=== PATIENT | male | born 1945 | race Two or more races ===

== ENCOUNTER → 2024-12-28 | Outpatient (CLI) | payer OTHER, MEDICAID, SELFPAY ==
[2024-12-28 09:00] LABS: Basophils % (Auto) 1 % (0-2.5); Eosinophils # (Auto) 0.2 Thou/mm3 (0.0-0.5); Eosinophils % (Auto) 3 % (0-10); Hematocrit 41.3 % (41.0-53.0); Hemoglobin 14.1 g/dL (13.5-16.0); Immature Granulocytes % (Auto) 0 % (0-0); Immature Granulocytes Auto 0.02 Thou/mm3 (0.00-0.00); Lymphocytes # (Auto) 1.7 Thou/mm3 (1.0-4.8); Lymphocytes % (Auto) 28 % (10-50); Mean Corpuscular HGB Conc 34.1 g/dl (31.0-37.0); Mean Corpuscular Hemoglobin 30.3 pg (25.0-35.0); Mean Corpuscular Volume 89 fL (80-100); Monocytes # (Auto) 0.7 Thou/mm3 (0.0-0.8); Monocytes % (Auto) 11 % (0-12); Neutrophils # (Auto) 3.4 Thou/mm3 (1.8-7.7); Neutrophils % (Auto) 57 % (37-80); Nucleated Red Blood Cell % 0 /100 WBC (0); Platelet Count 169 Thou/mm3 (140-440); RDW Standard Deviation 43.1 fL (35.1-43.9); Red Blood Count 4.65 Miln/mm3 (4.50-5.90); White Blood Count 6.1 Thou/mm3 (3.8-10.6)
[2024-12-28 09:06] LABS: Glucose Estimated Average 148 mg/dL (80-131); Hemoglobin A1C 6.8 % Hgb (4.8-6.0)
[2024-12-28 09:23] LABS: Vitamin D 25 Hydroxy Total 38.1 ng/mL (7.3-40.2)
[2024-12-28 09:40] LABS: Alanine Aminotransferase < 7 U/L (10-49); Albumin/Globulin Ratio 1.7 (1.2-2.2); Alkaline Phosphatase 152 U/L (46-116); Anion Gap 10 (7-16); Aspartate Amino Transferase 14 U/L (0-34); BUN/Creatinine Ratio 18 Ratio (12-20); Bilirubin,Total 0.6 mg/dL (0.3-1.2); Blood Urea Nitrogen 25 mg/dL (9-23); Calcium 8.9 mg/dL (8.3-10.6); Calcium (Corrected) 8.9 mg/dL (8.5-10.1); Carbon Dioxide 25.2 mMol/L (20.0-31.0); Cardiac Risk Estimate 4.7 RATIO (4.0-6.7); Chloride 107 mMol/L (98-107); Cholesterol 198 mg/dL (132-200); Creatinine (Component) 1.4 mg/dL (0.6-1.3); Free T4 (Free Thyroxine) 1.27 ng/dL (0.89-1.76); Globulin 2.3 gm/dL (2.3-3.5); Glucose 113 mg/dL (74-106); HDL Cholesterol 42 mg/dL (40-60); LDL Cholesterol,Calculated 104 mg/dL (0-130); Osmolality,Calculated 288 (275-295); Sodium 142 mMol/L (136-145); Thyroid Stimulating Hormone 1.66 uIU/mL (0.55-4.78); Total Protein 6.3 gm/dL (5.7-8.2); Triglycerides 258 mg/dL (30-150); eGFR 51 See Note
== END | disposition home or self-care (01) ==
LOC: COPL 07:49
PROVIDERS: PCP Internal Medicine; Referring Provider Internal Medicine; Visit Provider Internal Medicine
DX: Z00.00 Encounter for general adult medical examination without abnormal findings (principal); E55.9 Vitamin D deficiency, unspecified
CPT/HCPCS: 36415; 80053; 80061; 82306; 83036; 84439; 84443; 85025

== ENCOUNTER → 2025-02-11 | Outpatient (CLI) | payer OTHER, MEDICAID, SELFPAY ==
--- NOTE | 2025-02-11 14:42 | XR_ITS ---
Examination: Bilateral hips, AP pelvis, 5 views Technique: AP, lateral views both hips, AP pelvis, 5 views Exam date and time: February 11, 2025 1513 hours INDICATIONS: Bilateral hip pain beginning 3 weeks ago. FINDINGS: Moderate osteopenia. Moderate narrowing right and left hip joints No hip or pelvic fracture IMPRESSION: Bilateral moderate narrowing hip joints
--- NOTE | 2025-02-11 14:42 | XR_ITS ---
Examination: Lumbar spine, 5 views Technique: Lumbar spine AP, lateral, coned lateral lower lumbar spine, bilateral obliques 5 views Exam date and time: February 21, 2025 1513 hours INDICATIONS: Back pain beginning 3 weeks ago. FINDINGS: Prominent lumbar spondylosis Mild to moderate diffuse lumbar degenerative disc disease No lumbar fracture No spondylolisthesis IMPRESSION: Mild to moderate diffuse lumbar degenerative disc disease with significant spinal stenosis
== END | disposition home or self-care (01) ==
LOC: CDIM 14:22
PROVIDERS: PCP Internal Medicine; Referring Provider Internal Medicine; Visit Provider Internal Medicine
DX: M51.360 Other intervertebral disc degeneration, lumbar region with discogenic back pain only (principal); M48.061 Spinal stenosis, lumbar region without neurogenic claudication; M25.852 Other specified joint disorders, left hip; M25.851 Other specified joint disorders, right hip
CPT/HCPCS: 72110; 73523

== ENCOUNTER 2025-04-05 06:43 | Day surgery (SDC) | payer OTHER, MEDICAID, SELFPAY ==
--- NOTE | 2025-04-04 10:28 | EKG_ITS ---
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
[2025-04-04 10:31] VITALS: BMI 34.2
[2025-04-04 13:40] LABS: Basophils # (Auto) 0.0 Thou/mm3 (0.0-0.2); Basophils % (Auto) 0 % (0-2.5); Eosinophils # (Auto) 0.3 Thou/mm3 (0.0-0.5); Eosinophils % (Auto) 5 % (0-10); Hematocrit 39.9 % (41.0-53.0); Hemoglobin 13.4 g/dL (13.5-16.0); Immature Granulocytes Auto 0.02 Thou/mm3 (0.00-0.00); Lymphocytes # (Auto) 1.5 Thou/mm3 (1.0-4.8); Lymphocytes % (Auto) 24 % (10-50); Mean Corpuscular HGB Conc 33.6 g/dl (31.0-37.0); Mean Corpuscular Hemoglobin 29.8 pg (25.0-35.0); Mean Corpuscular Volume 89 fL (80-100); Monocytes # (Auto) 0.6 Thou/mm3 (0.0-0.8); Monocytes % (Auto) 9 % (0-12); Neutrophils # (Auto) 3.8 Thou/mm3 (1.8-7.7); Neutrophils % (Auto) 61 % (37-80); Nucleated Red Blood Cell # 0.00 Thou/mm3 (0.00-0.00); Nucleated Red Blood Cell % 0 /100 WBC (0); Platelet Count 198 Thou/mm3 (140-440); RDW Standard Deviation 41.6 fL (35.1-43.9); Red Blood Count 4.50 Miln/mm3 (4.50-5.90); White Blood Count 6.3 Thou/mm3 (3.8-10.6)
[2025-04-04 13:51] LABS: Anion Gap 8 (7-16); BUN/Creatinine Ratio 11 Ratio (12-20); Blood Urea Nitrogen 15 mg/dL (9-23); Calcium 9.6 mg/dL (8.3-10.6); Carbon Dioxide 24.1 mMol/L (20.0-31.0); Chloride 106 mMol/L (98-107); Creatinine (Component) 1.4 mg/dL (0.6-1.3); Estimated Creatinine Clearance 48.7 mL/min (>60); Glucose 113 mg/dL (74-106); Osmolality,Calculated 277 (275-295); Potassium 4.4 mMol/L (3.4-5.1); Sodium 138 mMol/L (136-145); eGFR 51 See Note
[2025-04-04 13:57] LABS: INR 1.0 (0.9-1.3); Partial Thromboplastin Time 26.4 Seconds (22.0-36.0); Prothrombin Time 10.6 Seconds (9.0-12.2)
[2025-04-05] VITALS (15 sets, daily range): BP systolic 91–120; BP diastolic 48–61; PULSE 47–64; RESP 13–20; TEMP 36.5–36.6; O2SAT 94–98
--- NOTE | 2025-04-05 09:09 | PC.NURSE ---
daughter geovanni bailey is requesting discharge instruction to be printed in sinhala
[2025-04-05 09:26] LABS: ACT (CATH LAB ONLY) 295.0 Seconds (89-169)
--- NOTE | 2025-04-05 12:00 | PC.NURSE ---
md interpret ekg. per md no intervention needed at this time and ok to dc patient.
--- NOTE | 2025-04-05 14:44 | ESOP_ITS ---
RE: JAIDEN TRAORE : 1945 DATE OF OPERATION: 04/05/2025 PROCEDURES PERFORMED: 1. Diagnostic left heart cardiac catheterization, selective coronary angiogram, and left ventricular angiogram, CPT 14889. 2. PCI and PTCA stent placement of the ramus intermedius, placement of drug eluting stent with a 2.5 x 12 mm Medtronic [place] drug-eluting stent, preprocedure stenosis 80%, post procedure stenosis 0%. Preprocedure BRAD flow 3 and postprocedure BRAD flow 3, CPT 44092. 3. Ultrasound-guided access of the right radial artery. 4. Conscious sedation, 30-minute duration. DIAGNOSES: Coronary artery disease, unstable angina pectoris, and abnormal stress test, status post multivessel stent placement. HISTORY AND INDICATIONS: The patient is an 79-year-old with a history of CAD, hypertension, hypercholesterolemia, diabetes mellitus, hypothyroidism, and a history of CAD with stent placement of the LAD and right coronary artery in the past with recurrent shortness of breath and chest pressure. Cardiac stress test nuclear scan showed anterolateral ischemia. Coronary angiogram was recommended to assess the patient is a candidate for intervention and revascularization. DESCRIPTION OF PROCEDURE: The patient was brought to the cardiac catheterization laboratory where he was given 2 mg of Versed and 50 mcg of fentanyl for coconscious sedation. Right radial approach was taken. The right radial artery was cannulated using a micropuncture technique. A 6-Stateless [place]ides[place]ath was introduced. Selective right and left coronary angiograms performed by Christina right catheter as well as left coronary angiogram was performed by TIG-4 diagnostic catheter. The patient tolerated the diagnostic procedure well with no complications. The diagnostic procedure showed the following findings. The right coronary artery is large and dominant and showed evidence of stents in the proximal and mid segments, which are widely patent. Left coronary system: The left main coronary artery is normal. The left anterior descending artery showed a stent in the proximal LAD, which is widely patent. The circumflex artery showed moderate 60% stenosis in the mid circumflex artery. Large ramus intermedius, a 2.5 mm vessel, showed evidence of an 80% in discrete stenosis. This appears to be the culprit lesion. Left ventricular pressure 130/10, aortic procedure 130/80. No gradient across the aortic valve. Left ventricular angiogram showed normal left ventricular wall motion, ejection fraction of 55 to 60% coronary. Following diagnostic procedure, the patient was given an additional heparin initial radial cocktail 3000 units and 4000 units of heparin were given for a total of 7000 units, and the ACT was 295. We proceeded with PCI. A 6-Stateless JL 3.5 guiding catheter was used to engage the left main coronary artery. A 0.014 Runthrough guidewire was used to cross the lesion successfully. Direct stenting was performed by using a 2.5 x 12 mm Medtronic [place] drug- eluting stent, which was deployed successfully at maximum 14 atmospheric pressures. Two inflations were performed. Final angiogram showed a widely patent ramus intermedius. No residual stenosis. SUMMARY OF FINDINGS: 1. Widely patent stents involving the LAD and right coronary arteries. 2. Normal left ventricular function. 3. Severe 80% stenosis of the large ramus intermedius, which underwent successful PTCA and stent placement with a drug-eluting stent, a 2.5 x 12 mm [place] Medtronic stent. 4. Moderate stenosis of the circumflex artery. RECOMMENDATIONS: Continue medical management. Aspirin and Plavix will be continued. If he has significant angina pectoris, consider stent placement in the circumflex artery if necessary in the future. DT: 13:10:24 TT: 14:42:00 Ref: [id number] - TID: [id number]
== END 2025-04-05 12:22 | disposition home or self-care (01) ==
PROVIDERS: PCP Internal Medicine; Referring Provider Internal Medicine Cardiovascular Disease; Visit Provider Internal Medicine Cardiovascular Disease
PROC: (CPT 93458; principal; 2025-04-05 07:30)
DX: I25.118 Atherosclerotic heart disease of native coronary artery with other forms of angina pectoris (principal); I10 Essential (primary) hypertension; E11.9 Type 2 diabetes mellitus without complications; R06.09 Other forms of dyspnea; E78.00 Pure hypercholesterolemia, unspecified; Z95.5 Presence of coronary angioplasty implant and graft; Z79.84 Long term (current) use of oral hypoglycemic drugs; Z79.02 Long term (current) use of antithrombotics/antiplatelets; Z79.899 Other long term (current) drug therapy; E03.9 Hypothyroidism, unspecified; Z79.82 Long term (current) use of aspirin; Z79.890 Hormone replacement therapy
CPT/HCPCS: 93458; C9600; 36415; 80048; 85025; 85347; 85610; 85730; 93005; 99152; 99153; A4649; C1769; C1874; C1887; C1894; J0168; J0461; J1643; J2250; J2312; J2371; J3010; J3490; Q9967; A9270; J2305

== ENCOUNTER → 2025-05-23 | Outpatient (CLI) | payer OTHER, MEDICAID, SELFPAY ==
[2025-05-23 08:39] LABS: Basophils # (Auto) 0.0 Thou/mm3 (0.0-0.2); Basophils % (Auto) 0 % (0-2.5); Eosinophils # (Auto) 0.2 Thou/mm3 (0.0-0.5); Eosinophils % (Auto) 4 % (0-10); Hematocrit 40.9 % (41.0-53.0); Hemoglobin 13.8 g/dL (13.5-16.0); Immature Granulocytes Auto 0.01 Thou/mm3 (0.00-0.00); Lymphocytes # (Auto) 1.3 Thou/mm3 (1.0-4.8); Lymphocytes % (Auto) 23 % (10-50); Mean Corpuscular HGB Conc 33.7 g/dl (31.0-37.0); Mean Corpuscular Hemoglobin 30.1 pg (25.0-35.0); Mean Corpuscular Volume 89 fL (80-100); Monocytes # (Auto) 0.6 Thou/mm3 (0.0-0.8); Monocytes % (Auto) 10 % (0-12); Neutrophils # (Auto) 3.8 Thou/mm3 (1.8-7.7); Neutrophils % (Auto) 63 % (37-80); Nucleated Red Blood Cell # 0.00 Thou/mm3 (0.00-0.00); Nucleated Red Blood Cell % 0 /100 WBC (0); Platelet Count 188 Thou/mm3 (140-440); RDW Standard Deviation 41.1 fL (35.1-43.9); Red Blood Count 4.59 Miln/mm3 (4.50-5.90); White Blood Count 5.9 Thou/mm3 (3.8-10.6)
[2025-05-23 09:06] LABS: Vitamin D 25 Hydroxy Total 48.6 ng/mL (7.3-40.2)
[2025-05-23 09:10] LABS: Alanine Aminotransferase < 7 U/L (10-49); Albumin, Serum 4.4 gm/dL (3.4-4.8); Albumin/Globulin Ratio 2.2 (1.2-2.2); Alkaline Phosphatase 158 U/L (46-116); Anion Gap 11 (7-16); Aspartate Amino Transferase 14 U/L (0-34); BUN/Creatinine Ratio 17 Ratio (12-20); Bilirubin,Total 0.6 mg/dL (0.3-1.2); Blood Urea Nitrogen 20 mg/dL (9-23); Calcium 9.7 mg/dL (8.3-10.6); Calcium (Corrected) 9.7 mg/dL (8.5-10.1); Carbon Dioxide 26.0 mMol/L (20.0-31.0); Cardiac Risk Estimate 3.5 RATIO (4.0-6.7); Chloride 106 mMol/L (98-107); Cholesterol 149 mg/dL (132-200); Creatinine (Component) 1.2 mg/dL (0.6-1.3); Free T4 (Free Thyroxine) 1.70 ng/dL (0.89-1.76); Globulin 2.0 gm/dL (2.3-3.5); Glucose 91 mg/dL (74-106); HDL Cholesterol 42 mg/dL (40-60); LDL Cholesterol,Calculated 86 mg/dL (0-130); Osmolality,Calculated 287 (275-295); Potassium 4.6 mMol/L (3.4-5.1); Sodium 143 mMol/L (136-145); Thyroid Stimulating Hormone 0.61 uIU/mL (0.55-4.78); Total Protein 6.4 gm/dL (5.7-8.2); Triglycerides 107 mg/dL (30-150); eGFR > 60 See Note
[2025-05-23 09:37] LABS: Glucose Estimated Average 123 mg/dL (80-131); Hemoglobin A1C 5.9 % Hgb (4.8-6.0)
== END | disposition home or self-care (01) ==
LOC: COPL 07:31
PROVIDERS: PCP Internal Medicine; Referring Provider Internal Medicine; Visit Provider Internal Medicine
DX: Z00.00 Encounter for general adult medical examination without abnormal findings (principal); E55.9 Vitamin D deficiency, unspecified
CPT/HCPCS: 36415; 80053; 80061; 82306; 83036; 84439; 84443; 85025

== ENCOUNTER 2025-06-26 01:55 | Inpatient (IN) | payer OTHER, MEDICAID, MEDICARE, SELFPAY ==
[2025-06-26] VITALS (82 sets, daily range): BP systolic 91–139; BP diastolic 44–78; PULSE 90–110; RESP 3–98; TEMP 36.3–37.7; O2SAT 86–99
--- NOTE | 2025-06-26 02:00 | XR_ITS ---
Examination: CTA carotids with intravenous contrast CTA brain, head with intravenous contrast. 2-D sagittal, coronal reconstructions. 3-D reconstructions. Exam date and time: June 26, 2025, 0210 hours INDICATIONS: Stroke alert, onset focal neurologic deficit left arm weakness beginning 1 hour ago CTDI: vol (mGy) 12.1 DLP: (mGycm) 557 Technique: Multiple CTA axial brain, head carotid images post intravenous contrast injection 75 cc, [id number]. 2-D sagittal, coronal reconstructions. 3-D reconstructions, 3-D post processing including vascular maximum intensity projection images. Low dose protocols were performed. One or more of the following dose reduction techniques were used; automated exposure control, adjustment of the mA and/or KV according to patient size, use of iterative reconstruction technique. Findings: No significant common carotid carotid bifurcation or internal carotid artery calcification Moderate calcification in both carotid bifurcations Codominant vertebral arteries with no critical stenoses No cerebral large vessel arterial occlusions or thrombus dissection or cerebral aneurysm IMPRESSION: No significant neck arterial stenoses No cerebral large vessel arterial occlusions or thrombus
--- NOTE | 2025-06-26 02:00 | XR_ITS ---
EXAMINATION: AP chest single view TECHNIQUE: AP portable upright chest single view Date and time: June 26, 2025, 0256 hours, comparison November 25, 2023 INDICATIONS: Stroke protocol with shortness of breath chest pain beginning 5 hours ago. FINDINGS: Mild prominence left ventricle Ectatic thoracic aorta. Moderate vascular congestion. No aspiration pneumonia IMPRESSION: Moderate vascular congestion No aspiration pneumonia
--- NOTE | 2025-06-26 02:00 | XR_ITS ---
Examination: CT brain head without contrast. 2-D sagittal coronal reconstructions Date and time of exam: June 26, 2025, 0209 hours INDICATIONS: Stroke alert, onset left arm weakness patient Nirali and down unconscious 1 hour ago CTDI: vol (mGy): 54.3 DLP: (mGycm): 1104 Technique: Multiple CT axial sections of the brain have been obtained, 5 mm slice thickness. Contrast has not been administered. 2-D sagittal, coronal reconstructions have been obtained Low dose protocols were performed. One or more of the following dose reduction techniques were used; automated exposure control, adjustment of the mA and/or KV according to patient size, use of iterative reconstruction technique. Findings: No significant ventricular enlargement. Intra-axial or extra-axial hemorrhage density is not seen. No mass effect or midline shift Basal cisterns are not remarkable. Fourth ventricle is midline. Cranial vault intact. Impression: Negative for acute hemorrhage, mass effect or midline shift
--- NOTE | 2025-06-26 02:01 | PD.EDNEURO ---
Neuro Symptoms Deficit-RME/HPI General Chief Complaint: Neuro Symptoms/Deficit Stated Complaint: STROKE Time Seen by Provider: 06/26/25 01:58 Arrival date/time: 06/26/25 01:55 RME / HPI RME / HPI Narrative: DR. MALCOLM MAIN ED EVALUATION: 79 y/o male with Hx of HTN, Type II DM, CAD, and HLD BIBA from home presents to ED with reported sudden onset left-sided weakness approximately 1 hour ago. Reports getting out of bed to go to the restroom in his normal state of health. After returning from the restroom, patient experienced left-sided weakness and not being able to get back into bed. Patient was found face-down by family at 1:05 AM. Denies head strike and LOC. Per EMS, patient was found sitting, BS on scene was 210 mg/dL, and blood pressure within normal limits. Patient got up approximately at midnight and ambulated to the bathroom. There was no abnormality. Patient then went to turn around to ambulate back to bed and that is when he had sudden onset of left-sided weakness causing him to fall to the ground. Related Data Home Medications ?Medication ?Instructions ?Recorded ?Confirmed metformin 500 mg tablet 500 mg PO BID #0 tabs 07/26/16 04/05/25 (Glucophage) Held on 04/05/25. Instructions: Resume on 04/07/25. hold metformin may resume on 04/07 tamsulosin 0.4 mg capsule (Flomax) 0.4 mg PO QDAY ##0 09/03/16 04/05/25 aspirin 81 mg tablet 81 mg PO QDAY 11/13/23 04/05/25 benazepril 10 mg tablet (Lotensin) 10 mg PO QDAY 11/13/23 04/05/25 clopidogrel 75 mg tablet 75 mg PO QDAY 11/13/23 04/05/25 levothyroxine 150 mcg tablet 150 mcg PO QDAY 11/13/23 04/05/25 furosemide 20 mg tablet 20 mg PO QAM 04/05/25 04/05/25 oxybutynin chloride 5 mg tablet 5 mg PO QDAY 04/05/25 04/05/25 Previous Rx's ?Medication ?Instructions ?Recorded atorvastatin 40 mg tablet 40 mg PO QPM #30 tabs 11/27/23 empagliflozin 10 mg tablet 10 mg PO QAM #30 tabs 11/27/23 (Jardiance) Allergies Allergy/AdvReac Type Severity Reaction Status Date / Time ibuprofen Allergy Intermediate RASH Verified 04/04/25 10:30 Review of Systems Review of Systems Systems Reviewed: All systems reviewed, normal except as documented Past Medical History Past Medical History CARDIAC: Positive Cardiac Disorders, Angina, Coronary Artery Disease, Hypercholesterolemia, Edema and Hypertension GENITOURINARY: Positive Genitourinary Disorders and Benign Prostatic Hyperplasia MUSCULOSKELETAL: Positive Musculoskeletal Disorders and Arthritis ENT: Positive Cataracts ENDOCRINE: Positive Endocrine Disorders and Diabetes Mellitus Type 2 OTHER HISTORY: Positive Shingles Surgical History SURGICAL: Positive Cardiac Surgery, Coronary Stent (in [place]), Cardiac Catheterization, Angiogram, Thyroidectomy and Abdominal Surgery ED Exam Narrative Physical exam: Generally patient is alert, head is normocephalic atraumatic, neck showed no bruits, eyes pupils equal round reactive to light with extraocular movements intact, face shows no facial asymmetry, heart regular rate and rhythm, lungs clear to auscultation equal bilaterally, abdomen soft bowel sounds present nondistended nontender without pulsatile mass neurologic exam showed 3/5 muscle strength at the left shoulder 4/5 muscle strength of the left elbow and left wrist 4/5 muscle strength the left lower extremity with 5/5 muscle strength to right upper and right lower extremity. There was no facial asymmetry and no dysarthria. Stroke alert was called before the patient presented here to the emergency room. Teleneurology saw the patient immediately. Through consultation with teleneurology the patient was found to be a candidate for TNK. Patient's blood pressure is 122/55 with a blood sugar of 200. Patient did receive TNK. Lab work was essentially unremarkable. Patient had frequent neurologic checks while here in the emergency room. EKG showed sinus tachycardia at a rate of 102 with Q waves in the inferior leads without ST segment change. I did discuss this case with the ICU resident and the patient will be admitted to the ICU for further treatment and evaluation for his right sided ischemic CVA status post TNK. Course Quality Measures Suspected type of Stroke: Acute Ischemic (Right-sided) Last known well (date): 06/26/25 Last know well: unknown Tenecteplase given: within 60 min of arrival stroke Orders Category Date Time Status Bedside Blood Glucose NOW Care 06/26/25 02:00 Active Network Consultant NOW Care 06/26/25 02:00 Active Continuous Pulse Oximetry NOW Care 06/26/25 02:00 Completed EKG (ED ONLY) *Do not use* NOW Care 06/26/25 02:00 Completed In and Out Catheter NEEDED Care 06/26/25 02:00 Active Insert IV NOW Care 06/26/25 02:00 Active NIH Stroke Scale Q4HX8,QSHIFT Care 06/26/25 02:28 Active NIH Stroke Scale now Care 06/26/25 02:00 Active NPO NOW Care 06/26/25 02:00 Active Neuro Check Q15M Care 06/26/25 02:28 Active Nurse Swallow Screen x1 Care 06/26/25 02:00 Active Vital Signs Q5M Care 06/26/25 02:18 Active Consult to Neurology / Tele-Neurology Routine Cons 06/26/25 02:[address] angio stroke protocol Stat Exams 06/26/25 02:[address] stroke protocol Stat Exams 06/26/25 02:00 Taken EKG (ED Only) Stat Exams 06/26/25 02:00 Ordered XR chest 1V portable Stat Exams 06/26/25 02:00 Ordered CBC Stat Lab 06/26/25 02:00 Completed Comprehensive Metabolic Panel Stat Lab 06/26/25 02:00 Completed Drug Screen,Urine Stat Lab 06/26/25 02:46 Ordered HCG Titer if Positive Stat Lab 06/26/25 02:00 Completed Magnesium Stat Lab 06/26/25 02:00 Completed Partial Thromboplastin Time Stat Lab 06/26/25 02:00 Completed Prothrombin Time with INR Stat Lab 06/26/25 02:00 Completed Troponin I Stat Lab 06/26/25 02:00 Completed Urinalysis, C/S if Indicated Stat Lab 06/26/25 02:46 Ordered Labetalol* IV [Trandate IV] Med 06/26/25 02:13 Active 10 mg IVP PRNMRX1 PRN Labetalol* IV [Trandate IV] Med 06/26/25 02:13 Active 10 mg IVP PRNMRX1 PRN Labetalol* IV [Trandate IV] Med 06/26/25 01:59 Active 10 mg IVP Q15M PRN Ondansetron Inj [Zofran Inj] Med 06/26/25 01:59 Active 4 mg IVP Q4HR PRN Tenecteplase Inj [TNKase Inj] Med 06/26/25 02:22 Discontinued 23.4 mg IV X1 ONE Tenecteplase Inj [TNKase Inj] Med 06/26/25 02:13 Discontinued 23.5 mg IV X1 ONE Tenecteplase Inj [TNKase Inj] Med 06/26/25 02:20 Discontinued 50 mg .ROUTE .STK-MED ONE niCARdipine/NS 20MG IVPB [Cardene Ivpb] Med 06/26/25 02:13 Active 20 mg in 200 ml IV 5 mg/hr Oxygen Delivery NOW RT 06/26/25 02:00 Active Vital Signs Vital signs: Vital Signs Temperature 98.5 F 06/26/25 01:57 Pulse Rate 104 H 06/26/25 01:57 Respiratory Rate 18 06/26/25 01:57 Blood Pressure 122/67 06/26/25 01:57 Pulse Oximetry (%) 95 06/26/25 01:57 Oxygen Delivery Method Room Air 06/26/25 01:57 Neuro Symptoms / Deficit MDM Narrative MDM Narrative:: Scribe Attestation: Margarita Fredeirck, am scribing for and in the presence of Dr. Malcolm. Provider Notation: Although this document has been carefully reviewed, there may still be some phonetic and other typographical errors. These errors are purely grammatical due to imperfections in the software program and should not be construed in any way to compromise the substance of the patient's medical care during this visit. Patient data External records reviewed:: [facility] previous records (Reviewed prior ED records from 11/25/23. Patient was seen for Chest pain.) and EMS form Clinical information provided by:: patient and EMS Social determinants that could affect healthcare access:: none Patient has the following chronic illnesses:: Angina, Coronary Artery Disease, Hypercholesterolemia, Edema, Hypertension, Benign Prostatic Hyperplasia, Arthritis, Cataracts, and Diabetes Mellitus Type 2 How is presenting disease/condition affected by chronic disease/condition?: exacerbated by Evaluation data The following diagnostics were reviewed and interpreted by me:: lab results, radiology exam(s) and EKG tracing(s) Lab and/or radiology exams considered but not ordered:: None Interpretation Summary: RADIOLOGY Head/Brain CT: Findings: There is no evidence of intracranial hemorrhage, mass effect or midline shift. There are periventricular white matter hypodensities, suggestive of chronic small vessel ischemia. The CSF spaces are prominent, consistent with volume loss. The calvarium is intact. The mastoid air cells and visualized paranasal sinuses are clear. Prominent atherosclerotic calcification is noted. Impression: No evidence of intracranial hemorrhage, mass effect or calvarial fracture. Periventricular chronic small vessel ischemia and volume loss. Head/Neck CTA: Pending official radiology report. Chest X-Ray: Pending official radiology report. Medications / Prescriptions Medications or Prescriptions considered but not ordered:: None Medication administrations:: Medication Administration History Nicardipine/Sodium Chloride (Cardene Ivpb) 20 mg in 200 mls @ 50 mls/hr IV .Q4H PRN; Protocol PRN Reason: Per Nicardipine Stroke Protocol Stop: 07/26/25 02:12 Labetalol HCl (Labetalol Inj 5 Mg/Ml Vial 4 Ml) 10 mg IVP Q15M PRN PRN Reason: hypertension Labetalol HCl (Labetalol Inj 5 Mg/Ml Vial 4 Ml) 10 mg IVP PRNMRX1 PRN PRN Reason: SBP > 185 mmHg and/or DBP > 110 Labetalol HCl (Labetalol Inj 5 Mg/Ml Vial 4 Ml) 10 mg IVP PRNMRX1 PRN PRN Reason: SBP > 180 mmHg or DBP > 105 Ondansetron HCl (Ondansetron Inj 2 Mg/Ml Inj 2 Ml) 4 mg IVP Q4HR PRN PRN Reason: NAUSEA OR VOMITING Stop: 07/26/25 01:58 Discontinued Medications Tenecteplase (Tenecteplase Inj 50 Mg Vial) Confirm Administered Dose 50 mg .ROUTE .STK-MED ONE Stop: 06/26/25 02:21 Last Admin: 06/26/25 02:29 Dose: Not Given Documented By: DUNIA Non-Admin Reason: Override Medication Tenecteplase (Tenecteplase Inj 50 Mg Vial) 23.4 mg 0.25 mg/kg (23.4 mg) IV X1 ONE Stop: 06/26/25 02:23 Last Admin: 06/26/25 02:23 Dose: 23.4 mg Documented By: DUNIA Co-signed By: Tenecteplase (Tenecteplase Inj 50 Mg Vial) 23.5 mg IV X1 ONE Stop: 06/26/25 02:14 See above if any. Consultations Consultation(s) initiated? (list below): Yes Consultation #1 (Physician, Specialty, Details): Telli-Neurologist made aware of the patient?s HPI, PMHx, lab and/or radiology results. Discussed treatment plan. Will consult an admission to the hospitalist. Time: 02:35 Consultation #2 (Physician, Specialty, Details): Discussed with ICU resident for admission. Reviewed the patient?s HPI, PMHx, lab and/or radiology results. Discussed treatment plan. Will consult an admission to the Equipment Sales Specialist. Time: 02:43 Diagnosis Neuro Differential Diagnosis: delirium, subarachnoid hemorrhage, peripheral neuropathy, cerebrovascular accident and transient cerebral ischemia Most likely diagnosis given after review of the tests above:: None Admission Indicated Admission indicated?: indicated Admission Request Was there a request for admission?: Yes Admission Attestation Admission request attestation: Discussed case with [] from Hospitalist service regarding admission. Discussed patients ED course, exam findings, labs, and radiology results. The Hospitalist [agrees,declines] to accept the patient for admission. Disposition Plan Disposition Plan: Admit Critical Care Time Critical Care Time Critical Care Time: Yes Total Critical Care Time (min.): 35 Attestation: The high probability of sudden, clinically significant deterioration in the patient?s condition required the highest level of my preparedness to intervene urgently. The services I provided to this patient were to treat and/or prevent clinically significant deterioration. Services included the following: chart data review, reviewing nursing notes and/or old charts, documentation time, clinical services consultant collaboration regarding findings and treatment options, medication orders and management, direct patient care, vital sign assessments and ordering, interpreting and reviewing diagnostic studies and lab tests. Aggregate critical care time includes only time during which I was engaged in work directly related to the patient?s care, as described above, whether at bedside or elsewhere in the Emergency Department. It did not include time spent performing other reported procedures or the services of residents, students, nurses or physician assistants. Discharge Plan Plan Patient Disposition: Admit Acute Care w/in Hospital Prescriptions/Referrals Prescriptions/Med Rec: No Action metformin [Glucophage] 500 MG tablet 500 mg PO BID Qty: 0 tamsulosin [Flomax] 0.4 MG capsule,extended release 24hr 0.4 mg PO QDAY Qty: 0 atorvastatin 40 mg tablet 40 mg PO QPM Qty: 30 0RF Jardiance 10 mg tablet 10 mg PO QAM Qty: 30 0RF clopidogrel 75 mg Tablet 75 mg PO QDAY levothyroxine 150 mcg Tablet 150 mcg PO QDAY aspirin 81 mg Tablet 81 mg PO QDAY benazepril [Lotensin] 10 mg Tablet 10 mg PO QDAY furosemide 20 mg tablet 20 mg PO QAM oxybutynin chloride 5 mg tablet 5 mg PO QDAY Problem List Clinical Impression: Ischemic cerebrovascular accident (CVA) Patient/Caregiver Discharge Instructions Print Language: Kazakh Stand Alone Forms: [facility] Award Info., Patient Portal Info Letter
[2025-06-26 02:08] LABS: Basophils # (Auto) 0.0 Thou/mm3 (0.0-0.2); Basophils % (Auto) 0 % (0-2.5); Eosinophils # (Auto) 0.0 Thou/mm3 (0.0-0.5); Eosinophils % (Auto) 0 % (0-10); Hematocrit 37.7 % (41.0-53.0); Hemoglobin 12.6 g/dL (13.5-16.0); Immature Granulocytes Auto 0.08 Thou/mm3 (0.00-0.00); Lymphocytes # (Auto) 0.4 Thou/mm3 (1.0-4.8); Lymphocytes % (Auto) 2 % (10-50); Mean Corpuscular HGB Conc 33.4 g/dl (31.0-37.0); Mean Corpuscular Hemoglobin 29.2 pg (25.0-35.0); Mean Corpuscular Volume 87 fL (80-100); Monocytes # (Auto) 0.8 Thou/mm3 (0.0-0.8); Monocytes % (Auto) 5 % (0-12); Neutrophils # (Auto) 14.7 Thou/mm3 (1.8-7.7); Neutrophils % (Auto) 92 % (37-80); Nucleated Red Blood Cell # 0.00 Thou/mm3 (0.00-0.00); Nucleated Red Blood Cell % 0 /100 WBC (0); Platelet Count 144 Thou/mm3 (140-440); RDW Standard Deviation 41.8 fL (35.1-43.9); Red Blood Count 4.32 Miln/mm3 (4.50-5.90); White Blood Count 16.0 Thou/mm3 (3.8-10.6)
[2025-06-26 02:22] LABS: INR 1.1 (0.9-1.3); Partial Thromboplastin Time 33.0 Seconds (22.0-36.0); Prothrombin Time 11.6 Seconds (9.0-12.2)
[2025-06-26] MEDS: TENECTEPLASE INJ 50 MG VIAL 23.4 MG IV (02:23)
--- NOTE | 2025-06-26 02:29 | PRELIM_ITS ---
CT scan of the head without intravenous contrast (axial sections with sagittal and coronal reformats) June 26, 2025 at 0209 hours Clinical history: Focal neuro deficit, stroke suspected Comparison: None Findings: There is no evidence of intracranial hemorrhage, mass effect or midline shift. There are periventricular white matter hypodensities, suggestive of chronic small vessel ischemia. The CSF spaces are prominent, consistent with volume loss. The calvarium is intact. The mastoid air cells and visualized paranasal sinuses are clear. Prominent atherosclerotic calcification is noted. Impression: No evidence of intracranial hemorrhage, mass effect or calvarial fracture. Periventricular chronic small vessel ischemia and volume loss. Discussion Details: Results verbally communicated to : Dr. Beyer at 02:25 AM 06/26/2025 Report Electronically Signed By: Bin Swenson 06/26/2025 2:29:01 AM [EST]
[2025-06-26 02:33] LABS: HCG Titer if Positive Negative
[2025-06-26 02:34] LABS: Alanine Aminotransferase < 7 U/L (10-49); Albumin, Serum 4.4 gm/dL (3.4-4.8); Albumin/Globulin Ratio 1.6 (1.2-2.2); Alkaline Phosphatase 136 U/L (46-116); Anion Gap 11 (7-16); Aspartate Amino Transferase 16 U/L (0-34); BUN/Creatinine Ratio 16 Ratio (12-20); Bilirubin,Total 1.0 mg/dL (0.3-1.2); Blood Urea Nitrogen 28 mg/dL (9-23); Calcium 9.2 mg/dL (8.3-10.6); Calcium (Corrected) 9.2 mg/dL (8.5-10.1); Carbon Dioxide 21.9 mMol/L (20.0-31.0); Chloride 104 mMol/L (98-107); Creatinine (Component) 1.7 mg/dL (0.6-1.3); Globulin 2.7 gm/dL (2.3-3.5); Glucose 199 mg/dL (74-106); Magnesium 1.9 mg/dL (1.6-2.6); Osmolality,Calculated 285 (275-295); Potassium 4.4 mMol/L (3.4-5.1); Sodium 137 mMol/L (136-145); Total Protein 7.1 gm/dL (5.7-8.2); Troponin I < 0.020 ng/mL (0.0-0.045); eGFR 40 See Note
--- NOTE | 2025-06-26 02:37 | PD.TNEURO ---
Tele Neuro Consultation Consultation Date 06/26/25 Most Recent Vital Signs Last Vital Signs Temp 98.5 F 06/26/25 01:57 Pulse 104 H 06/26/25 01:57 Resp 18 06/26/25 01:57 BP 133/58 H 06/26/25 02:23 Pulse Ox 95 06/26/25 01:57 O2 Del Method Room Air 06/26/25 01:57 Laboratory-Coagulation Panel PT 11.6 Seconds (9.0-12.2) 06/26/25 02:00 INR 1.1 (0.9-1.3) 06/26/25 02:00 APTT 33.0 Seconds (22.0-36.0) 06/26/25 02:00 Consultation Narrative [facility] Tele[facility]urology Consult Services Patient Name:???Moises Randle Date of :???1945 Identification Number:??? Date of Service:???06/26/2025 01:48:48 Diagnosis:?I63.89 - Cerebrovascular accident (CVA) due to other mechanism ([facility]) Impression: ?79YOM with a PMHx of HTN, HLD, DM2, thyroid cancer s/p thyroidectomy, CAD, CHF, presenting to the [facility] ED in the setting of sudden onset L sided weakness. In setting of presentation with subtle albeit notable L hemiparesis, principal concern involves a acute ischemic stroke involving the R hemisphere (likely small vessel etiology), and given potentially disabling nature of his L sided weakness, we presented patient with the option of proceeding forward with thrombolytic therapy (specifically Tenecteplase or TNK), in hopes of aiding in the resolution of patient's L sided weakness. ?I discussed contraindications to thrombolytics with patient and no contraindications to thrombolytics reported. I discussed with patient that the major risk of thrombolytics (such as Tenecteplase or TNK) is bleeding, which can occur anywhere in the body and can be significant enough to cause symptoms and worsening of neurologic status. Approximately 3 out of 100 people that receive TNK do worse after administration (usually due to bleeding complications), with 1 out of 100 dying due to complications from TNK administration. I explained that the reason the medication is offered is approximately 1/3 of patient that receive thrombolytics (TNK) have improvement in their neurologic status after administration (with approximately 63% remaining of patients that neither do worse nor better). We also discussed that a small percentage of people (up to 5%) can have a significant allergic reaction to thrombolytics which can rarely be severe (which may necessitate the need for intubation). After our discussion of these risks/benefits, the patient elected to proceed with administration. TNK was given at 02:24 on 06/26/2025; moving forward, recommend admission to the ICU for post-thrombolytic monitoring and stroke workup. Our recommendations are outlined below. Recommendations: IV Tenecteplase recommended. I confirmed the following. (Patient name, , MRN, Blood Pressure, dose of Thrombolytic and waste, weight completed by stretcher/scale not stated weight, have ED staff inform ED MD of thrombolytic decision) Thrombolytic bolus given Without Complication. IV Tenecteplase Total Dose ? 23.5 mg (Dose Rounding Per Facility Protocol) Routine post Thrombolytic monitoring including neuro checks and blood pressure control during/after treatment Monitor blood pressure Check blood pressure and neuro assessment every 15 min for 2 h, then every 30 min for 6 h, and finally every hour for 16 h. Manage Blood Pressure per post Thrombolytic protocol. ? Follow designated hospital protocol for admission and post thrombolytic care ? CT brain 24 hours post Thrombolytic ? NPO until swallowing screen performed and passed ? No antiplatelet agents or anticoagulants (including heparin for DVT prophylaxis) in first 24 hours ? No Slaughter catheter, nasogastric tube, arterial catheter or central venous catheter for 24 hr, unless absolutely necessary ? Telemetry ? Bedside swallow evaluation ? HOB less than 30 degrees ? Euglycemia ? Avoid hyperthermia, PRN acetaminophen ? DVT prophylaxis ? Inpatient Neurology Consultation ? Stroke evaluation as per inpatient neurology recommendations Discussed with ED physician Advanced Imaging: CTA Head and Neck Completed. LVO:No Patient is not a candidate for ROLAND Metrics: Last Known Well: 06/26/2025 00:00:00 Arrival Time: 06/26/2025 01:55:00 Activation Time: 06/26/2025 01:48:47 Initial Response Time: 06/26/2025 01:49:52 ETA Time reported by hospital: 5 Minutes.Symptoms: Sudden onset L sided weakness. Initial patient interaction: 06/26/2025 01:55:01 NIHSS Assessment Completed: 06/26/2025 02:01:10Patient is a candidate for Thrombolytic. Thrombolytic Medical Decision: 06/26/2025 02:17:33 Needle Time: 06/26/2025 02:24:00Weight Noted by Staff: [address] Head: I personally reviewed all the CT images that were available to me and it showed: no blood products or early ischemic changes Primary Provider Notified of Diagnostic Impression and Management Plan on: 06/26/2025 02:30:24 Thrombolytic Contraindications: Last Known Well > 4.5 hours:?No CT Head showing hemorrhage:?No Ischemic stroke within 3 months:?No Severe head trauma within 3 months:?No Intracranial/intraspinal surgery within 3 months:?No History of intracranial hemorrhage:?No Symptoms and signs consistent with an SAH:?No GI malignancy or GI bleed within 21 days:?No Coagulopathy: Platelets <100 000 /mm3, INR >1.7, aPTT>40 s, or PT >15 s:?No Treatment dose of LMWH within the previous 24 hrs:?No Use of NOACs in past 48 hours:?No Glycoprotein IIb/IIIa receptor inhibitors use:?No Symptoms consistent with infective endocarditis:?No Suspected aortic arch dissection:?No Intra-axial intracranial neoplasm:?No Thrombolytic Decision and Management Plan: Management with thrombolytic treatment was explained to the Patient as was risks and benefits and alternatives to the treatment. Patient agrees with the decision to proceed with thrombolytic treatment. . All questions were answered and the Patient expressed understanding of the treatment plan. History of Present Illness:Patient is a 79 year old Male. Patient was brought by EMS for symptoms of Sudden onset L sided weakness. 79YOM with a PMHx of HTN, HLD, DM2, thyroid cancer s/p thyroidectomy, CAD, CHF, presenting to the [facility] ED in the setting of sudden onset L sided weakness. Per patient, recalls waking up at appx midnight on 06/26 in his normal state of health and ambulating to the restroom without issue. On returning to his bed, he recalls reaching a step and being unable to lift his leg, noticing sudden weakness in his L leg causing him to fall forward. Patient found by family shortly thereafter, face down on the ground. Patient denies any active pain with no changes in vision or speech and no previous history of strokes or seizures. Past Medical History: ?Hypertension ?Diabetes Mellitus ?Hyperlipidemia ?Coronary Artery Disease ?There is no history of Atrial Fibrillation ?There is no history of Seizures Medications: No Anticoagulant use? Antiplatelet use:?Yes?Aspirin 81 Reviewed EMR for current medications Allergies:? Reviewed Social History: Drug Use: No Family History: There is no family history of premature cerebrovascular disease pertinent to this consultation ROS : 14 Points Review of Systems was performed and was negative except mentioned in HPI. Past Surgical History: There Is No Surgical History Contributory To Today?s Visit Examination: BP(107/59),?Pulse(99),?Blood Glucose(210) 1A: Level of Consciousness - Alert; keenly responsive?+ 0 1B: Ask Month and Age - Both Questions Right?+ 0 1C: Blink Eyes & Squeeze Hands - Performs Both Tasks?+ 0 2: Test Horizontal Extraocular Movements - Normal?+ 0 3: Test Visual Jones - No Visual Loss?+ 0 4: Test Facial Palsy (Use Grimace if Obtunded) - Minor paralysis (flat nasolabial fold, smile asymmetry)?+ 1 5A: Test Left Arm Motor Drift - Drift, but doesn't hit bed?+ 1 5B: Test Right Arm Motor Drift - No Drift for 10 Seconds?+ 0 6A: Test Left Leg Motor Drift - Drift, but doesn't hit bed?+ 1 6B: Test Right Leg Motor Drift - No Drift for 5 Seconds?+ 0 7: Test Limb Ataxia (FNF/Heel-Doss) - No Ataxia?+ 0 8: Test Sensation - Normal; No sensory loss?+ 0 9: Test Language/Aphasia - Normal; No aphasia?+ 0 10: Test Dysarthria - Normal?+ 0 11: Test Extinction/Inattention - No abnormality?+ 0 NIHSS Score:?3 Pre-Morbid Modified John Scale: 1 Points = No significant disability despite symptoms; able to carry out all usual duties and activities Spoke with :?Dr. Beyer This consult was conducted in real time using interactive audio and video technology. Patient was informed of the technology being used for this visit and agreed to proceed. Patient located in hospital and provider located at home/office setting. Patient is being evaluated for possible acute neurologic impairment and high probability of imminent or life-threatening deterioration. I spent total of 30 minutes providing care to this patient, including time for face to face visit via telemedicine, review of medical records, imaging studies and discussion of findings with providers, the patient and/or family. Dr Bryan Cantu [facility] For Inpatient follow-up with [facility] physician please call [facility] at . As we are not an outpatient service for any post hospital discharge needs please contact the hospital for assistance. If you have any questions for the [facility] physicians or need to reconsult for clinical or diagnostic changes please contact us via [facility] at . Non-radiologist review of imaging performed to assist with emergent clinical decision-making. Remote physician workstations do not possess the same resolution, calibration, or diagnostic capabilities as hospital-based radiology reading stations, and formal radiologist read is necessary. Signature :Leela Cantu
--- NOTE | 2025-06-26 02:54 | PD.EDADDENDU ---
Emergency Room Addendum Addendum Narrative: Patient was complaining of some left mid arm pain. No chest pain. No headache. Patient will be given morphine 4 mg IV for his left upper arm pain status post TNK.
[2025-06-26] MEDS: MORPHINE SULF INJ 4 MG/ML VIAL IVP (03:10)
[2025-06-26 03:30] LABS: Collection Type, Urine Voided
--- NOTE | 2025-06-26 03:34 | PRELIM_ITS ---
CT angiogram of the neck vessels June 26, 2025 at 0210 hours Clinical History: Focal neuro deficit, stroke suspected Technique: Helical axial sections of the neck were obtained with intravenous contrast in angiogram protocol. Iterative reconstruction technique was employed to reduce patient radiation exposure. Coronal and sagittal MIPS were reviewed. Findings: The aortic arch to the extent visualized, as well as the origins of the right brachiocephalic, left common carotid, and left subclavian arteries, are patent. The common carotid arteries, carotid bulbs, and internal and external carotid arteries are patent. The origins of the vertebral arteries are unremarkable. No evidence of vascular occlusion, significant stenosis, dissection, or aneurysm. IMPRESSION: No evidence of vascular occlusion, significant stenosis, dissection, or aneurysm. Brain CT angiogram with intravenous contrast axial images with sagittal and coronal reconstructions. MIPS were reviewed. Findings: The distal vertebral arteries, basilar, internal carotid arteries, bilateral anterior, middle, and posterior cerebral arteries are unremarkable. No aneurysm or hemodynamically significant stenosis is seen. Vertebral arteries are codominant. The posterior communicating arteries are unremarkable to the extent visualized. Impression: Normal brain CT angiogram. Report Electronically Signed By: Bin Swenson 06/26/2025 3:33:49 AM [EST]
--- NOTE | 2025-06-26 03:37 | ECHO_ITS ---
Patient Info Name: Moises Randle Age: 79 years : 1945 Gender: Male Ht: 173 cm Wt: 93 kg BSA: 2.15 m2 BP: 122 / 71 mmHg HR: 108 bpm Exam Date: 06/27/2025 7:06 AM Admit Date: 06/26/2025 Site: [facility] Room Number: [id number] Patient Status: I Technical Quality: Fair Exam Type: CA echo doppler complete Parachute Marker: Yesenia Valderrama Ordering Physician: Henok Sorto Study Info Indications r/o stroke - Contrast/Agitated Saline Contrast/Ag. Saline: Agitated Saline Amount: --- ml Primary Location: [id number] Left Ventricular Outflow Tract Name Value Normal LVOT 2D LVOT Diameter 2.0 cm LVOT Doppler LVOT Peak Velocity 88 cm/s LVOT Mean Gradient 2 mmHg LVOT VTI 14 cm LVOT VTI/AV VTI Ratio 0.7 LVOT Stroke Volume 45 ml Pulmonic Valve Name Value Normal PV Doppler PV Peak Velocity 94 cm/s Mitral Valve Name Value Normal MV Doppler MV Mean Gradient 1 mmHg MV Decel [place] 816 cm/s2 MV PHT 28 ms MV Area (PHT) 8.0 cm2 4.0-5.0 MV Area (Cont Eq VTI) 2.4 cm2 MV Diastolic Function MV E Peak Velocity 78 cm/s MV A Peak Velocity 39 cm/s MV E/A 2.0 MV Annular TDI MV Septal e' Velocity 12.7 cm/s MV E/e' (Septal) 6.1 MV Lateral e' Velocity 7.6 cm/s MV E/e' (Lateral) 10.2 MV e' Average 10.16 cm/s MV E/e' (Average) 8.1 Tricuspid Valve Name Value Normal TV Regurgitation Doppler TR Peak Velocity 104 cm/s Estimated PAP/RSVP RA Pressure 3 mmHg <=5 PA Systolic Pressure 7 mmHg <36 RV Systolic Pressure 7 mmHg <36 TV Annular TDI TV Lateral Maryjane s' Velocity 21.9 cm/s >=9.5 Aortic Valve Name Value Normal AV 2D/MM AV Cusp Sep (MM) 2.1 cm AV Doppler AV Peak Velocity 154 cm/s AV Mean Gradient 5 mmHg AV VTI 22 cm AV Area (Cont Eq VTI) 2.1 cm2 >=3.0 AV Area (Cont Eq Bennett) 1.8 cm2 AV DI (Bennett) 0.57 AV Regurgitation 2D LVOT Area 3.1 cm2 Ventricles Name Value Normal LV Dimensions 2D/MM IVS Diastolic Thickness (2D) 1.0 cm 0.6-1.0 LVID Diastole (2D) 5.7 cm 4.2-5.8 LVIW Diastolic Thickness (2D) 1.1 cm 0.6-1.0 LVID Systole (2D) 4.1 cm 2.5-4.0 LVOT Diameter 2.0 cm LV Mass (2D Cubed) 241.35 g 88.00-224.00 LV Mass Index (2D Cubed) 112 g/m2 49-115 Relative Wall Thickness (2D) 0.39 <=0.42 IVS/LVIW Diastolic Thickness (2D) 0.91 0.00-1.50 LV Fractional Shortening/Ejection Fraction 2D/MM LV Fractional Shortening (2D) 28 % 25-43 LV EF (2D Teichholz) 54 % RV Dimensions 2D/MM TV Lateral Maryjane s' Velocity 21.9 cm/s >=9.5 Atria Name Value Normal LA Dimensions LA Volume (4C A-L) 31 ml Left Ventricle Left ventricular chamber dimension is normal. Left ventricular systolic function is moderately reduced with visually estimated ejection fraction of 50-55%. There is normal geometry noted in the left ventricle. Left ventricular segmental wall motion is normal. There is grade I diastolic dysfunction in the left ventricle. Right Ventricle Right ventricular chamber dimension is normal. Right ventricular systolic function is normal. Left Atrium Left atrial chamber dimension is normal. Right Atrium Right atrial chamber dimension is normal. Aortic Valve The aortic valve is trileaflet. There is no aortic valve sclerosis. There is no aortic valve stenosis with a peak velocity of 154 cm/s, mean gradient of 5 mmHg, and aortic valve area of 2.1 cm2. There is trace aortic valve regurgitation. Pulmonic Valve The pulmonic valve is normal. There is no pulmonic valve stenosis. There is no pulmonic regurgitation. Mitral Valve The mitral valve has a calcified annulus. There is no mitral valve stenosis. There is trace mitral valve regurgitation. Tricuspid Valve The tricuspid valve leaflets are normal. There is no tricuspid valve stenosis. There is trace tricuspid valve regurgitation. No pulmonary hypertension, estimated pulmonary arterial systolic pressure is 7 mmHg and systemic blood pressure of 122 mmHg in systole. Pericardium/Pleural The pericardium appears normal. There is trivial pericardial effusion with no tamponade. No pleural effusion visualized. Inferior Vena Cava Normal inferior vena cava with >50% collapse upon inspiration consistent with normal right atrial pressure, 3 mmHg. Aorta The aortic measurements are indexed to age and body surface area. The aortic root at the sinus of Valsalva is not well visualized. The prox ascending aorta is not well visualized. Summary 1. Left ventricle size is normal and systolic function is moderately reduced. Estimated ejection fraction is 50-55%. There is grade I diastolic dysfunction. 2. Right ventricle chamber size is normal and systolic function is normal. Estimated RVSP is 7 mmHg. 3. Trace MR, TR, AI. 4. The left atrium is normal. The right atrium is normal. 5. Normal IVC with estimated RA pressure 3 mmHg. 6. No evidence of PFO. Negative bubble study. 7. Prior study from 11/26/2023. Report Signatures Finalized by Henok Sorto on 06/27/2025 05:50 PM
--- NOTE | 2025-06-26 03:45 | ESHP_ITS ---
<Statement entered by Chai Pedraza DO - 06/26/25 06:23> Patient was seen and examined by me. After the review of the clinical data, I agree that the patient will need an admission on inpatient status for left sided weakness s/p thrombolytics in the ED by neurology requiring monitoring over the next 24 hours in the ICU Plan of care discussed with patient who is in agreement. I Chai Pedraza DO, attest that I was physically present for springer portions of evaluation, examined the patient, reviewed the labs and imaging, and discussed the plan of care and management with the IM residents team. I agree with the findings and plans documented above. Documentation for date of: 06/26/25 HPI History of Present Illness Chief complaint: Left sided weakness History of present illness: Mr. Randle is a 79-year-old male with past medical history significant for recent coronary artery stent placed in March currently on aspirin and Plavix, shingles, diabetes mellitus, hypertension, BPH, thyroidectomy who presented to the ED with new onset left-sided upper and lower extremity weakness. Patient states that he woke up around 1 AM to use the restroom, after getting up, patient had some difficulty maneuvering to his bedroom. Per patient's , patient was not able to use his left arm or left leg to pull himself to the bed, and found himself falling towards the ground, due to significant weakness, and she provided assistance. However during this assisted ground-level fall, patient denied any loss of consciousness, hitting his head, chest pain, dizziness, shortness of breath. ED course: Patient presented with blood pressure 122/67, heart rate 104, afebrile, on room air. Per neuroexam in ED, patient noticed to have 3 out of 5 muscle strength at left shoulder, 4/5 muscle strength of left elbow and wrist. However left lower extremity as well as right extremities 5 out of 5 muscle strength. Patient was evaluated by teleneurologist, and NIH stroke scale found to be of 3, and administered TNK with patient permission after understanding the risks and benefits of medication. TNK was given at 2:24 AM on 06/26/2025. In addition to TNK, patient was given morphine 4 mg IV x 1, Tylenol 650 mg p.o. Q4 due to severe left upper arm pain. Head CT was negative for any acute hemorrhage and CT head negative for any large vessel occlusion. Patient will be admitted to ICU for further monitoring status post TNK administration. Upon examination, patient appears to have severe left arm pain, that has worsened over the last year. Patient states that he noticed pain initially after his shingles 1 year ago, and usually applies a topical cream to help with the pain. Patient has not received 4 mg of morphine in addition to Tylenol, and will give an additional Dilaudid 0.5 mg to help with the pain. Review of Systems Review of Systems Systems Reviewed: All systems reviewed, normal except as documented Past Medical History Past Medical History Comments PMH COMMENT: Past medical history: PCI with PTCA stent placement of ramus intermedius, diabetes mellitus type 2, hypertension, BPH, hypothyroidism, BPH Past surgical history: Umbilical hernia and thyroidectomy Family history: Positive for diabetes in family Social history: Denies any smoking, alcohol, other illicit drug use Meds: Patient takes daily aspirin 81 mg daily, Plavix 75 mg p.o. daily, Lasix 20 mg p.o. daily, atorvastatin 40 mg at night, benazepril 10 mg daily, Jardiance 10 mg, levothyroxine 150 mcg daily, metformin 500 mg twice daily, oxybutynin chloride 5 mg p.o. daily, Flomax 0.4 mg p.o. daily Allergies: Ibuprofen when he gets a rash Exam Vital Signs Temp Pulse Resp BP Pulse Ox O2 Del Method 99.8 F 106 H 17 126/59 L 94 L Room Air 06/26/25 03:44 06/26/25 03:44 06/26/25 03:44 06/26/25 03:44 06/26/25 03:44 06/26/25 03:44 Narrative Exam General Appearance: Pt in no acute distress, appears flushed, conversational. HEENT: NC/AT, no scleral icterus, no conjunctival pallor, MMM Lungs: CTAB, no wheezes or crackles appreciated CVS: RRR, S1/S2 heard, no murmurs or rubs appreciated ABD: Soft, non-tender, non-distended, BS + in all 4 quadrants EXT: no deformity/edema/lesions/cyanosis/clubbing, radial pulses 2+ BL, DP pulses 2 + BL SKIN: Skin exam normal without any rashes. Neuro: A&O x 3. 5/5 in right upper and lower extremity. 5/5 to left lower extremity. 4/5 to forearm and 3/5 to upper arm. Psych: Appropriate mood and affect Results: Labs 06/26/25 02:00 06/26/25 02:00 Labs: Short CBC 06/26/25 Range/Units 02:00 WBC 16.0 H (3.8-10.6) Thou/mm3 Hgb 12.6 L (13.5-16.0) g/dL Hct 37.7 L (41.0-53.0) % Plt Count 144 D (140-440) Thou/mm3 BMP 06/26/25 02:00 Sodium 137 Potassium 4.4 Chloride 104 Carbon Dioxide 21.9 BUN 28 H Creatinine 1.7 H Glucose 199 H Calcium 9.2 Cardiac Enzymes 06/26/25 Range/Units 02:00 Troponin I < 0.020 (0.0-0.045) ng/mL Liver Function 06/26/25 Range/Units 02:00 Total Bilirubin 1.0 (0.3-1.2) mg/dL AST 16 (0-34) U/L ALT < 7 L (10-49) U/L Alkaline Phosphatase 136 H (46-116) U/L Albumin 4.4 (3.4-4.8) gm/dL Quality Measures Quality Measures stroke Suspected type of Stroke: Acute Ischemic (Right-sided) Last known well (date): 06/26/25 Tenecteplase given: within 60 min of arrival Rehab services: PT evaluation ordered and Speech Language Pathology eval ordered VTE Prophylaxis: mechanical Antithrombotic by day 2:: contraindicated (describe) (s/p TNK) Statin ordered: >75 y/o moderate or high intensity dose Anticoagulation ordered for A- fib or flutter (current or hx): contraindicated (s/p TNK) Advance care planning discussed with:: patient Medications Home Medications and Allergies Home Medications ?Medication ?Instructions ?Recorded ?Confirmed ?Type metformin 500 mg tablet 500 mg PO BID #0 tabs 06/26/25 History (Glucophage) Held on 04/05/25. Instructions: Resume on 04/07/25. hold metformin may resume on 04/07 tamsulosin 0.4 mg capsule (Flomax) 0.4 mg PO QDAY ##0 09/03/16 06/26/25 History aspirin 81 mg tablet 81 mg PO QDAY 11/13/2306/26 History benazepril 10 mg tablet (Lotensin) 10 mg PO QDAY 11/1206/26/25 History clopidogrel 75 mg tablet 75 mg PO QDAY 11/13/2306/26 History levothyroxine 150 mcg tablet 150 mcg PO QDAY 11/13/23 06/26/25 History furosemide 20 mg tablet 20 mg PO QAM 04/05/25 History oxybutynin chloride 5 mg tablet 5 mg PO QDAY 04/05/25 06/26/25 History Allergies Allergy/AdvReac Type Severity Reaction Status Date / Time ibuprofen Allergy Intermediate RASH Verified 04/04/25 10:30 Visit Medications Acetaminophen (Acetaminophen 325 Mg Tablet) 650 mg PO Q4HR PRN PRN Reason: PAIN SCALE 1-3 (mild Stop: 07/26/25 03:32 Dextrose (Dextrose 50%-Water Inj 50 Ml Syringe) 25 ml IV Q15MIN PRN PRN Reason: BG 50-70 responsive npo pt Stop: 07/26/25 03:42 Dextrose (Dextrose 50%-Water Inj 50 Ml Syringe) 50 ml IV Q15MIN PRN PRN Reason: BG <50 OR BG <70 & pt unresponsive Stop: 07/26/25 03:42 Nicardipine/Sodium Chloride (Cardene Ivpb) 20 mg in 200 mls @ 50 mls/hr IV .Q4H PRN; Protocol PRN Reason: Per Nicardipine Stroke Protocol Stop: 07/26/25 02:12 Insulin Human Lispro (Insulin Lispro (Admelog) 1 Unit/0.01 Ml Unit) 0 unit SC Q6H PAULINA; Protocol Stop: 07/26/25 03:44 Labetalol HCl (Labetalol Inj 5 Mg/Ml Vial 4 Ml) 10 mg IVP Q15M PRN PRN Reason: hypertension Labetalol HCl (Labetalol Inj 5 Mg/Ml Vial 4 Ml) 10 mg IVP PRNMRX1 PRN PRN Reason: SBP > 185 mmHg and/or DBP > 110 Labetalol HCl (Labetalol Inj 5 Mg/Ml Vial 4 Ml) 10 mg IVP PRNMRX1 PRN PRN Reason: SBP > 180 mmHg or DBP > 105 Ondansetron HCl (Ondansetron Inj 2 Mg/Ml Inj 2 Ml) 4 mg IVP Q4HR PRN PRN Reason: NAUSEA OR VOMITING Stop: 07/26/25 01:58 Discontinued Medications Morphine Sulfate (Morphine Sulf Inj 4 Mg/Ml Vial) 4 mg IVP X1 ONE Stop: 06/26/25 02:54 Last Admin: 06/26/25 03:10 Dose: 4 mg Tenecteplase (Tenecteplase Inj 50 Mg Vial) 23.4 mg 0.25 mg/kg (23.4 mg) IV X1 ONE Stop: 06/26/25 02:23 Last Admin: 06/26/25 02:23 Dose: 23.4 mg Tenecteplase (Tenecteplase Inj 50 Mg Vial) 23.5 mg IV X1 ONE Stop: 06/26/25 02:14 Last Admin: 06/26/25 02:48 Dose: Not Given Assessment & Plan Plan Mr. Randle is a 79-year-old male with past medical history significant for recent coronary artery stent placed in March currently on aspirin and Plavix, shingles, diabetes mellitus, hypertension, BPH, thyroidectomy who presented to the ED with new onset left-sided upper and lower extremity weakness and admitted to ICU for further monitoring status post TNK administration in the setting of possible acute ischemic stroke. NEURO #R/o Stroke #Left-sided upper and lower weakness DDx:TIA vs Complicated migraine vs severe post-neuropathic pain from hx of shingles Dx: -Patient presented with left-sided weakness of arm and leg; and currently experiences some weakness in left arm, but accompanied with severe left arm pain -CT head was negative for acute hemorrhage, mass or midline shift -CTA head and neck was negative for arterial stenosis, arterial occlusion, thrombus, dissection or cerebral aneurysm -Stroke alert was initiated, Teleneurology was consulted -NIHSS score was 3 -Patient administered TNK, LWK <4 with risks and benefits discussed with the patient Rx: -TNK Total Dose 46.9mg -Patient was admitted to ICU for post TNK close monitoring -Neurochecks Q30 min for 6 hours, followed by Q1hr for 16 hours -BP monitoring Q 30 minutes for first 6 hours then Q1hr for next 16 hours after that. -Monitor cardiac and O2 saturation. -Maintain SBP<180 and DBP 105, Nicardipine gtt ordered on standby if needed -Head of bed elevation 30 degree -Bedside swallow evaluation -Speech evaluation -Avoid hyperthermia -Maintain euglycemic state -Avoid antiplatelet agents, anticoagulants including chemical DVT prophylaxis unless absolutely necessary -Avoid nasogastric tube, arterial catheter or central venous catheter for 24 hours unless absolutely necessary, minimize procedures -F/U CT after 24 hours of TNK administration -MRI without contrast for tomorrow -F/u with tele-neurology recommendations CARDIO #Hx of CAD s/p recent PTCA of left ramus intermedius #Hx of HFrEF 30-35% #Hx of HTN #Hx of HLD Patient takes home aspirin, plavix, atorvastatin, Lasix, and benazepril Patient's last echo taken 11/27 showed stage I diastolic dysfunction with estimated EF 35-40% -Currently will hold off on aspirin and plavix for 24 hours s/p TNK placement -Can resume Atorvastatin after patient passes bedside swallow screen and formal speech eval -Ordered Echocardiogram in the setting of possible new stroke PULM no active issues GI/FEN no active issues RENAL #ITZEL Most likely pre-renal in the setting of possible dehydration Baseline Cr is around 1.2 Patient takes Jardiance and Lasix CXR appears to have mild congestion b/l -F/u repeat labs in AM -Will hold off on fluids for now, and have patient start diet and encourage oral intake with fluid restriction after speech eval HEME/ONC ENDO #DM type II Patient is on Jardiance and Metformin Dx: Glucose was 199 Rx: -ISS -Closely monitor glucose level #h/o Hypothyroidism Rx: -Resumed home levothyroxine 150 mg a.m. ID no active issues MSK #Left upper arm pain DDx: pain s/p TNK administration vs severe post-neuropathic pain vs nerve pain vs left arm fracture vs LUE DVT Patient received 4mg Morphine along with Tylenol D-dimer elevated 3000+ -Ordered Dialudid .5mg Q4HR -F/u XR of L shoulder and upper arm -F/u LUE US PSYCH no active issues Health Maintenance: DVT prophylaxis: SCDs GI prophylaxis: None Diet: NPO for now, pending swallow screen Lines: PIV CODE STATUS: Full code Disposition: Admitted to ICU for status post TNK administration in the setting of possible acute ischemic stroke Patient's care and plan discussed with my attending, Dr. Milo Celestin, PGY-3
[2025-06-26 03:46] LABS: Bilirubin,Urine Negative (Negative); Blood,Urine 1+ (Negative); Clarity,Urine Clear (Clear/Hazy); Color,Urine Lt-Yellow (Lt Yel-Yel); Glucose, Urine 4+ (Negative); Ketones,Urine Negative (Negative); Leukocyte Esterase,Urine Positive (Negative); Nitrite,Urine Negative (Negative); PH,Urine 7.5 (5.0-7.0); Protein,Urine 1+ (Neg - Trace); RBC,Urine 20 /hpf (0-3); Squamous Epithelial Cell,Urine 2 /hpf (0-5); Urobilinogen,Urine Negative mg/dL (0.0-1.0); WBC,Urine 195 /hpf (0-5)
[2025-06-26 03:48] LABS: Amphetamine/Methamp Scrn,U Negative (Negative); Barbiturate Screen,Urine Negative (Negative); Benzodiazepines Screen,Urine Negative (Negative); Benzoylecgonine Screen, Ur Negative (Negative); Fentanyl Screen,Urine Negative (Negative); Opiate Screen,Urine Negative (Negative); THC Screen,Urine Negative (Negative)
[2025-06-26 03:49] LABS: Culture Indicated,Urine Yes; Specific Gravity,Urine 1.010 (1.001-1.035)
[2025-06-26] MEDS: ACETAMINOPHEN 325 MG TABLET 650 MG PO ×2 (04:02→11:57)
[2025-06-26] MEDS: INSULIN LISPRO (AdmeLOG) 1 UNIT/0.01 ML UNIT SC ×2 (04:11→11:41)
--- NOTE | 2025-06-26 04:37 | PC.NURSE ---
Patient c/o pain 02/13 to his SHAHEEN, ICU resident informed and ICU charge nurse informed as patient has been admitted to ICU unit, awaiting on bed assignment. Patient's son at the bedside, upset stating that something needs to be done right now as we are not doing anything to help his father's pain. This Nurse informed patient's son that admitting provider has been notified, he responded that it does not seem like we are doing anything to help his father's pain. Patient's son urged this Nurse to do something. This Nurse informed patient's son that admitting provider has been informed and she will re-assess the patient up in the ICU floor. Patient has a bed assigned at this time and patient will be moved to the ICU unit as soon as this Nurse calls report for the patient. End of note.
--- NOTE | 2025-06-26 04:42 | XR_ITS ---
Examination: Humerus 2 views left Technique: Humerus, AP lateral 2 views Date and time of exam: June 26, 2025, 0529 hours INDICATIONS: Patient fell 10 hours ago with injury to the arm, arm pain. FINDINGS: No shoulder fracture or dislocation Shaft of the humerus intact IMPRESSION: No acute fracture
--- NOTE | 2025-06-26 04:42 | XR_ITS ---
EXAMINATION: Left shoulder 2 views TECHNIQUE: 2 AP internal rotation views of the shoulder Date and time: June 26, 2025, 05 hours INDICATIONS: Patient fell 10 hours ago with injury to the shoulder, shoulder pain. FINDINGS: No shoulder fracture or dislocation Clavicle scapula intact IMPRESSION: Limited study with no shoulder fracture or dislocation
[2025-06-26] MEDS: HYDROmorphone INJ 2 MG/ML VIAL 0.5 MG IVP (04:55)
--- NOTE | 2025-06-26 05:27 | XR_ITS ---
Examination: Duplex scan of the upper extremity, unilateral left Date and time of exam: June 26, 2025, 0559 hours INDICATIONS: Onset left arm pain today Technique: Duplex scan of the extremity veins using B-mode/grayscale imaging and Doppler spectral analysis and color flow Attention is directed to internal echogenicity, compression and augmentation involving these veins, color flow assessment, spectral analysis Findings: Major deep venous structures in the extremity demonstrate normal course and caliber. There is no evidence of deep vein thrombosis. Normal color flow and spectral analysis Impression: Negative for DVT..
[2025-06-26 06:23] LABS: D-Dimer 3310 ng/mL (<600)
--- NOTE | 2025-06-26 07:05 | ESPR_ITS ---
<Statement entered by Aníbal Winters MD - 06/26/25 18:00> I have reviewed the note and agree with the resident's assessment & plan with exceptions as below. I have personally reviewed labs, imaging, home meds/prior records, examined the patient, formulated and discussed management plan with the IM team. Patient examined at bedside today. Spoke with patient and family at bedside today. It was noted that patient has been having ongoing leg weakness and pain in LE bilat, and was supposed to have a CT angio of LE bilat planned of 07/04/2025. His charge machine operator is Dr. Sorto. It was also noted that patient is on DAPT as he got PCI in 04/05/2025. Pt was also having more L arm pain located around his bicep and shoulder area, that sounded to be more chronic in nature rather than acute. It was also noted that patient did have a similar episode of weakness and trouble standing up to feet about two years ago in [place]. Is unsure if the patient fell, however it is noted that patient does have areas of hematoma near his left upper extremity. He was given tenecteplase, however low suspicion for stroke at this time. Dr. Celestin, neurology on the case who also agrees that low suspicion for CVA at this time. Will have repeat CT 24 hours since TNK was administered. Will follow-up with brain MRA, echo with bubble study, and will order lumbar MRI for concern for radiculopathy and lower extremity weakness. Patient may also have cervical radiculopathy or a rotator cuff pathology which may be contributing to his left arm pain. Patient is also noted to have history of herpes zoster (shingles) infection, and may have underlying postherpetic neuralgia, however worsening of the symptoms is unlikely. Will add gabapentin 300 mg 3 times daily for neuropathic pain. Would limit narcotics. Will also add Tylenol, and multimodal pain management. Avoiding nephrotoxic agents at this time for patient with ITZEL on CKD. Will add ceftriaxone IV 1 g daily for concern for sterile pyuria. Repeat hematology and chemistry in AM. Will continue with Lipitor 80 mg at bedtime, and consider adding Plavix tomorrow after repeat head CT. Continue with SSI and encourage oral intake. #R/o Stroke, s/p TNK #Left-sided upper and lower weakness #Hx of CAD s/p recent PTCA of left ramus intermedius #Hx of HFrEF 30-35% #Hx of HTN #Hx of HLD #ITZEL on CKD #DM type II #Hx of Hypothyroidism #Left upper arm pain #Sterile pyuria Aníbal Winters, PGY-2 Internal Medicine Documentation for date of: 06/26/25 Subjective Subjective Interval history: Mr. Randle is a 79-year-old male with past medical history significant for recent coronary artery stent placed in March currently on aspirin and Plavix, shingles, diabetes mellitus, hypertension, BPH, thyroidectomy who presented to the ED with new onset left-sided upper and lower extremity weakness. Patient states that he woke up around 1 AM to use the restroom, after getting up, patient had some difficulty maneuvering to his bedroom. Per patient's , patient was not able to use his left arm or left leg to pull himself to the bed, and found himself falling towards the ground, due to significant weakness, and she provided assistance. However during this assisted ground-level fall, patient denied any loss of consciousness, hitting his head, chest pain, dizziness, shortness of breath. 06/26/2022: Patient seen and examined at bedside. He recieved tnk in the ed given suspician for stroke, initial head imaging was negative for any acute findings, patient with shingles in the past, so concern for post herpetic neuralgia of the LUE, treated with lidocaine patches and capsasin creams, started on gabapentin 300 tid. of note on physical exam he has some hematoma noted on his l axilla. likely from near fall. pending repeat head ct at 0200 06/27, monitor for possible bleeding. Exam Vital Signs Temp Pulse Resp BP Pulse Ox O2 Del Method 98.7 F 106 H 24 H 112/56 L 94 L Room Air 06/26/25 05:13 06/26/25 05:00 06/26/25 05:00 06/26/25 05:00 06/26/25 05:00 06/26/25 05:00 Narrative Exam General Appearance: Pt in no acute distress, lethargic but easily arousable, conversational. HEENT: NC/AT, no scleral icterus, no conjunctival pallor, MMM Lungs: CTAB, no wheezes or crackles appreciated CVS: RRR, S1/S2 heard, no murmurs or rubs appreciated ABD: Soft, non-tender, non-distended, BS + EXT: radial pulses 2+ BL, DP pulses 2 + BL SKIN: bruises on the lue/mid flank c/f hematoma Neuro: A&O x 3. 5/5 in right upper and lower extremity. 5/5 to left lower extremity. proximal weakness of the lue Psych: Appropriate mood and affect Objective Labs 06/27/25 12:23 06/27/25 05:34 Labs: Laboratory Results - last 24 hr 06/26/25 06/26/25 06/26/25 02:00 02:46 02:49 WBC 16.0 H RBC 4.32 L Hgb 12.6 L Hct 37.7 L MCV 87 MCH 29.2 MCHC 33.4 RDW Std Deviation 41.8 Plt Count 144 D Neut % (Auto) 92 H Lymph % (Auto) 2 L [place] % (Auto) 5 Eos % (Auto) 0 Baso % (Auto) 0 Neut # (Auto) 14.7 H Lymph # (Auto) 0.4 L [place] # (Auto) 0.8 Eos # (Auto) 0.0 Baso # (Auto) 0.0 Immature Gran # (Auto) 0.08 H Absolute Nucleated RBC 0.00 Immature Gran % 1 H Nucleated RBC % 0 PT 11.6 INR 1.1 APTT 33.0 D-Dimer Sodium 137 Potassium 4.4 Chloride 104 Carbon Dioxide 21.9 Anion Gap 11 BUN 28 H Creatinine 1.7 H Estim Creat Clear Calc Not Performed. eGFR 40 L BUN/Creatinine Ratio 16 Glucose 199 H Calculated Osmolality 285 Calcium 9.2 Corrected Calcium 9.2 Magnesium 1.9 Total Bilirubin 1.0 AST 16 ALT < 7 L Alkaline Phosphatase 136 H Troponin I < 0.020 Total Protein 7.1 Albumin 4.4 Globulin 2.7 Albumin/Globulin Ratio 1.6 Ur Collection Type Voided Urine Color Lt-Yellow Urine Clarity Clear Urine pH 7.5 H Ur Specific [place] 1.010 Urine Protein 1+ A Urine Glucose (UA) 4+ A Urine Ketones Negative Urine Blood 1+ A Urine Nitrite Negative Urine Bilirubin Negative Urine Urobilinogen (Auto) Negative Ur Leukocyte Esterase Positive Urine RBC 20 H Urine WBC 195 H Ur Squamous Epith Cells 2 Urine Bacteria None Ur Culture Indicated? Yes Urine Opiates Screen Negative Urine Fentanyl Screen Negative Ur Barbiturates Screen Negative U Amphetamin/Meth Scrn Negative U Benzodiazepines Scrn Negative U Cocaine Metab Screen Negative U Marijuana (THC) Screen Negative HCG (Qual) Negative 06/26/25 05:38 WBC RBC Hgb Hct MCV MCH MCHC RDW Std Deviation Plt Count Neut % (Auto) Lymph % (Auto) [place] % (Auto) Eos % (Auto) Baso % (Auto) Neut # (Auto) Lymph # (Auto) [place] # (Auto) Eos # (Auto) Baso # (Auto) Immature Gran # (Auto) Absolute Nucleated RBC Immature Gran % Nucleated RBC % PT INR APTT D-Dimer 3310 H Sodium Potassium Chloride Carbon Dioxide Anion Gap BUN Creatinine Estim Creat Clear Calc eGFR BUN/Creatinine Ratio Glucose Calculated Osmolality Calcium Corrected Calcium Magnesium Total Bilirubin AST ALT Alkaline Phosphatase Troponin I Total Protein Albumin Globulin Albumin/Globulin Ratio Ur Collection Type Urine Color Urine Clarity Urine pH Ur Specific [place] Urine Protein Urine Glucose (UA) Urine Ketones Urine Blood Urine Nitrite Urine Bilirubin Urine Urobilinogen (Auto) Ur Leukocyte Esterase Urine RBC Urine WBC Ur Squamous Epith Cells Urine Bacteria Ur Culture Indicated? Urine Opiates Screen Urine Fentanyl Screen Ur Barbiturates Screen U Amphetamin/Meth Scrn U Benzodiazepines Scrn U Cocaine Metab Screen U Marijuana (THC) Screen HCG (Qual) Quality Measures Quality Measures stroke Suspected type of Stroke: Acute Ischemic (Right-sided) Last known well (date): 06/26/25 Tenecteplase given: within 60 min of arrival Rehab services: PT evaluation ordered and Speech Language Pathology eval ordered VTE Prophylaxis: not ordered Antithrombotic by day 2:: not indicated (describe) Statin ordered: >75 y/o moderate or high intensity dose Anticoagulation ordered for A-fib or flutter (current or hx): not indicated Advance care planning discussed with:: patient Assessment & Plan Assessment Current Active Medications: Generic Name Dose Route Start Last Admin Trade Name Freq PRN Reason Stop Dose Admin Acetaminophen 650 mg 06/26/25 03:33 06/26/25 04:02 Acetaminophen 325 Mg Tablet PO 07/26/25 03:32 650 mg Q4HR PRN Administration PAIN SCALE 1-3 (mild Atorvastatin Calcium 40 mg 06/26/25 21:00 Atorvastatin Calcium 20 Mg Tablet PO 07/26/25 20:59 QPM PAULINA Dextrose 25 ml 06/26/25 03:43 Dextrose 50%-Water Inj 50 Ml Syringe IV 07/26/25 03:42 Q15MIN PRN BG 50-70 responsive npo pt Dextrose 50 ml 06/26/25 03:43 Dextrose 50%-Water Inj 50 Ml Syringe IV 07/26/25 03:42 Q15MIN PRN BG <50 OR BG <70 & pt unresponsive Hydromorphone HCl 0.5 mg 06/26/25 04:35 06/26/25 04:55 Hydromorphone Inj 2 Mg/Ml Vial IVP 07/01/25 04:34 0.5 mg Q4HR PRN Administration severe pain 7-10 Nicardipine/Sodium Chloride 20 mg in 200 mls @ 50 mls/hr 06/26/25 02:13 Cardene Ivpb IV 07/26/25 02:12 .Q4H PRN Per Nicardipine Stroke Protocol Protocol 5 MG/HR Insulin Human Lispro 0 unit 06/26/25 03:45 06/26/25 04:11 Insulin Lispro (Admelog) 1 Unit/0.01 Ml Unit SC 07/26/25 03:44 1 unit Q6H PAULINA Administration Protocol Labetalol HCl 10 mg 06/26/25 01:59 Labetalol Inj 5 Mg/Ml Vial 4 Ml IVP Q15M PRN hypertension Labetalol HCl 10 mg 06/26/25 02:13 Labetalol Inj 5 Mg/Ml Vial 4 Ml IVP PRNMRX1 PRN SBP > 185 mmHg and/or DBP > 110 Labetalol HCl 10 mg 06/26/25 02:13 Labetalol Inj 5 Mg/Ml Vial 4 Ml IVP PRNMRX1 PRN SBP > 180 mmHg or DBP > 105 Levothyroxine Sodium 150 mcg 06/26/25 09:00 Levothyroxine Sodium 25 Mcg Tablet PO 07/26/25 08:59 QDAY PAULINA Ondansetron HCl 4 mg 06/26/25 01:59 Ondansetron Inj 2 Mg/Ml Inj 2 Ml IVP 07/26/25 01:58 Q4HR PRN NAUSEA OR VOMITING Oxybutynin Chloride 5 mg 06/26/25 09:00 Oxybutynin Chlor 5 Mg Tablet PO 07/26/25 08:59 QDAY PAULINA Tamsulosin HCl 0.4 mg 06/26/25 09:00 Tamsulosin Hcl 0.4 Mg Capsule PO 07/26/25 08:59 QDAY PAULINA Randle is a 79-year-old male with past medical history significant for recent coronary artery stent placed in March currently on aspirin and Plavix, shingles, diabetes mellitus, hypertension, BPH, thyroidectomy who presented to the ED with new onset left-sided upper and lower extremity weakness and admitted to ICU for further monitoring status post TNK administration in the setting of possible acute ischemic stroke. NEURO #R/o Stroke #Left-sided upper and lower weakness DDx:TIA vs Complicated migraine vs severe post-neuropathic pain from hx of shingles Dx: -Patient presented with left-sided weakness of arm and leg; and currently experiences some weakness in left arm, but accompanied with severe left arm pain -CT head was negative for acute hemorrhage, mass or midline shift -CTA head and neck was negative for arterial stenosis, arterial occlusion, thrombus, dissection or cerebral aneurysm -Stroke alert was initiated, Teleneurology was consulted -NIHSS score was 3 -Patient administered TNK, LWK <4 with risks and benefits discussed with the patient Rx: -TNK Total Dose 46.9mg -Patient was admitted to ICU for post TNK close monitoring -Neurochecks Q30 min for 6 hours, followed by Q1hr for 16 hours -BP monitoring Q 30 minutes for first 6 hours then Q1hr for next 16 hours after that. -Monitor cardiac and O2 saturation. Maintain SBP<180 and DBP 105, Nicardipine gtt ordered on standby if needed -Head of bed elevation 30 degree -Bedside swallow evaluation -Speech evaluation -Avoid hyperthermia -Maintain euglycemic state -Avoid antiplatelet agents, anticoagulants including chemical DVT prophylaxis unless absolutely necessary -Avoid nasogastric tube, arterial catheter or central venous catheter for 24 hours unless absolutely necessary, minimize procedures -F/U CT after 24 hours of TNK administration -MRI without contrast for tomorrow -F/u with tele-neurology recommendations, inhouse neuro consulted, low suspician for ischemic stroke. CARDIO #Hx of CAD s/p recent PTCA of left ramus intermedius #Hx of HFrEF 30-35% #Hx of HTN #Hx of HLD Patient takes home aspirin, plavix, atorvastatin, Lasix, and benazepril Patient's last echo taken 11/27 showed stage I diastolic dysfunction with estimated EF 35-40% -Currently will hold off on aspirin and plavix for 24 hours s/p TNK placement -Can resume Atorvastatin after patient passes bedside swallow screen and formal speech eval -Ordered Echocardiogram in the setting of possible new stroke PULM no active issues GI/FEN no active issues ENDO #DM type II Patient is on Jardiance and Metformin Dx: Glucose was 199 Rx: -ISS -Closely monitor glucose level #h/o Hypothyroidism Rx: -Resumed home levothyroxine 150 mg a.m. ID no active issues MSK #Left upper arm pain #?hematoma DDx: pain s/p TNK administration vs severe post-neuropathic pain vs nerve pain vs left arm fracture vs LUE DVT Patient received 4mg Morphine along with Tylenol overnight D-dimer elevated 3000+ , XR L shoulder negative for acute fractures, L humerus xr without fracture or dislocation, dvt us negative Rx: lidocaine patch, cbc qd, ctm for worsening signs of bleeding Chronic LE weakness - pending MRI lumbar, pt eval Skin #Hematoma LUE /L axilla - in setting of tnk given, ctm for worsening signs of subq bleeding, #Post herpetic Neuralgia patient has had shingles 2 years ago, he states that he had flare up on his LUE and L lower abdomen, no signs of active flare on physical exam rx: capsacin cream, lidocaine patch, gabaentin 300 tid, hold for oversedation PSYCH no active issues Health Maintenance: DVT prophylaxis: SCDs GI prophylaxis: None Diet: Cardiac Diet Lines: PIV CODE STATUS: Full code Disposition: Admitted to ICU for status post TNK administration in the setting of possible acute ischemic stroke Case disclosed with my senior resident Dr. Winters and my Attending Dr. Trung Flores MD PGY1 Attending Provider Attestation/Addendum Patient seen and examined with above resident, Pauline Flores MD. I agree with the findings, assessment, and plan of care as documented except for any differences below. Patient presented with lower extremity weakness leading to fall. Patient evaluated in ED by neurology and TNK administered with suspicion for ischemic stroke. Patient significant pain and swelling in the left upper extremity likely due to direct trauma, will exclude presence of underlying fracture. Patient with chronic lower back pain and previous similar episode with bilateral lower extremity weakness that manifested 2 years ago while he was in [place]. Patient without any ascending paralysis or numbness or tingling. Patient with improving mentation. He remains sleepy though appropriate. Will continue to follow protocol post TNK with monitoring and neurochecks. Repeat CT at 24 hours to exclude presence of hemorrhagic conversion, repeat earlier should there be any change in neurologic status. MRI will be done of the brain as well as the lumbar spine to exclude peripheral lesion as etiology given bilateral lower extremity involvement previously and now. Total critical care time: I personally spent 35 minutes for review of physiologic parameters, directing plan of care throughout the day, coordination of care with other subspecialist, and counseling patient and his family at bedside. This is exclusive of time spent teaching of staff or performing any separate billable procedures. Patient remained at significant risk for further morbidity and mortality warranting close monitoring and care only available in ICU. Critical care services required for ischemic stroke status post TNK, hypertension, hyperlipidemia, lower back pain.
--- NOTE | 2025-06-26 07:08 | PC.NURSE ---
Received patient from ER Nurse Natalia at 0630 am, patient is alert and oriented, GCS 15, Vitals are within normal limits, patient is stable and resting comfortably in bed in the lowest locked position, call light is within reach, report of patient given to John WARD at 0650.
[2025-06-26 08:08] LABS: Alanine Aminotransferase < 7 U/L (10-49); Albumin, Serum 4.0 gm/dL (3.4-4.8); Albumin/Globulin Ratio 1.6 (1.2-2.2); Alkaline Phosphatase 122 U/L (46-116); Anion Gap 12 (7-16); Aspartate Amino Transferase 16 U/L (0-34); BUN/Creatinine Ratio 19 Ratio (12-20); Bilirubin,Total 0.8 mg/dL (0.3-1.2); Blood Urea Nitrogen 30 mg/dL (9-23); Calcium 8.6 mg/dL (8.3-10.6); Calcium (Corrected) 8.6 mg/dL (8.5-10.1); Carbon Dioxide 21.6 mMol/L (20.0-31.0); Cardiac Risk Estimate 4.2 RATIO (4.0-6.7); Chloride 104 mMol/L (98-107); Cholesterol 193 mg/dL (132-200); Creatinine (Component) 1.6 mg/dL (0.6-1.3); Globulin 2.5 gm/dL (2.3-3.5); Glucose 174 mg/dL (74-106); HDL Cholesterol 46 mg/dL (40-60); LDL Cholesterol,Calculated 120 mg/dL (0-130); Osmolality,Calculated 285 (275-295); Potassium 4.4 mMol/L (3.4-5.1); Sodium 138 mMol/L (136-145); Total Protein 6.5 gm/dL (5.7-8.2); Triglycerides 133 mg/dL (30-150); eGFR 43 See Note
[2025-06-26] MEDS: OXYBUTYNIN CHLOR 5 MG TABLET PO (09:13)
[2025-06-26] MEDS: LEVOTHYROXINE SODIUM 25 MCG TABLET 150 MCG PO (09:13)
[2025-06-26] MEDS: TAMSULOSIN HCL 0.4 MG CAPSULE PO (09:13)
[2025-06-26 10:58] LABS: Phosphorous 2.5 mg/dL (2.4-5.1); Troponin I 0.022 ng/mL (0.0-0.045)
[2025-06-26] MEDS: LIDOCAINE 5% 1 PATCH TOP (10:58)
[2025-06-26] MEDS: GABAPENTIN 300 MG CAPSULE PO ×3 (11:01→21:23)
[2025-06-26] MEDS: cefTRIAXone/D5w 1gm IV premix 1 GM/50 ML BAG IV (11:01)
--- NOTE | 2025-06-26 12:55 | PC.SS ---
Addendum entered by Daisy Gomez 06/26/25 15:20: CN Ronal informed SS family is requesting a doctor's note to submit to employer. SS met with patient's son Cristofer Randle who requested a letter for employer. Explained to him SS is unable to provide letter for employer, Discharge packet can be used of patient's admission. Cristofer further inquired about DL and it being lost. SS informed him [facility] was contacted and they stated patient's DL was not found nor was patient's information registered in their log. SS to continue supporting family in locating patient's DL. Addendum entered by Daisy Gomez 06/26/25 13:00: Connected with [facility] [phone] and she stated there are no belongings for that patient. Patient does not show in their system either as being a client for today. Patient's son requesting support in locating patient's DL that was not returned by ambulance staff when transported to the hospital. Patient's son unable to recall ambulance color or company. Informed him and patient's daughter Nolvia, SS to contact Dispatch to inquire. Original Note: 79YO Male; Reason for Visit: STROKE SS contacted patient's daughter Nolvia Randle to complete initial assessment and to discuss discharge planning. Role and purpose explained to Nolvia and patient's spouse Hitesh Knight. Nolvia stated she is patient?s primary medical surrogate decisionmaker and can be reached at [phone]. Patient is [place]i speaking. Nolvia confirmed patient?s address on facesheet.?Physical address also provided: [facility] [place] [address]. Nolvia stated patient is independent with ADL completion and uses a cane as needed for ambulation. PHARMACY: [facility] PCP: Dr. Villanueva, last appt. was 06/15/25. STAMP ANALYST: Dr. Sorto. Per Nolvia, patient is requesting to return home when medically clear. Family to provide transportation. DISCHARGE PLAN: HOME NEXT OF KIN: Luigi Randle [phone]
[2025-06-26 13:18] LABS: Glucose Estimated Average 126 mg/dL (80-131); Hemoglobin A1C 6.0 % Hgb (4.8-6.0)
--- NOTE | 2025-06-26 14:09 | ESCONSULT_ITS ---
RE: JAIDEN TRAORE : 1945 DATE OF CONSULTATION: 06/26/2025 CONSULTING PHYSICIANS: Hospitalist and seat nailer. REASON FOR CONSULTATION: Evaluation of patient with possible stroke, recent PCI. CHIEF COMPLAINT: Left-sided weakness. HISTORY OF PRESENT ILLNESS: The patient is an 79-year-old male with the past medical history of known hypertension, hypercholesterolemia, diabetes mellitus, hypothyroidism, previous coronary stent placement in LAD, RCA who recently had angina pectoris and underwent stent placement in ramus intermedius on 04/05/2025. He has been doing fairly well until last night around 1 o'clock in the morning, he woke up, went to the bathroom, could not get up, was profoundly weak on the left upper extremity and apparently both lower extremities. Not very clear whether this was a neurologic, but patient felt extremely weak, could not get up. He was also having left shoulder pain as well; he has some rotator cuff issues. Patient had some confusion but no clear speech problems or any other neurologic deficits. Tele-neurology consult obtained, felt that the patient may have right MCA occlusion with symptoms of left-sided weakness. After risk-benefit analysis, patient was given TNKs. Patient has definitely improved according to him. Both lower extremity power is back. Left upper extremity power is still slightly weak, 4/5, but complains of left shoulder pain that limits him from moving his left arm. CT scan was negative for any intracranial bleeding. There was also venous Doppler study negative for DVT. Patient is well known to me, has a history of hypertension, hypercholesterolemia, multiple stents placed, most recently 04/05/2025 ramus intermedius stent placed. His cardiac was stable. He has been on dual antiplatelet drug therapy, aspirin 81 mg daily and clopidogrel 75 mg daily, along with statin 40 mg atorvastatin and benazepril for hypertension and Lasix 40 mg daily. He has also hypothyroidism on levothyroxine and diabetes on metformin and Jardiance. Patient has a normal left ventricular function by echocardiogram examination and also preserved ejection fraction. ALLERGIES: NONE. MEDICATIONS: 1. Aspirin 81 mg daily. 2. Plavix 75 mg daily. 3. Tamsulosin 0.4 mg daily. 4. Metformin 500 mg daily. 5. Levothyroxine 150 mcg daily. 6. Jardiance 10 mg daily. 7. Lasix 20 mg daily. 8. Clopidogrel 75 mg daily. 9. Benazepril 10 mg daily. PAST MEDICAL HISTORY: Hypertension, hypothyroidism, hypercholesterolemia, type 2 diabetes mellitus, metabolic syndrome, and prostate hypertrophy. SOCIAL HISTORY: Patient has multiple stents placed RCA, left anterior descending artery, most recently ramus intermedius. Patient lives with family, does not smoke or drink alcoholic beverages. FAMILY HISTORY: Noncontributory. PHYSICAL EXAMINATION: GENERAL: Male, alert, awake, in no acute distress, comfortable in ICU. VITAL SIGNS: His blood pressure is 108/60, heart rate is 90, respirations 29, temperature 97.4, saturation 94% on room air, blood glucose 200. HEENT: Unremarkable. NECK: Supple. No JVD. Carotid pulses was felt but no bruits. CHEST AND LUNGS: Clear to auscultation. HEART: S1, S2. Regular. S4 gallop heard. ABDOMEN: Thin and soft. EXTREMITIES: No edema. AND RECTAL: Not performed. NEUROLOGIC: Left upper extremity still a slight weakness, but he has also pain in the left shoulder. Left lower extremity bilaterally equal power. LABORATORY DATA: Troponin 0.022. CBC showed hemoglobin is 12.6 and white count 16. Chemistry panel shows creatinine 1.6, BUN is 30. Patient does have mild elevated creatinine baseline. Liver function test normal. Lipid panel showed LDL cholesterol is 120, HDL is 46. IMPRESSION AND ASSESSMENT: 1. Coronary artery disease status post recent multivessel stent placement, most recently 04/05/2025, stable. 2. Left-sided weakness, received TNKs for a possible stroke. 3. Hypercholesterolemia. 4. Type 2 diabetes. 5. Chronic kidney disease. RECOMMENDATION: The patient should be continued on high dose statin therapy. Will follow. Increase the statin dose to 80 mg daily, since LDL cholesterol is high despite taking 40 mg of atorvastatin. And also, recommend presuming unless there is a contraindication from a neurology point of view, I would like to resume at least one antiplatelet drug, Plavix, since it has been nearly 90 days. Monitor the blood pressure closely to avoid any hyper- or hypotension. We will get a cardiac echo or Doppler study to assess the ejection fraction, left ventricular function, and source of any cardiac thrombi. I would like to thank you for referring this patient for cardiovascular evaluation. We will be glad to follow the patient with you. DT: :23:19 TT: 14:07:00 Ref: [id number] - TID: [id number]
[2025-06-26 16:01] LABS: Creatine Kinase 253 U/L (34-171)
[2025-06-26] MEDS: CAPSAICIN CR 60 GM TUBE TOP ×2 (17:37→21:26)
[2025-06-26 17:58] LABS: Hematocrit 32.6 % (41.0-53.0); Hemoglobin 10.7 g/dL (13.5-16.0)
[2025-06-26] MEDS: ATORVASTATIN CALCIUM 20 MG TABLET 80 MG PO (21:23)
--- NOTE | 2025-06-26 22:58 | ESPR_ITS ---
Documentation for date of: 06/26/25 Subjective Subjective Interval history: Patient was seen in ICU today at the bedside with family. C/o left UE and LE pain, restricted ROM, and weakness. No changes noted after the thrombolytics given. Exam - Neurology Vital Signs Temp Pulse Resp BP Pulse Ox O2 Del Method 98.4 F 107 H 13 121/65 96 Room Air 06/26/25 16:00 06/26/25 19:07 06/26/25 19:07 06/26/25 19:07 06/26/25 19:07 06/26/25 19:07 Objective Labs 06/28/25 05:00 06/28/25 05:00 Labs: Laboratory Results - last 24 hr 06/26/25 06/26/25 06/26/25 02:00 02:46 02:49 WBC 16.0 H RBC 4.32 L Hgb 12.6 L Hct 37.7 L MCV 87 MCH 29.2 MCHC 33.4 RDW Std Deviation 41.8 Plt Count 144 D Neut % (Auto) 92 H Lymph % (Auto) 2 L [place] % (Auto) 5 Eos % (Auto) 0 Baso % (Auto) 0 Neut # (Auto) 14.7 H Lymph # (Auto) 0.4 L [place] # (Auto) 0.8 Eos # (Auto) 0.0 Baso # (Auto) 0.0 Immature Gran # (Auto) 0.08 H Absolute Nucleated RBC 0.00 Immature Gran % 1 H Nucleated RBC % 0 PT 11.6 INR 1.1 APTT 33.0 D-Dimer Sodium 137 Potassium 4.4 Chloride 104 Carbon Dioxide 21.9 Anion Gap 11 BUN 28 H Creatinine 1.7 H Estim Creat Clear Calc Not Performed. eGFR 40 L BUN/Creatinine Ratio [address] Glu mg/dL Hemoglobin A1c Calculated Osmolality 285 Calcium 9.2 Corrected Calcium 9.2 Phosphorus Magnesium 1.9 Total Bilirubin 1.0 AST 16 ALT < 7 L Alkaline Phosphatase 136 H Total Creatine Kinase Troponin I < 0.020 Total Protein 7.1 Albumin 4.4 Globulin 2.7 Albumin/Globulin Ratio 1.6 Triglycerides Cholesterol LDL Cholesterol, Calc HDL Cholesterol Cholesterol/HDL Ratio Ur Collection Type Voided Urine Color Lt-Yellow Urine Clarity Clear Urine pH 7.5 H Ur Specific [place] 1.010 Urine Protein 1+ A Urine Glucose (UA) 4+ A Urine Ketones Negative Urine Blood 1+ A Urine Nitrite Negative Urine Bilirubin Negative Urine Urobilinogen (Auto) Negative Ur Leukocyte Esterase Positive Urine RBC 20 H Urine WBC 195 H Ur Squamous Epith Cells 2 Urine Bacteria None Ur Culture Indicated? Yes Urine Opiates Screen Negative Urine Fentanyl Screen Negative Ur Barbiturates Screen Negative U Amphetamin/Meth Scrn Negative U Benzodiazepines Scrn Negative U Cocaine Metab Screen Negative U Marijuana (THC) Screen Negative HCG (Qual) Negative 06/26/25 06/26/25 05:38 17:22 WBC RBC Hgb 10.7 L Hct 32.6 L MCV MCH MCHC RDW Std Deviation Plt Count Neut % (Auto) Lymph % (Auto) [place] % (Auto) Eos % (Auto) Baso % (Auto) Neut # (Auto) Lymph # (Auto) [place] # (Auto) Eos # (Auto) Baso # (Auto) Immature Gran # (Auto) Absolute Nucleated RBC Immature Gran % Nucleated RBC % PT INR APTT D-Dimer 3310 H Sodium 138 Potassium 4.4 Chloride 104 Carbon Dioxide 21.6 Anion Gap 12 BUN 30 H Creatinine 1.6 H Estim Creat Clear Calc Not Performed. eGFR 43 L BUN/Creatinine Ratio 19 [address]ucose [address] Glu mg/dL 126 Hemoglobin A1c 6.0 Calculated Osmolality 285 Calcium 8.6 Corrected Calcium 8.6 Phosphorus 2.5 Magnesium Total Bilirubin 0.8 AST 16 ALT < 7 L Alkaline Phosphatase 122 H Total Creatine Kinase 253 H Troponin I 0.022 Total Protein 6.5 Albumin 4.0 Globulin 2.5 Albumin/Globulin Ratio 1.6 Triglycerides 133 Cholesterol 193 LDL Cholesterol, Calc 120 HDL Cholesterol 46 Cholesterol/HDL Ratio 4.2 Ur Collection Type Urine Color Urine Clarity Urine pH Ur Specific [place] Urine Protein Urine Glucose (UA) Urine Ketones Urine Blood Urine Nitrite Urine Bilirubin Urine Urobilinogen (Auto) Ur Leukocyte Esterase Urine RBC Urine WBC Ur Squamous Epith Cells Urine Bacteria Ur Culture Indicated? Urine Opiates Screen Urine Fentanyl Screen Ur Barbiturates Screen U Amphetamin/Meth Scrn U Benzodiazepines Scrn U Cocaine Metab Screen U Marijuana (THC) Screen HCG (Qual) Assessment & Plan Assessment and plan (1) Ischemic cerebrovascular accident (CVA): Status: Ruled-out Assessment and plan: based on the negative MRI brain and no improvement in the symptoms S/P thrombolytics continue with DAPT. (2) Shoulder pain, left: Status: Acute Additional Assessment & Plan Additional Plan: most likely from rotator cuff tear, fu with MRI to confirm
[2025-06-27] VITALS (19 sets, daily range): BP systolic 101–131; BP diastolic 49–71; PULSE 100–114; RESP 12–95; TEMP 36.8–37.2; O2SAT 92–100; BMI 35.2
--- NOTE | 2025-06-27 | XR_ITS ---
Examinations: MRI Brain without intravenous contrast. MRA brain without intravenous contrast. MRA carotids without intravenous contrast 3-D vascular reconstructions Date and time of exam: 121908/08/2024 at 1:07 p.m. Indication: Left-sided weakness for the last 24 hours rule out Technique: Multiple axial and sagittal images of the brain have been obtained MRA brain carotid images without contrast obtained, including 3-D postprocessing, vascular maximum intensity projection images Findings: Sella turcica is not enlarged. The optic chiasm and infundibular stalk are not remarkable. There is mild increased prominence of the cortical sulci overlying the convexities, and moderate enlargement of the sylvian, all of these findings consistent with mild atrophy. There is also moderate enlargement of the lateral and third ventricles from the same etiology. There are several exceedingly tiny focal hyperintensities involving the periventricular white matter, consistent with extremely minimal microvascular angiopathy No localized enlargement of the medulla or dominik. Fourth ventricle and cerebellar tonsils normal in position. Subacute hemorrhage is not seen. Fourth ventricle is midline. Mass in the cerebellopontine angle region is not evident. 7th and 8th nerve complexes exhibits symmetry. Globes are symmetrical with no retro-orbital mass. Diffusion-weighted images demonstrate there are no abnormalities on these images, there is nothing to suggest an acute stroke anywhere Mass-effect upon the ventricular system is not identified. MRA carotid images the appearance of the carotid arteries and vertebral arteries throughout the cervical region is unremarkable. The intracranial appearance of the anterior and middle and posterior cerebral arteries all appear normal. Impression: 1 there is mild but definite dilatation of the extra-axial space overlying the frontal lobe convexities and anterior temporal lobes and sylvian cistern region consistent with mild atrophy the ventricular system is also moderately dilated. 2. There is no evidence of an acute stroke anywhere 3. There is exceedingly minimal evidence of microvascular angiopathy in the cerebral white matter 4. No abnormalities are seen on the MR angiogram images
--- NOTE | 2025-06-27 | XR_ITS ---
Examination: MRI lumbar spine without contrast Date and time of exam: June 27, 2025, 1359 hours INDICATIONS: Low back pain radiating down both legs beginning 1 week ago Technique: Multiple MRI axial and sagittal sections lumbar spine. Sagittal T2-weighted images, TR 3500, TE 118 T1 weighted transverse sections, TR 688 T8.5, T2-weighted sagittal sections T1 weighted sagittal sections TR 621, TE 30 T2 axial sections, TR 4, 190, TE 84. Findings: Minimal anterolisthesis L4 on L5 No lumbar fracture Heterogeneous marrow signal Diffuse lumbar disc desiccation Mild to moderate diffuse lumbar disc narrowing L5-S1 2 mm central lumbar disc bulge L4-L5 severe overall acquired spinal stenosis, axial image 4, 5 mm central lumbar disc bulge, facet arthropathy and thickening of ligamentum flavum circumferentially narrowing the thecal sac with mild bilateral L4 ganglionic compression L3-L4 moderate overall spinal stenosis, 2 mm central lumbar disc bulge, facet arthropathy and thickening of ligamentum flavum L2-L3 no disc protrusion L1-L2 no disc protrusion IMPRESSION: Heterogeneous marrow signal involving all lumbar vertebral bodies, recommend this patient return for MRI lumbar spine postcontrast to exclude osseous metastatic disease L4-L5 severe overall spinal stenosis, including mild bilateral L4 ganglionic compression
--- NOTE | 2025-06-27 02:00 | XR_ITS ---
Examination: CT brain head without contrast. 2-D sagittal coronal reconstructions Date and time of exam: June 27, 2025, 0308 hours Stroke alert June 26, 2025, onset left-sided arm weakness, 24-hour post anticoagulation CTDI: vol (mGy): 53.7 DLP: (mGycm): 1087 Technique: Multiple CT axial sections of the brain have been obtained, 5 mm slice thickness. Contrast has not been administered. 2-D sagittal, coronal reconstructions have been obtained Low dose protocols were performed. One or more of the following dose reduction techniques were used; automated exposure control, adjustment of the mA and/or KV according to patient size, use of iterative reconstruction technique. Findings: No significant ventricular enlargement. Intra-axial or extra-axial hemorrhage density is not seen. No mass effect or midline shift Basal cisterns are not remarkable. Fourth ventricle is midline. Cranial vault intact. Impression: Negative for acute hemorrhage, mass effect or midline shift
[2025-06-27] MEDS: GABAPENTIN 300 MG CAPSULE PO (05:37)
[2025-06-27] MEDS: CAPSAICIN CR 60 GM TUBE TOP ×3 (05:37→22:00)
[2025-06-27 06:30] LABS: Albumin, Serum 3.6 gm/dL (3.4-4.8); Anion Gap 12 (7-16); BUN/Creatinine Ratio 24 Ratio (12-20); Blood Urea Nitrogen 43 mg/dL (9-23); Calcium 8.6 mg/dL (8.3-10.6); Calcium (Corrected) 8.9 mg/dL (8.5-10.1); Carbon Dioxide 22.6 mMol/L (20.0-31.0); Chloride 98 mMol/L (98-107); Creatinine (Component) 1.8 mg/dL (0.6-1.3); Estimated Creatinine Clearance 36.1 mL/min (>60); Glucose 159 mg/dL (74-106); INR 1.0 (0.9-1.3); Magnesium 2.2 mg/dL (1.6-2.6); Osmolality,Calculated 280 (275-295); Partial Thromboplastin Time 35.2 Seconds (22.0-36.0); Phosphorous 3.3 mg/dL (2.4-5.1); Potassium 4.0 mMol/L (3.4-5.1); Prothrombin Time 10.9 Seconds (9.0-12.2); Sodium 133 mMol/L (136-145); eGFR 38 See Note
[2025-06-27 06:31] LABS: Basophils # (Auto) 0.0 Thou/mm3 (0.0-0.2); Basophils % (Auto) 0 % (0-2.5); Eosinophils # (Auto) 0.0 Thou/mm3 (0.0-0.5); Eosinophils % (Auto) 0 % (0-10); Hematocrit 28.2 % (41.0-53.0); Hemoglobin 9.3 g/dL (13.5-16.0); Immature Granulocytes Auto 0.09 Thou/mm3 (0.00-0.00); Lymphocytes # (Auto) 0.7 Thou/mm3 (1.0-4.8); Lymphocytes % (Auto) 4 % (10-50); Mean Corpuscular HGB Conc 33.0 g/dl (31.0-37.0); Mean Corpuscular Hemoglobin 29.2 pg (25.0-35.0); Mean Corpuscular Volume 89 fL (80-100); Monocytes # (Auto) 1.1 Thou/mm3 (0.0-0.8); Monocytes % (Auto) 6 % (0-12); Neutrophils # (Auto) 16.1 Thou/mm3 (1.8-7.7); Neutrophils % (Auto) 89 % (37-80); Nucleated Red Blood Cell # 0.00 Thou/mm3 (0.00-0.00); Nucleated Red Blood Cell % 0 /100 WBC (0); Platelet Count 153 Thou/mm3 (140-440); RDW Standard Deviation 42.5 fL (35.1-43.9); Red Blood Count 3.18 Miln/mm3 (4.50-5.90); White Blood Count 18.0 Thou/mm3 (3.8-10.6)
--- NOTE | 2025-06-27 07:42 | PD.TNEUROPRO ---
Tele Neuro Progress Note Progress Note Date 06/27/25 Most Recent Vital Signs Last Vital Signs Temp 98.7 F 06/27/25 00:00 Pulse 108 H 06/27/25 07:14 Resp 18 06/27/25 07:14 BP 108/54 L 06/27/25 06:00 Pulse Ox 98 06/27/25 06:00 O2 Del Method Room Air 06/26/25 19:07 Laboratory-Coagulation Panel PT 10.9 Seconds (9.0-12.2) 06/27/25 05:34 INR 1.0 (0.9-1.3) 06/27/25 05:34 APTT 35.2 Seconds (22.0-36.0) 06/27/25 05:34 D-Dimer 3310 ng/mL (<600) H 06/26/25 05:38 Progress Note Narrative entered in error
--- NOTE | 2025-06-27 08:10 | ESPR_ITS ---
Tele Neuro Progress Note Progress Note Date 06/27/25 Most Recent Vital Signs Last Vital Signs Temp 98.7 F 06/27/25 00:00 Pulse 108 H 06/27/25 07:14 Resp 18 06/27/25 07:14 BP 108/54 L 06/27/25 06:00 Pulse Ox 98 06/27/25 06:00 O2 Del Method Room Air 06/26/25 19:07 Laboratory-Coagulation Panel PT 10.9 Seconds (9.0-12.2) 06/27/25 05:34 INR 1.0 (0.9-1.3) 06/27/25 05:34 APTT 35.2 Seconds (22.0-36.0) 06/27/25 05:34 D-Dimer 3310 ng/mL (<600) H 06/26/25 05:38 Progress Note Narrative [facility] TeleNeurology Consult Services Routine Consult Follow-Up Patient Name:???Moises Randle Date of :???1945 Identification Number:??? Date of Service:???06/27/2025 07:34:01 Diagnosis?I63.89 - Cerebrovascular accident (CVA) due to other mechanism ([facility]) Impression 79 yo M with a PMHx of HTN, HLD, DM2, thyroid cancer s/p thyroidectomy, CAD, CHF, presenting to the [place] ED in the setting of sudden onset L sided weakness. In setting of presentation with subtle albeit notable L hemiparesis, principal concern involves an acute ischemic stroke involving the R hemisphere (likely small vessel etiology), and given potentially disabling nature of his L sided weakness, we presented patient with the option of proceeding forward with thrombolytic therapy (specifically Tenecteplase or TNK), in hopes of aiding in the resolution of patient's L sided weakness. TNK was given at 02:24 on 06/26/2025. Plan: Interventions -TNK- Yes, as above -Endovascular - No, as above Imaging -[address] pending -MRI pending -CTA completed -Echo w/ bubble pending Medications: -Antiplatelet/Anticoagulation: Okay to re-start ASA, plavix if CT neg from a neuro standpoint; if + stroke on MRI, would consider switching to ASA, Brilinta -Statin: Lipitor 40 mg QHS; goal LDL<70 -Blood Pressure Goals: Per primary service, Normotension -DVT prophylaxis: per primary service Primary Team: -NIH neuro checks q4h. Call if increase of NIH score by 4, sudden [place] or decreased LOC. Stat CT w/o contrast recommended. -Cardiac Telemetry -CBC/BMP/PT/INR -HbA1c/Lipid panel -Glucose goal < 180 mg/dl -ST/ PT/OT to eval and treat Neurology will follow. Discussed with staff. Our recommendations are outlined below Diagnostic Studies : MRI head without contrastHolter/Loop Recorder as outpatient with cardiology follow up Antithrombotic Medication : Aspirin 81 mg PO dailyClopidogrel 75 mg dailyStatins for LDL goal less than 70 Nursing Recommendations : IV Fluids, avoid dextrose containing fluids, Maintain euglycemiaNeuro checks q4 hrs x 24 hrs and then per shiftHead of bed 30 degreesContinue with Telemetry Consultations : Recommend Speech therapy if failed dysphagia screenPhysical therapy/Occupational therapyInpatient rehab if recommended by physical/occupational therapy DVT Prophylaxis : Choice of Primary Team Disposition : Neurology will followOutpatient Neurology follow up in 3-6 weeks Subjective Patient seen this am. ? Examination 1A: Level of Consciousness - Alert; keenly responsive?+ 0 1B: Ask Month and Age - Both Questions Right?+ 0 1C: Blink Eyes & Squeeze Hands - Performs Both Tasks?+ 0 2: Test Horizontal Extraocular Movements - Normal?+ 0 3: Test Visual Jones - No Visual Loss?+ 0 4: Test Facial Palsy (Use Grimace if Obtunded) - Minor paralysis (flat nasolabial fold, smile asymmetry)?+ 1 5A: Test Left Arm Motor Drift - Drift, but doesn't hit bed?+ 1 5B: Test Right Arm Motor Drift - No Drift for 10 Seconds?+ 0 6A: Test Left Leg Motor Drift - Drift, but doesn't hit bed?+ 1 6B: Test Right Leg Motor Drift - No Drift for 5 Seconds?+ 0 7: Test Limb Ataxia (FNF/Heel-Doss) - No Ataxia?+ 0 8: Test Sensation - Normal; No sensory loss?+ 0 9: Test Language/Aphasia - Normal; No aphasia?+ 0 10: Test Dysarthria - Normal?+ 0 11: Test Extinction/Inattention - No abnormality?+ 0 NIHSS Score:?3 ? This consult was conducted in real time using interactive audio and video technology. Patient was informed of the technology being used for this visit and agreed to proceed. Patient located in hospital and provider located at home/office setting. Telehealth Neurology consultation was provided. I spent minutes providing telehealth care. This includes time spent for face to face visit via telemedicine, review of medical records, imaging studies and discussion of findings with providers, the patient and/or family. Dr Mark Celeste [facility] For Inpatient follow-up with [facility] physician please call [facility] at . As we are not an outpatient service for any post hospital discharge needs please contact the hospital for assistance. If you have any questions for the [facility] physicians or need to reconsult for clinical or diagnostic changes please contact us via [facility] at Signature :Kedar Celeste
--- NOTE | 2025-06-27 08:35 | XR_ITS ---
MRI shoulder, left, without contrast. Date and time: 06/27/2025 at 1:38 p.m. Technique: Multiple axial, sagittal and coronal sections of the shoulder have been obtained. Siemens high-resolution 1.5 [place] MRI scanner is utilized. Axial fat-suppressed sections, TR 2350, TE 18 T2-weighted coronal fat-saturated images, TR 3500, TE 7100 T1-weighted coronal images, TR 500, TE 15 T2-weighted sagittal fat-saturated images, TR 3500, TE 57 T1-weighted sagittal sections, TR 504, TE 13. Findings: There is a huge shoulder joint effusion. The fluid extends from the superior margin of the humeral head, cephalad to immediately beneath the acromion process, indicating that there has been complete chronic tear and atrophy involving the supraspinatus and infraspinatus tendons, with atrophy and retraction of the muscles There is significant motion by the patient throughout this exam markedly diminished in the overall image quality. As best I can tell I believe that the anterior and posterior glenoid labrum are intact as best I can tell the long head of the biceps tendon is located in the bicipital groove in normal location. No other abnormalities are seen. Impression: 1. There is a huge shoulder joint effusion. 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 3. No other definite abnormalities are seen. However there is major patient motion throughout this exam markedly compromising the image quality
[2025-06-27] MEDS: TAMSULOSIN HCL 0.4 MG CAPSULE PO (08:48)
[2025-06-27] MEDS: CLOPIDOGREL BISULFATE 75 MG TABLET PO (08:48)
[2025-06-27] MEDS: LEVOTHYROXINE SODIUM 25 MCG TABLET 150 MCG PO (08:49)
[2025-06-27] MEDS: OXYBUTYNIN CHLOR 5 MG TABLET PO (08:49)
[2025-06-27] MEDS: cefTRIAXone 2 GM in SODIUM CHLORIDE 0.9% (Popper) 50 ML IV (08:54)
[2025-06-27] MEDS: INSULIN LISPRO (AdmeLOG) 1 UNIT/0.01 ML UNIT SC ×4 (08:55→22:00)
--- NOTE | 2025-06-27 09:21 | ESPR_ITS ---
<Statement entered by Aníbal Winters MD - 06/27/25 15:16> I have reviewed the note and agree with the resident's assessment & plan with exceptions as below. I have personally reviewed labs, imaging, home meds/prior records, examined the patient, formulated and discussed management plan with the IM team. Pt examined at bedside today. No acute overnight events. Head CT s/p TNK (24 hours) negative for intracranial hemorrhage. At this time, will resume Plavix as patient is on DAPT for PCI (Performed on 04/[address] Sorto). Pt is having worsening bruising on left upper extremity, low concern for compartment syndrome at this time. There is concern for soft tissue injury or possible rotator cuff pathology, will follow-up with MRI left shoulder. Patient also scheduled to get MRI of brain today, and MRI lumbar spine for tomorrow. At this time, patient can be medically downgraded to hospitalist team on telemetry. Patient's pain is improving with gabapentin, however there is concern for drowsiness and lethargy, will decrease gabapentin to 100 3 times daily from 300 mg. With improvement for pain, patient does likely have neuropathic pain possibly related to postherpetic neuralgia. #Left-sided upper and lower weakness #S/p TNK administration 06/26/25 #Hx of CAD s/p recent PTCA of left ramus intermedius #Hx of HFrEF 30-35% #Hx of HTN #Hx of HLD #DM type II- well controlled #h/o Hypothyroidism #Left upper arm pain #? hematoma #Chronic LE weakness #Hematoma LUE /L axilla/L lateral scapula #Post herpetic Neuralgia #Hx shingles Aníbal Winters, PGY-2 Internal Medicine Documentation for date of: 06/27/25 Subjective Subjective Interval history: Mr. Randle is a 79-year-old male with past medical history significant for recent coronary artery stent placed in March currently on aspirin and Plavix, shingles, diabetes mellitus, hypertension, BPH, thyroidectomy who presented to the ED with new onset left-sided upper and lower extremity weakness. Patient states that he woke up around 1 AM to use the restroom, after getting up, patient had some difficulty maneuvering to his bedroom. Per patient's , patient was not able to use his left arm or left leg to pull himself to the bed, and found himself falling towards the ground, due to significant weakness, and she provided assistance. However during this assisted ground-level fall, patient denied any loss of consciousness, hitting his head, chest pain, dizziness, shortness of breath. 06/26/2025: Patient seen and examined at bedside. He recieved tnk in the ed given suspician for stroke, initial head imaging was negative for any acute findings, patient with shingles in the past, so concern for post herpetic neuralgia of the LUE, treated with lidocaine patches and capsasin creams, started on gabapentin 300 tid. of note on physical exam he has some hematoma noted on his l axilla. likely from near fall. pending repeat head ct at 0200 06/27, monitor for possible bleeding. 06/27/2025: Patient seen and examined at bedside, lethargic but easily arousable, daughter at bedside. decreased dose of gabapentin for post herpetic neuralgia from 300 tid to 100 tid given somonlence on exam. PT evaluated patient to day and recommend home with home health, he was able to raise his LUE with passive range of motion. His pain is well controlled on current regemin, he is pending MR brain, lumbar and L shoulder (given concern for possible rotator cuff tear in setting of fall). Plavix was resumed despite L axillary bruising and c/f hematoma due to recent cardiac stent (03/2025), patient will be downgraded from the ICU to tele today. Exam Vital Signs Temp Pulse Resp BP Pulse Ox O2 Del Method 98.7 F 105 H 24 H 117/61 96 Room Air 06/27/25 00:00 06/27/25 08:00 06/27/25 08:00 06/27/25 08:00 06/27/25 08:00 06/26/25 19:07 Narrative Exam General Appearance: Pt in no acute distress, lethargic but easily arousable, conversational (chilean speaking). HEENT: NC/AT, no scleral icterus, no conjunctival pallor, MMM Lungs: CTAB, no wheezes or crackles appreciated CVS: RRR, S1/S2 heard, no murmurs or rubs appreciated ABD: Soft, non-tender, non-distended, BS + EXT: radial pulses 2+ BL, DP pulses 2 + BL SKIN: bruises on the lue/mid flank c/f hematoma violacious and deep maroon on the lateral scapula Neuro: A&O x 3. 5/5 in right upper and lower extremity. 5/5 to left lower extremity. proximal weakness of the lue, able to flex shoulder with passive range of motion, Psych: Appropriate mood and affect Objective Labs 07/02/25 04:38 07/02/25 04:38 Labs: Laboratory Results - last 24 hr 06/26/25 06/26/25 06/27/25 05:38 17:22 05:34 WBC 18.0 H RBC 3.18 L Hgb 10.7 L 9.3 L Hct 32.6 L 28.2 L MCV 89 MCH 29.2 MCHC 33.0 RDW Std Deviation 42.5 Plt Count 153 Neut % (Auto) 89 H Lymph % (Auto) 4 L [place] % (Auto) 6 Eos % (Auto) 0 Baso % (Auto) 0 Neut # (Auto) 16.1 H Lymph # (Auto) 0.7 L [place] # (Auto) 1.1 H Eos # (Auto) 0.0 Baso # (Auto) 0.0 Immature Gran # (Auto) 0.09 H Absolute Nucleated RBC 0.00 Immature Gran % 1 H Nucleated RBC % 0 PT 10.9 INR 1.0 APTT 35.2 Sodium 133 L Potassium 4.0 Chloride 98 Carbon Dioxide 22.6 Anion Gap 12 BUN 43 H Creatinine 1.8 H Estim Creat Clear Calc 36.1 L eGFR 38 L BUN/Creatinine Ratio 24 H Glucose [address] Glu mg/dL 126 Hemoglobin A1c 6.0 Calculated Osmolality 280 Calcium 8.6 Corrected Calcium 8.9 Phosphorus 2.5 3.3 Magnesium 2.2 Total Creatine Kinase 253 H Troponin I 0.022 Albumin 3.6 Quality Measures Quality Measures stroke Suspected type of Stroke: Acute Ischemic (Right-sided) Last known well (date): 06/26/25 Tenecteplase given: within 60 min of arrival Rehab services: PT evaluation ordered VTE Prophylaxis: pharmaceutical Antithrombotic by day 2:: refused Statin ordered: >75 y/o moderate or high intensity dose (recieved a dose of methyl pred at 125 cc. ) Anticoagulation ordered for A-fib or flutter (current or hx): ordered Advance care planning discussed with:: patient and child Assessment & Plan Assessment Current Active Medications: Generic Name Dose Route Start Last Admin Trade Name Freq PRN Reason Stop Dose Admin Acetaminophen 650 mg 06/26/25 03:33 06/26/25 11:57 Acetaminophen 325 Mg Tablet PO 07/26/25 03:32 650 mg Q4HR PRN Administration PAIN SCALE 1-3 (mild Atorvastatin Calcium 80 mg 06/26/25 21:00 06/26/25 21:23 Atorvastatin Calcium 20 Mg Tablet PO 07/26/25 20:59 80 mg QPM PAULINA Administration Capsaicin 0 gm 06/26/25 09:11 06/27/25 05:37 Capsaicin Cr 60 Gm Tube TOP 07/26/25 07:14 1 appln TID PAULINA Administration Clopidogrel Bisulfate 75 mg 06/27/25 09:00 06/27/25 08:48 Clopidogrel Bisulfate 75 Mg Tablet PO 07/27/25 08:59 75 mg QDAY PAULINA Administration Dextrose 25 ml 06/26/25 03:43 Dextrose 50%-Water Inj 50 Ml Syringe IV 07/26/25 03:42 Q15MIN PRN BG 50-70 responsive npo pt Dextrose 50 ml 06/26/25 03:43 Dextrose 50%-Water Inj 50 Ml Syringe IV 07/26/25 03:42 Q15MIN PRN BG <50 OR BG <70 & pt unresponsive Gabapentin 100 mg 06/27/25 14:00 Gabapentin 100 Mg Capsule PO 07/27/25 13:59 TID PAULINA Hydromorphone HCl 0.5 mg 06/26/25 04:35 06/26/25 04:55 Hydromorphone Inj 2 Mg/Ml Vial IVP 07/01/25 04:34 0.5 mg Q4HR PRN Administration severe pain 7-10 Nicardipine/Sodium Chloride 20 mg in 200 mls @ 50 mls/hr 06/26/25 02:13 Cardene Ivpb IV 07/26/25 02:12 .Q4H PRN Per Nicardipine Stroke Protocol Protocol 5 MG/HR Ceftriaxone Sodium 2 gm/ 50 mls @ 100 mls/hr 06/27/25 07:15 06/27/25 08:54 Sodium Chloride IV 07/02/25 07:14 100 mls/hr QDAY PAULINA Administration Insulin Human Lispro 0 unit 06/27/25 07:30 06/27/25 08:55 Insulin Lispro (Admelog) 1 Unit/0.01 Ml Unit SC 07/27/25 07:29 2 unit ACHS PAULINA Administration Protocol Labetalol HCl 10 mg 06/26/25 01:59 Labetalol Inj 5 Mg/Ml Vial 4 Ml IVP Q15M PRN hypertension Labetalol HCl 10 mg 06/26/25 02:13 Labetalol Inj 5 Mg/Ml Vial 4 Ml IVP PRNMRX1 PRN SBP > 185 mmHg and/or DBP > 110 Labetalol HCl 10 mg 06/26/25 02:13 Labetalol Inj 5 Mg/Ml Vial 4 Ml IVP PRNMRX1 PRN SBP > 180 mmHg or DBP > 105 Levothyroxine Sodium 150 mcg 06/26/25 09:00 06/27/25 08:49 Levothyroxine Sodium 25 Mcg Tablet PO 07/26/25 08:59 150 mcg QDAY PAULINA Administration Lidocaine 1 patch 06/26/25 10:27 06/26/25 10:58 Lidocaine 5% 1 Patch TOP 07/26/25 10:26 1 patch UD PRN Administration PAIN Protocol Ondansetron HCl 4 mg 06/26/25 01:59 Ondansetron Inj 2 Mg/Ml Inj 2 Ml IVP 07/26/25 01:58 Q4HR PRN NAUSEA OR VOMITING Oxybutynin Chloride 5 mg 06/26/25 09:00 06/27/25 08:49 Oxybutynin Chlor 5 Mg Tablet PO 07/26/25 08:59 5 mg QDAY PAULINA Administration Tamsulosin HCl 0.4 mg 06/26/25 09:00 06/27/25 08:48 Tamsulosin Hcl 0.4 Mg Capsule PO 07/26/25 08:59 0.4 mg QDAY PAULINA Administration Angie Randle is a 79-year-old male with past medical history significant for recent coronary artery stent placed in March currently on aspirin and Plavix, shingles, diabetes mellitus, hypertension, BPH, thyroidectomy who presented to the ED with new onset left-sided upper and lower extremity weakness and admitted to ICU for further monitoring status post TNK administration in the setting of possible acute ischemic stroke. NEURO #Left-sided upper and lower weakness S/p TNK administration 06/26/25 DDx:TIA vs Complicated migraine vs severe post-neuropathic pain from hx of shingles Dx: low suspician for stroke, given imaging negative ct head intitial and ct head @24hrs post tnk, MR brain pending read, MR lumbar pending. Rx: In house neurology consulted, appreciate recs, resume home plavix for cardiac stents. CARDIO #Hx of CAD s/p recent PTCA of left ramus intermedius #Hx of HFrEF 30-35% #Hx of HTN #Hx of HLD Patient takes home aspirin, plavix, atorvastatin, Lasix, and benazepril Patient's last echo taken 11/27 showed stage I diastolic dysfunction with estimated EF 35-40% -resumed plavix, held asa. -resume Atorvastatin 80 qhs -Ordered Echocardiogram in the setting of possible new stroke, taken pending read - resume other home meds when appropriate PULM no active issues GI/FEN no active issues ENDO #DM type II- well controlled Patient is on Jardiance and Metformin Dx: sugars have been sub 200 for the past 24 hrs. Rx: -ISS -Closely monitor glucose level #h/o Hypothyroidism Rx: home levothyroxine 150 mg a.m. ID no active issues MSK/ #Left upper arm pain #?hematoma DDx: pain s/p TNK administration vs severe post-neuropathic pain vs nerve pain vs left arm fracture vs LUE DVT Patient received 4mg Morphine along with Tylenol overnight D-dimer elevated 3000+ , XR L shoulder negative for acute fractures, L humerus xr without fracture or dislocation, dvt us negative Rx: lidocaine patch, cbc qd, ctm for worsening signs of bleeding Chronic LE weakness - pending MRI lumbar, pt eval Skin #Hematoma LUE /L axilla/L lateral scapula - in setting of tnk given and assisted fall to the groud, ctm for worsening signs of subq bleeding, #Post herpetic Neuralgia Hx shingles patient has had shingles 2 years ago, he states that he had flare up on his LUE and L lower abdomen, no signs of active flare on physical exam, he appears more somnolent, on exam, rx: capsacin cream, lidocaine patch, gabaentin 100 tid, hold for oversedation PSYCH no active issues Health Maintenance: DVT prophylaxis: plavix qshift GI prophylaxis: None Diet: Cardiac Diet Lines: PIV CODE STATUS: Full code Disposition: Admitted to ICU for status post TNK administration in the setting of possible acute ischemic stroke, now downgraded from ICU to telemetry. Case disclosed with my senior resident Dr. Winters and my Attending Dr. Trung Flores MD PGY1 Attending Provider Attestation/Addendum Patient seen and examined with the above resident, Pauline Flores MD. I agree with the findings, assessment, and plan of care as documented except for any differences below. Patient with stroke like weakness but in both lower extremities. Post-TNK. However episode suggestive of lumbar pathology occurred similarly about 2 years ago. Now with traumatic injury to the shoulder, check MRI of this along with brain MRI given he had TNK and hematoma formation could occur as well. No evidence of bleeding on follow up CT. Neurologically improved now. Left arm/ shoulder pain remains due to trauama. Otherwise stable after 24 hours and can go to telemetry to complete workup prior to discharge. Patient and daughter who is primary caregiver both updated on plan of care at the bedside. Total critical care time: I personally spent 35 minutes for review of physiologic parameters, directing plan of care, coordination of care with other specialists, and counseling patient and family at bedside. This is exclusive of time spent teaching housestaff or performing any separate billable procedures. The patient remained at significant risk for further morbidity and mortality warranting close monitoring and care only available in the ICU. Critical care services for ischemic stroke s/p TNK, left shoulder trauma/ hematoma, CAD on DAPT.
--- NOTE | 2025-06-27 09:32 | CHAP ---
Patient expressed gratitude for visit and prayer.
[2025-06-27] MEDS: LIDOCAINE 5% 1 PATCH TOP (10:41)
[2025-06-27 13:04] LABS: Hematocrit 26.6 % (41.0-53.0); Hemoglobin 9.1 g/dL (13.5-16.0)
--- NOTE | 2025-06-27 13:43 | ESPR_ITS ---
<Statement entered by Feliciano Salgado MD - 06/27/25 17:57> Patient was seen and examined at the bedside. Patient is downgraded from ICU for stroke status post TNK. Repeat CT head 24 hours s/p TNK was negative for intracranial hemorrhage. Plavix was resumed for DAPT as patient is recently status post PCI on 04/[address] Sorto. Patient was noted to have worsening bruising on left upper extremity possibly secondary to soft tissue injury or possible rotator cuff pathology will follow-up with MRI left shoulder. Currently pending on MRI brain as well. Will follow-up with results. Gabapentin was decreased to 100 mg for postherpetic neuralgia. I discussed and supervised with the grad intern physician who took care of this patient. I personally saw and examined the patient. I agree with most of the assessment and plan. Disclaimer: Despite multiple revisions, due to the dictation software being used, the document bellow may not be free of grammatical errors including phonetic/typographic errors. However, this does not deter from our commitment to providing health care in the patient's best interest in mind. Plan of care discussed with attending Physician Dr. Trevin Salgado MD PGY-3 Documentation for date of: 06/27/25 Subjective Subjective Interval history: 06/27 ICU downgrade 24 hours s/p TNK. Patient was examined at bedside; they appear A&Ox3 and in NAD. Vitals/labs today significant for WBC 18.0, sodium 133, BUN 43, creatinine 1.8. Physical exam was non-contributory. Repeat head CT 24 hours s/p TNK was negative for intracranial hemorrhage. Plavix has been resumed for DAPT as patient is recently s/p PCI on 04/[address] Sorto. Patient is having worsening bruising on left upper extremity; however, there is low concern for compartment syndrome at this time. There is concern for soft tissue injury or possible rotator cuff pathology, will follow-up with MRI left shoulder. Patient also scheduled to get MRI of brain today, and MRI lumbar spine for tomorrow. Patient's pain is improving with gabapentin, however there is concern for drowsiness and lethargy, will decrease gabapentin to 100 mg TID from 300 mg TID. It is likely that patient has neuropathic pain possibly related to postherpetic neuralgia. Exam Vital Signs Temp Pulse Resp BP Pulse Ox O2 Del Method 98.7 F 114 H 25 H 117/61 96 Room Air 06/27/25 00:00 06/27/25 09:00 06/27/25 09:00 06/27/25 08:00 06/27/25 09:00 06/26/25 19:07 Narrative Exam General Appearance: Pt in no acute distress, lethargic but easily arousable, conversational (Vietnamese speaking). HEENT: NC/AT, no scleral icterus, no conjunctival pallor, MMM Lungs: CTAB, no wheezes or crackles appreciated CVS: RRR, S1/S2 heard, no murmurs or rubs appreciated ABD: Soft, non-tender, non-distended, BS + EXT: radial pulses 2+ BL, DP pulses 2 + BL SKIN: bruises on the lue/mid flank c/f hematoma violacious and deep maroon on the lateral scapula Neuro: A&O x 3. 5/5 in right upper and lower extremity. 5/5 to left lower extremity. proximal weakness of the lue, able to flex shoulder with passive range of motion, Psych: Appropriate mood and affect Objective Labs 07/02/25 04:38 07/02/25 04:38 Labs: Laboratory Results - last 24 hr 06/26/25 06/26/25 06/27/25 05:38 17:22 05:34 WBC 18.0 H RBC 3.18 L Hgb 10.7 L 9.3 L Hct 32.6 L 28.2 L MCV 89 MCH 29.2 MCHC 33.0 RDW Std Deviation 42.5 Plt Count 153 Neut % (Auto) 89 H Lymph % (Auto) 4 L [place] % (Auto) 6 Eos % (Auto) 0 Baso % (Auto) 0 Neut # (Auto) 16.1 H Lymph # (Auto) 0.7 L [place] # (Auto) 1.1 H Eos # (Auto) 0.0 Baso # (Auto) 0.0 Immature Gran # (Auto) 0.09 H Absolute Nucleated RBC 0.00 Immature Gran % 1 H Nucleated RBC % 0 PT 10.9 INR 1.0 APTT 35.2 Sodium 133 L Potassium 4.0 Chloride 98 Carbon Dioxide 22.6 Anion Gap 12 BUN 43 H Creatinine 1.8 H Estim Creat Clear Calc 36.1 L eGFR 38 L BUN/Creatinine Ratio 24 H Glucose 159 H Calculated Osmolality 280 Calcium 8.6 Corrected Calcium 8.9 Phosphorus 3.3 Magnesium 2.2 Total Creatine Kinase 253 H Albumin 3.6 06/27/25 12:23 WBC RBC Hgb 9.1 L Hct 26.6 L MCV MCH MCHC RDW Std Deviation Plt Count Neut % (Auto) Lymph % (Auto) [place] % (Auto) Eos % (Auto) Baso % (Auto) Neut # (Auto) Lymph # (Auto) [place] # (Auto) Eos # (Auto) Baso # (Auto) Immature Gran # (Auto) Absolute Nucleated RBC Immature Gran % Nucleated RBC % PT INR APTT Sodium Potassium Chloride Carbon Dioxide Anion Gap BUN Creatinine Estim Creat Clear Calc eGFR BUN/Creatinine Ratio Glucose Calculated Osmolality Calcium Corrected Calcium Phosphorus Magnesium Total Creatine Kinase Albumin Quality Measures Quality Measures stroke Suspected type of Stroke: Acute Ischemic (Right-sided) Last known well (date): 06/26/25 Tenecteplase given: within 60 min of arrival Rehab services: PT evaluation ordered VTE Prophylaxis: pharmaceutical Antithrombotic by day 2:: ordered Statin ordered: >75 y/o moderate or high intensity dose Anticoagulation ordered for A-fib or flutter (current or hx): ordered Advance care planning discussed with:: patient Assessment & Plan Assessment Current Active Medications: Generic Name Dose Route Start Last Admin Trade Name Freq PRN Reason Stop Dose Admin Acetaminophen 650 mg 06/26/25 03:33 06/26/25 11:57 Acetaminophen 325 Mg Tablet PO 07/26/25 03:32 650 mg Q4HR PRN Administration PAIN SCALE 1-3 (mild Atorvastatin Calcium 80 mg 06/26/25 21:00 06/26/25 21:23 Atorvastatin Calcium 20 Mg Tablet PO 07/26/25 20:59 80 mg QPM PAULINA Administration Capsaicin 0 gm 06/26/25 09:11 06/27/25 05:37 Capsaicin Cr 60 Gm Tube TOP 07/26/25 07:14 1 appln TID PAULINA Administration Clopidogrel Bisulfate 75 mg 06/27/25 09:00 06/27/25 08:48 Clopidogrel Bisulfate 75 Mg Tablet PO 07/27/25 08:59 75 mg QDAY PAULINA Administration Dextrose 25 ml 06/26/25 03:43 Dextrose 50%-Water Inj 50 Ml Syringe IV 07/26/25 03:42 Q15MIN PRN BG 50-70 responsive npo pt Dextrose 50 ml 06/26/25 03:43 Dextrose 50%-Water Inj 50 Ml Syringe IV 07/26/25 03:42 Q15MIN PRN BG <50 OR BG <70 & pt unresponsive Gabapentin 100 mg 06/27/25 14:00 Gabapentin 100 Mg Capsule PO 07/27/25 13:59 TID PAULINA Hydromorphone HCl 0.5 mg 06/26/25 04:35 06/26/25 04:55 Hydromorphone Inj 2 Mg/Ml Vial IVP 07/01/25 04:34 0.5 mg Q4HR PRN Administration severe pain 7-10 Nicardipine/Sodium Chloride 20 mg in 200 mls @ 50 mls/hr 06/26/25 02:13 Cardene Ivpb IV 07/26/25 02:12 .Q4H PRN Per Nicardipine Stroke Protocol Protocol 5 MG/HR Ceftriaxone Sodium 2 gm/ 50 mls @ 100 mls/hr 06/27/25 07:15 06/27/25 08:54 Sodium Chloride IV 07/02/25 07:14 100 mls/hr QDAY PAULINA Administration Insulin Human Lispro 0 unit 06/27/25 07:30 06/27/25 11:07 Insulin Lispro (Admelog) 1 Unit/0.01 Ml Unit SC 07/27/25 07:29 2 unit ACHS PAULINA Administration Protocol Labetalol HCl 10 mg 06/26/25 01:59 Labetalol Inj 5 Mg/Ml Vial 4 Ml IVP Q15M PRN hypertension Labetalol HCl 10 mg 06/26/25 02:13 Labetalol Inj 5 Mg/Ml Vial 4 Ml IVP PRNMRX1 PRN SBP > 185 mmHg and/or DBP > 110 Labetalol HCl 10 mg 06/26/25 02:13 Labetalol Inj 5 Mg/Ml Vial 4 Ml IVP PRNMRX1 PRN SBP > 180 mmHg or DBP > 105 Levothyroxine Sodium 150 mcg 06/26/25 09:00 06/27/25 08:49 Levothyroxine Sodium 25 Mcg Tablet PO 07/26/25 08:59 150 mcg QDAY PAULINA Administration Lidocaine 1 patch 06/26/25 10:27 06/27/25 10:41 Lidocaine 5% 1 Patch TOP 07/26/25 10:26 1 patch UD PRN Administration PAIN Protocol Ondansetron HCl 4 mg 06/26/25 01:59 Ondansetron Inj 2 Mg/Ml Inj 2 Ml IVP 07/26/25 01:58 Q4HR PRN NAUSEA OR VOMITING Oxybutynin Chloride 5 mg 06/26/25 09:00 06/27/25 08:49 Oxybutynin Chlor 5 Mg Tablet PO 07/26/25 08:59 5 mg QDAY PAULINA Administration Tamsulosin HCl 0.4 mg 06/26/25 09:00 06/27/25 08:48 Tamsulosin Hcl 0.4 Mg Capsule PO 07/26/25 08:59 0.4 mg QDAY PAULINA Administration Plan Razia is a 79-year-old male with past medical history significant for recent coronary artery stent placed in March currently on aspirin and Plavix, shingles, diabetes mellitus, hypertension, BPH, thyroidectomy who presented to the ED with new onset left-sided upper and lower extremity weakness and admitted to ICU for further monitoring status post TNK administration in the setting of possible acute ischemic stroke. #Left-sided upper and lower weakness S/p TNK administration 06/26/25 DDx: TIA vs Complicated migraine vs severe post-neuropathic pain from hx of shingles Dx: -06/[address] negative -06/26 head/neck CTA negative -06/26 echo negative for PFO -06/27 brain MRI negative for acute stroke but showed mild but definite dilatation of the extra-axial space overlying the frontal lobe convexities and anterior temporal lobes and sylvian cistern region consistent w/ mild atrophy (ventricular system is also moderately dilated) -06/27 lumbar spine MRI w/o contrast showed heterogeneous marrow signal involving all lumbar vertebral bodies concerning for osseous metastatic disease as well as severe overall spinal stenosis of L4-L5 including mild bilateral L4 ganglionic compression -06/[address] 24HR s/p TNK per protocol negative -06/28 lumbar spine MRI w/ contrast planned, showed ___ #Hx of CAD s/p recent PTCA of left ramus intermedius #Hx of HFrEF 30-35% #Hx of HTN #Hx of HLD Patient takes home aspirin, plavix, atorvastatin, Lasix, and benazepril Patient's last echo taken 11/27 showed stage I diastolic dysfunction with estimated EF 35-40% Rx: -resumed plavix, held asa. -resume Atorvastatin 80 qhs -Ordered Echocardiogram in the setting of possible new stroke, taken pending read - resume other home meds when appropriate #DM type II- well controlled Patient is on Jardiance and Metformin Dx: sugars have been sub 200 for the past 24 hrs. Rx: -ISS -Closely monitor glucose level #h/o Hypothyroidism Rx: -Levothyroxine 150 mcg PO QAM MSK #Left upper arm pain #?hematoma DDx: pain s/p TNK administration vs severe post-neuropathic pain vs nerve pain vs left arm fracture vs LUE DVT Patient received 4mg Morphine along with Tylenol overnight D-dimer elevated 3000+ , XR L shoulder negative for acute fractures, L humerus xr without fracture or dislocation, dvt us negative Rx: lidocaine patch, cbc qd, ctm for worsening signs of bleeding Chronic LE weakness - pending MRI lumbar, pt eval #Hematoma LUE /L axilla/L lateral scapula In setting of TNK given and assisted fall to the ground Dx: -Left shoulder MRI ordered, showed ___ #Post herpetic Neuralgia Hx shingles patient has had shingles 2 years ago, he states that he had flare up on his LUE and L lower abdomen, no signs of active flare on physical exam, he appears more somnolent, on exam, Rx: capsacin cream, lidocaine patch, gabapentin 100 tid, hold for oversedation Health Maintenance: DVT prophylaxis: Plavix qshift GI prophylaxis: None Diet: Cardiac Diet Lines: PIV CODE STATUS: Full code Disposition: Admitted to ICU for status post TNK administration in the setting of possible acute ischemic stroke, now downgraded from ICU to telemetry. Case discussed with my senior resident Dr. Salgado and my attending Dr. Luis Zhong, DO PGY-1 Attending Provider Attestation/Addendum I have examined the patient, reviewed labs and imaging findings, discussed the case with the resident(s), and reviewed entered orders. I agree with the plan of care as outlined in this note. Dr. Smith
--- NOTE | 2025-06-27 15:39 | PC.PT ---
Patient is safe to ambulate to the bathroom and in the halls with 1 staff and a FWW. RN made aware.
--- NOTE | 2025-06-27 18:37 | ESPR_ITS ---
<Statement entered by Henok Sorto MD - 06/29/25 09:52> I personally evaluated examined the patient appears to be clinically doing much better not having shortness of or chest pain some shoulder pain weakness improved significantly agree with the treatment plan recommendation resume the dual antiplatelet drug therapy evaluation resident physician PGY [address] Mccallum agree with treatment plan recommendation as documented. Documentation for date of: 06/27/25 Subjective Subjective Interval history: Patient examined at bedside. He was downgraded today. Post TNK repeat CT head was negative for any acute hemorrhage. Patient was able to raise his left arm but limited due to pain. Full strength in LLE. No other residual deficits noted on exam. Telemetry was reviewed patient slightly tachycardic rate 100?105 blood pressure well-controlled. He denies any chest pain, shortness of breath, palpitations. As repeat CT head negative for any hemorrhage will plan to resume aspirin and Plavix starting tomorrow. Exam Vital Signs Temp Pulse Resp BP Pulse Ox O2 Del Method 98.4 F 100 29 H 124/49 L 99 Room Air 06/27/25 12:02 06/27/25 16:00 06/27/25 16:00 06/27/25 16:00 06/27/25 16:00 06/26/25 19:07 Narrative Exam General: Alert and oriented x3. No acute distress, cooperative HEENT: NCAT, No JVD noted. Mucosa moist. Pupils are equal and reactive to light bilaterally Cardiovascular: Normal S1 and S2. Regular rate and rhythm. Respiratory: Lungs are clear to auscultation bilaterally. No wheezing or crackles heard. Abdomen: Soft, nontender, not distended, normal bowel sounds. Skin: bruising on LUE Musculoskeletal: No gross injuries. Able to move all 4 extremities. Weakness in LUE due to pain. 5/5 to left lower extremity. Neuro: Alert and oriented x3. No focal neuro deficits. Psych: Normal affect and mood Objective Labs 06/27/25 12:23 06/27/25 05:34 Labs: Laboratory Results - last 24 hr 06/27/25 06/27/25 05:34 12:23 WBC 18.0 H RBC 3.18 L Hgb 9.3 L 9.1 L Hct 28.2 L 26.6 L MCV 89 MCH 29.2 MCHC 33.0 RDW Std Deviation 42.5 Plt Count 153 Neut % (Auto) 89 H Lymph % (Auto) 4 L [place] % (Auto) 6 Eos % (Auto) 0 Baso % (Auto) 0 Neut # (Auto) 16.1 H Lymph # (Auto) 0.7 L [place] # (Auto) 1.1 H Eos # (Auto) 0.0 Baso # (Auto) 0.0 Immature Gran # (Auto) 0.09 H Absolute Nucleated RBC 0.00 Immature Gran % 1 H Nucleated RBC % 0 PT 10.9 INR 1.0 APTT 35.2 Sodium 133 L Potassium 4.0 Chloride 98 Carbon Dioxide 22.6 Anion Gap 12 BUN 43 H Creatinine 1.8 H Estim Creat Clear Calc 36.1 L eGFR 38 L BUN/Creatinine Ratio 24 H Glucose 159 H Calculated Osmolality 280 Calcium 8.6 Corrected Calcium 8.9 Phosphorus 3.3 Magnesium 2.2 Albumin 3.6 Quality Measures Quality Measures stroke Suspected type of Stroke: Acute Ischemic (Right-sided) Last known well (date): 06/26/25 Tenecteplase given: within 60 min of arrival Rehab services: PT evaluation ordered and Speech Language Pathology eval ordered VTE Prophylaxis: mechanical Antithrombotic by day 2:: not indicated (describe) Statin ordered: <75 y/o high intensity dose Anticoagulation ordered for A-fib or flutter (current or hx): not indicated Advance care planning discussed with:: patient Assessment & Plan Assessment Current Active Medications: Generic Name Dose Route Start Last Admin Trade Name Freq PRN Reason Stop Dose Admin Acetaminophen 650 mg 06/26/25 03:33 06/26/25 11:57 Acetaminophen 325 Mg Tablet PO 07/26/25 03:32 650 mg Q4HR PRN Administration PAIN SCALE 1-3 (mild Atorvastatin Calcium 80 mg 06/26/25 21:00 06/26/25 21:23 Atorvastatin Calcium 20 Mg Tablet PO 07/26/25 20:59 80 mg QPM PAULINA Administration Capsaicin 0 gm 06/26/25 09:11 06/27/25 15:02 Capsaicin Cr 60 Gm Tube TOP 07/26/25 07:14 1 appln TID PAULINA Administration Clopidogrel Bisulfate 75 mg 06/27/25 09:00 06/27/25 08:48 Clopidogrel Bisulfate 75 Mg Tablet PO 07/27/25 08:59 75 mg QDAY PAULINA Administration Dextrose 25 ml 06/26/25 03:43 Dextrose 50%-Water Inj 50 Ml Syringe IV 07/26/25 03:42 Q15MIN PRN BG 50-70 responsive npo pt Dextrose 50 ml 06/26/25 03:43 Dextrose 50%-Water Inj 50 Ml Syringe IV 07/26/25 03:42 Q15MIN PRN BG <50 OR BG <70 & pt unresponsive Gabapentin 100 mg 06/27/25 14:00 06/27/25 14:59 Gabapentin 100 Mg Capsule PO 07/27/25 13:59 Not Given TID PAULINA Hydromorphone HCl 0.5 mg 06/26/25 04:35 06/26/25 04:55 Hydromorphone Inj 2 Mg/Ml Vial IVP 07/01/25 04:34 0.5 mg Q4HR PRN Administration severe pain 7-10 Nicardipine/Sodium Chloride 20 mg in 200 mls @ 50 mls/hr 06/26/25 02:13 Cardene Ivpb IV 07/26/25 02:12 .Q4H PRN Per Nicardipine Stroke Protocol Protocol 5 MG/HR Ceftriaxone Sodium 2 gm/ 50 mls @ 100 mls/hr 06/27/25 07:15 06/27/25 08:54 Sodium Chloride IV 07/02/25 07:14 100 mls/hr QDAY PAULINA Administration Insulin Human Lispro 0 unit 06/27/25 07:30 06/27/25 17:22 Insulin Lispro (Admelog) 1 Unit/0.01 Ml Unit SC 07/27/25 07:29 2 unit ACHS PAULINA Administration Protocol Labetalol HCl 10 mg 06/26/25 01:59 Labetalol Inj 5 Mg/Ml Vial 4 Ml IVP Q15M PRN hypertension Labetalol HCl 10 mg 06/26/25 02:13 Labetalol Inj 5 Mg/Ml Vial 4 Ml IVP PRNMRX1 PRN SBP > 185 mmHg and/or DBP > 110 Labetalol HCl 10 mg 06/26/25 02:13 Labetalol Inj 5 Mg/Ml Vial 4 Ml IVP PRNMRX1 PRN SBP > 180 mmHg or DBP > 105 Levothyroxine Sodium 150 mcg 06/26/25 09:00 06/27/25 08:49 Levothyroxine Sodium 25 Mcg Tablet PO 07/26/25 08:59 150 mcg QDAY PAULINA Administration Lidocaine 1 patch 06/26/25 10:27 06/27/25 10:41 Lidocaine 5% 1 Patch TOP 07/26/25 10:26 1 patch UD PRN Administration PAIN Protocol Ondansetron HCl 4 mg 06/26/25 01:59 Ondansetron Inj 2 Mg/Ml Inj 2 Ml IVP 07/26/25 01:58 Q4HR PRN NAUSEA OR VOMITING Oxybutynin Chloride 5 mg 06/26/25 09:00 06/27/25 08:49 Oxybutynin Chlor 5 Mg Tablet PO 07/26/25 08:59 5 mg QDAY PAULINA Administration Tamsulosin HCl 0.4 mg 06/26/25 09:00 06/27/25 08:48 Tamsulosin Hcl 0.4 Mg Capsule PO 07/26/25 08:59 0.4 mg QDAY PAULINA Administration Plan Razia is a 79-year-old male with past medical history significant for recent coronary artery stent placed in March currently on aspirin and Plavix, shingles, diabetes mellitus, hypertension, BPH, thyroidectomy who presented to the ED with new onset left-sided upper and lower extremity weakness and admitted to ICU for further monitoring status post TNK administration in the setting of possible acute ischemic stroke. #Hx of CAD s/p recent PTCA of left ramus intermedius #Hx of HFrEF 30-35% #Hx of HTN #Hx of HLD Previous coronary stent placement in LAD, RCA who recently had angina pectoris and underwent stent placement in ramus intermedius on 04/05/2025. He has been on dual antiplatelet drug therapy, aspirin 81 mg daily and clopidogrel 75 mg daily, along with statin 40 mg atorvastatin and benazepril for hypertension and Lasix 40 mg daily. Patient's last echo taken 11/27 showed stage I diastolic dysfunction with estimated EF 35-40% Triglycerides 133, cholesterol 193, LDL 120, HDL 46. -As repeat CT head negative for any hemorrhage will plan to resume plavix tonight and asprin starting tomorrow -Atorvastatin 80 qhs - Echocardiogram pending -resume benazepril #Left-sided upper and lower weakness S/p TNK administration 06/26/25 #DM type II- well controlled #Hypothyroidism #Left upper arm pain #Post herpetic Neuralgia Primary care team to manage above conditions and ongoing care needs. The patient's management plan was discussed with my attending physician Dr. Sorto. Cynthia Johnson, PGY-2
[2025-06-27] MEDS: ATORVASTATIN CALCIUM 20 MG TABLET 80 MG PO (22:00)
[2025-06-27] MEDS: GABAPENTIN 100 MG CAPSULE PO (22:26)
[2025-06-28] VITALS (13 sets, daily range): BP systolic 96–133; BP diastolic 53–81; PULSE 10–121; RESP 16–99; TEMP 36.2–37.2; O2SAT 95–100; BMI 35.6
--- NOTE | 2025-06-28 | XR_ITS ---
EXAMINATION: Ultrasound soft tissue extremity left shoulder TECHNIQUE: Ultrasound soft tissue images left shoulder Date and time: June 28, 2025, 1259 hours INDICATIONS: Patient fell 4 days ago with injury to shoulder, shoulder pain. FINDINGS: Fluid collection with internal debris anterior shoulder 6.8 x 1.0 x 4.9 cm Medial left shoulder poorly defined masslike area which may represent muscle or tendon tear 5.1 x 1.2 x 3.6 cm IMPRESSION: Fluid collection amenable to ultrasound-guided aspiration anterior left shoulder, large shoulder joint effusion Please see the MRI report June 27, 2025
--- NOTE | 2025-06-28 00:12 | VVPN_ITS ---
Telemedicine visit statement This visit was conducted with the use of phone was obtained on 06/27/25 Documentation for date of: 06/27/25 Subjective Subjective Interval history: Patient is in ICU. continues to have restricted ROM in the left shoulder with pain in the left UE. Left LE weakness remains unchanged. Virtual exam Vital Signs Temp Pulse Resp BP Pulse Ox O2 Del Method 98.4 F 100 29 H 124/49 L 99 Room Air 06/27/25 12:02 06/27/25 16:00 06/27/25 16:00 06/27/25 16:00 06/27/25 16:00 06/26/25 19:07 Objective Labs 06/28/25 05:00 06/28/25 05:00 Labs: Laboratory Results - last 24 hr 06/27/25 06/27/25 05:34 12:23 WBC 18.0 H RBC 3.18 L Hgb 9.3 L 9.1 L Hct 28.2 L 26.6 L MCV 89 MCH 29.2 MCHC 33.0 RDW Std Deviation 42.5 Plt Count 153 Neut % (Auto) 89 H Lymph % (Auto) 4 L [place] % (Auto) 6 Eos % (Auto) 0 Baso % (Auto) 0 Neut # (Auto) 16.1 H Lymph # (Auto) 0.7 L [place] # (Auto) 1.1 H Eos # (Auto) 0.0 Baso # (Auto) 0.0 Immature Gran # (Auto) 0.09 H Absolute Nucleated RBC 0.00 Immature Gran % 1 H Nucleated RBC % 0 PT 10.9 INR 1.0 APTT 35.2 Sodium 133 L Potassium 4.0 Chloride 98 Carbon Dioxide 22.6 Anion Gap 12 BUN 43 H Creatinine 1.8 H Estim Creat Clear Calc 36.1 L eGFR 38 L BUN/Creatinine Ratio 24 H Glucose 159 H Calculated Osmolality 280 Calcium 8.6 Corrected Calcium 8.9 Phosphorus 3.3 Magnesium 2.2 Albumin 3.6 Assessment & Plan Problem List (1) Ischemic cerebrovascular accident (CVA): Status: Ruled-out Assessment and plan: s/p thrombolytics No changes in the symptoms MRI brain negative for acute infarction. continue with DAPT with statin as he was on it for CAD s/p stent placement recently (2) Lumbar spinal stenosis: Status: Chronic Assessment and plan: continue with conservative measures, might benefit from PT and pain management intervention. FU with contrasted LS MRI as per radiologist jacqueline (3) Shoulder pain, left: Status: Acute Assessment and plan: worsening sec to tear. Would need orthopedic evaluation and management. contonue with GP for now as it is also indicated for PHN. cannot take NSAID because of DAPT.
[2025-06-28] MEDS: GABAPENTIN 100 MG CAPSULE PO ×3 (06:20→22:15)
[2025-06-28] MEDS: CAPSAICIN CR 60 GM TUBE TOP ×3 (06:20→22:35)
[2025-06-28 06:25] LABS: Basophils # (Auto) 0.0 Thou/mm3 (0.0-0.2); Basophils % (Auto) 0 % (0-2.5); Eosinophils # (Auto) 0.1 Thou/mm3 (0.0-0.5); Eosinophils % (Auto) 0 % (0-10); Hematocrit 23.3 % (41.0-53.0); Immature Granulocytes Auto 0.11 Thou/mm3 (0.00-0.00); Lymphocytes # (Auto) 0.8 Thou/mm3 (1.0-4.8); Lymphocytes % (Auto) 5 % (10-50); Mean Corpuscular HGB Conc 34.8 g/dl (31.0-37.0); Mean Corpuscular Hemoglobin 29.9 pg (25.0-35.0); Mean Corpuscular Volume 86 fL (80-100); Monocytes # (Auto) 1.2 Thou/mm3 (0.0-0.8); Monocytes % (Auto) 8 % (0-12); Neutrophils # (Auto) 13.5 Thou/mm3 (1.8-7.7); Neutrophils % (Auto) 86 % (37-80); Nucleated Red Blood Cell # 0.00 Thou/mm3 (0.00-0.00); Nucleated Red Blood Cell % 0 /100 WBC (0); Platelet Count 143 Thou/mm3 (140-440); RDW Standard Deviation 41.5 fL (35.1-43.9); Red Blood Count 2.71 Miln/mm3 (4.50-5.90); White Blood Count 15.7 Thou/mm3 (3.8-10.6)
[2025-06-28 06:31] LABS: Albumin, Serum 3.4 gm/dL (3.4-4.8); Anion Gap 9 (7-16); BUN/Creatinine Ratio 31 Ratio (12-20); Blood Urea Nitrogen 50 mg/dL (9-23); Calcium 8.4 mg/dL (8.3-10.6); Calcium (Corrected) 8.9 mg/dL (8.5-10.1); Carbon Dioxide 24.1 mMol/L (20.0-31.0); Chloride 100 mMol/L (98-107); Creatinine (Component) 1.6 mg/dL (0.6-1.3); Estimated Creatinine Clearance 40.8 mL/min (>60); Glucose 155 mg/dL (74-106); Magnesium 2.4 mg/dL (1.6-2.6); Osmolality,Calculated 282 (275-295); Phosphorous 2.5 mg/dL (2.4-5.1); Potassium 4.1 mMol/L (3.4-5.1); Sodium 133 mMol/L (136-145); eGFR 43 See Note
[2025-06-28 07:31] LABS: Hemoglobin 8.1 g/dL (13.5-16.0)
[2025-06-28] MEDS: TAMSULOSIN HCL 0.4 MG CAPSULE PO (09:22)
[2025-06-28] MEDS: CLOPIDOGREL BISULFATE 75 MG TABLET PO (09:22)
[2025-06-28] MEDS: ASPIRIN EC 81 MG TABEC PO (09:22)
[2025-06-28] MEDS: cefTRIAXone 2 GM in SODIUM CHLORIDE 0.9% (Popper) 50 ML IV (09:22)
[2025-06-28] MEDS: OXYBUTYNIN CHLOR 5 MG TABLET PO (09:22)
[2025-06-28] MEDS: HYDROmorphone INJ 2 MG/ML VIAL 0.5 MG IVP (09:23)
[2025-06-28] MEDS: LEVOTHYROXINE SODIUM 125 MCG, LEVOTHYROXINE SODIUM 25 MCG 150 MCG PO (09:27)
[2025-06-28] MEDS: INSULIN LISPRO (AdmeLOG) 1 UNIT/0.01 ML UNIT SC ×3 (11:47→22:31)
--- NOTE | 2025-06-28 15:17 | PC.SS ---
Rounding Note: Patient is pending MRI of lumbar spine.
[2025-06-28] MEDS: LACTULOSE SYRUP 20 GM/30 ML UDC PO (16:20)
--- NOTE | 2025-06-28 16:22 | ESPR_ITS ---
<Statement entered by Rishi Martinez MD - 07/02/25 12:56> I reviewed above note and agree with findings and plans. I have also personally examined the patient with medicine team and went over assessment and plan with medical team including international coordinator and resident physician. <Statement entered by Feliciano Salgado MD - 06/28/25 18:25> Patient was seen and examined at the bedside. Patient was noted to have swelling of the left shoulder with ecchymosis and bruising and he was complaining of pain. Patient's MRI showed left shoulder effusion therefore we will likely perform IR guided joint fluid removal tomorrow morning. Currently awaiting MRI lumbar spine with contrast due to concern for osseous metastatic lesion on MRI lumbar spine without contrast. Family was updated regarding the plan. Kidney function slightly improved. All labs and orders were reviewed. I discussed and supervised with the international coordinator physician who took care of this patient. I personally saw and examined the patient. I agree with most of the assessment and plan. Disclaimer: Despite multiple revisions, due to the dictation software being used, the document bellow may not be free of grammatical errors including phonetic/typographic errors. However, this does not deter from our commitment to providing health care in the patient's best interest in mind. Plan of care discussed with attending Physician Dr. Trevin Salgado MD PGY-3 Documentation for date of: 06/28/25 Subjective Subjective Interval history: No overnight events. Patient was examined at bedside; they appear A&Ox3 and in NAD. Vitals/labs today significant for WBC 18.0-> 15.7, hemoglobin 9.1->8.1, sodium 133, creatinine 1.8->1.6. Physical exam notable for continued swelling of the left shoulder with ecchymosis and bruising but was otherwise noncontributory. At this time, patient is pending lumbar spine MRI with contrast to rule out osseous metastatic disease suggested by the previous lumbar spine MRI without contrast. Additionally, left shoulder MRI without contrast has returned showing prominent shoulder joint effusion that is concerning for hematoma caused by assisted fall earlier this admission after patient had received TNK. A soft tissue ultrasound of the left shoulder confirmed the presence of fluid in the joint space and interventional radiology has agreed to perform joint aspiration to evacuate the trapped liquid. Exam Vital Signs Temp Pulse Resp BP Pulse Ox O2 Del Method 97.2 F 100 22 H 129/53 L 100 Room Air 06/28/25 04:00 06/28/25 12:01 06/28/25 12:01 06/28/25 12:01 06/28/25 12:01 06/26/25 19:07 Narrative Exam General Appearance: Pt in no acute distress, lethargic but easily arousable, conversational (H[place]ian speaking). HEENT: NC/AT, no scleral icterus, no conjunctival pallor, MMM Lungs: CTAB, no wheezes or crackles appreciated CVS: RRR, S1/S2 heard, no murmurs or rubs appreciated ABD: Soft, non-tender, non-distended, BS + EXT: radial pulses 2+ BL, DP pulses 2 + BL SKIN: bruises on the lue/mid flank c/f hematoma violacious and deep maroon on the lateral scapula Neuro: A&O x 3. 5/5 in right upper and lower extremity. 5/5 to left lower extremity. proximal weakness of the lue, able to flex shoulder with passive range of motion, Psych: Appropriate mood and affect Objective Labs 06/28/25 05:00 06/28/25 05:00 Labs: Laboratory Results - last 24 hr 06/28/25 05:00 WBC 15.7 H RBC 2.71 L Hgb 8.1 L Hct 23.3 L MCV 86 MCH 29.9 MCHC 34.8 RDW Std Deviation 41.5 Plt Count 143 Neut % (Auto) 86 H Lymph % (Auto) 5 L [place] % (Auto) 8 Eos % (Auto) 0 Baso % (Auto) 0 Neut # (Auto) 13.5 H Lymph # (Auto) 0.8 L [place] # (Auto) 1.2 H Eos # (Auto) 0.1 Baso # (Auto) 0.0 Immature Gran # (Auto) 0.11 H Absolute Nucleated RBC 0.00 Immature Gran % 1 H Nucleated RBC % 0 Sodium 133 L Potassium 4.1 Chloride 100 Carbon Dioxide 24.1 Anion Gap 9 BUN 50 H Creatinine 1.6 H Estim Creat Clear Calc 40.8 L eGFR 43 L BUN/Creatinine Ratio 31 H Glucose 155 H Calculated Osmolality 282 Calcium 8.4 Corrected Calcium 8.9 Phosphorus 2.5 Magnesium 2.4 Albumin 3.4 Quality Measures Quality Measures stroke Suspected type of Stroke: Acute Ischemic (Right-sided) Last known well (date): 06/26/25 Tenecteplase given: within 60 min of arrival Rehab services: PT evaluation ordered and Speech Language Pathology eval ordered VTE Prophylaxis: pharmaceutical Antithrombotic by day 2:: ordered Statin ordered: >75 y/o moderate or high intensity dose Anticoagulation ordered for A-fib or flutter (current or hx): ordered Advance care planning discussed with:: patient and child Assessment & Plan Assessment Current Active Medications: Generic Name Dose Route Start Last Admin Trade Name Freq PRN Reason Stop Dose Admin Acetaminophen 650 mg 06/26/25 03:33 06/26/25 11:57 Acetaminophen 325 Mg Tablet PO 07/26/25 03:32 650 mg Q4HR PRN Administration PAIN SCALE 1-3 (mild Aspirin 81 mg 06/28/25 09:00 06/28/25 09:22 Aspirin Ec 81 Mg Tabec PO 07/28/25 08:59 81 mg QDAY PAULINA Administration Atorvastatin Calcium 80 mg 06/26/25 21:00 06/27/25 22:00 Atorvastatin Calcium 20 Mg Tablet PO 07/26/25 20:59 80 mg QPM PAULINA Administration Capsaicin 0 gm 06/26/25 09:11 06/28/25 13:50 Capsaicin Cr 60 Gm Tube TOP 07/26/25 07:14 1 appln TID PAULINA Administration Clopidogrel Bisulfate 75 mg 06/27/25 09:00 06/28/25 09:22 Clopidogrel Bisulfate 75 Mg Tablet PO 07/27/25 08:59 75 mg QDAY PAULINA Administration Dextrose 25 ml 06/26/25 03:43 Dextrose 50%-Water Inj 50 Ml Syringe IV 07/26/25 03:42 Q15MIN PRN BG 50-70 responsive npo pt Dextrose 50 ml 06/26/25 03:43 Dextrose 50%-Water Inj 50 Ml Syringe IV 07/26/25 03:42 Q15MIN PRN BG <50 OR BG <70 & pt unresponsive Gabapentin 100 mg 06/27/25 14:00 06/28/25 13:50 Gabapentin 100 Mg Capsule PO 07/27/25 13:59 100 mg TID PAULINA Administration Hydromorphone HCl 0.5 mg 06/26/25 04:35 06/28/25 09:23 Hydromorphone Inj 2 Mg/Ml Vial IVP 07/01/25 04:34 0.5 mg Q4HR PRN Administration severe pain 7-10 Nicardipine/Sodium Chloride 20 mg in 200 mls @ 50 mls/hr 06/26/25 02:13 Cardene Ivpb IV 07/26/25 02:12 .Q4H PRN Per Nicardipine Stroke Protocol Protocol 5 MG/HR Ceftriaxone Sodium 2 gm/ 50 mls @ 100 mls/hr 06/27/25 07:15 06/28/25 09:22 Sodium Chloride IV 07/02/25 07:14 100 mls/hr QDAY PAULINA Administration Insulin Human Lispro 0 unit 06/28/25 10:02 06/28/25 11:47 Insulin Lispro (Admelog) 1 Unit/0.01 Ml Unit SC 07/27/25 07:29 2 unit ACHS PAULINA Administration Protocol Labetalol HCl 10 mg 06/26/25 01:59 Labetalol Inj 5 Mg/Ml Vial 4 Ml IVP Q15M PRN hypertension Labetalol HCl 10 mg 06/26/25 02:13 Labetalol Inj 5 Mg/Ml Vial 4 Ml IVP PRNMRX1 PRN SBP > 185 mmHg and/or DBP > 110 Labetalol HCl 10 mg 06/26/25 02:13 Labetalol Inj 5 Mg/Ml Vial 4 Ml IVP PRNMRX1 PRN SBP > 180 mmHg or DBP > 105 Lactulose 20 gm 06/28/25 16:00 Lactulose Syrup 20 Gm/30 Ml Udc PO 07/28/25 15:59 TID PAULINA Protocol Levothyroxine Sodium 125 mcg/ 150 mcg 06/28/25 09:15 06/28/25 09:27 Levothyroxine Sodium 25 mcg PO 07/28/25 09:14 150 mcg ACBR PAULINA Administration Lidocaine 1 patch 06/26/25 10:27 06/27/25 10:41 Lidocaine 5% 1 Patch TOP 07/26/25 10:26 1 patch UD PRN Administration PAIN Protocol Ondansetron HCl 4 mg 06/26/25 01:59 Ondansetron Inj 2 Mg/Ml Inj 2 Ml IVP 07/26/25 01:58 Q4HR PRN NAUSEA OR VOMITING Oxybutynin Chloride 5 mg 06/26/25 09:00 06/28/25 09:22 Oxybutynin Chlor 5 Mg Tablet PO 07/26/25 08:59 5 mg QDAY PAULINA Administration Sennosides 1 tab 06/28/25 16:00 Senna Tablet PO 07/28/25 15:59 QDAY PAULINA Protocol Tamsulosin HCl 0.4 mg 06/26/25 09:00 06/28/25 09:22 Tamsulosin Hcl 0.4 Mg Capsule PO 07/26/25 08:59 0.4 mg QDAY PAULINA Administration Angie Randle is a 79-year-old male with past medical history significant for recent coronary artery stent placed in March currently on aspirin and Plavix, shingles, diabetes mellitus, hypertension, BPH, thyroidectomy who presented to the ED with new onset left-sided upper and lower extremity weakness and admitted to ICU for further monitoring status post TNK administration in the setting of possible acute ischemic stroke. #Left-sided upper weakness and chronic lower extremity weakness #s/p TNK administration 06/26/25 DDx: TIA vs Complicated migraine vs severe post-neuropathic pain from hx of shingles Dx: -06/[address] negative -06/26 head/neck CTA negative -06/26 echo negative for PFO -06/27 brain MRI negative for acute stroke but showed mild but definite dilatation of the extra-axial space overlying the frontal lobe convexities and anterior temporal lobes and [place] region consistent w/ mild atrophy (ventricular system is also moderately dilated) -06/27 lumbar spine MRI w/o contrast showed heterogeneous marrow signal involving all lumbar vertebral bodies concerning for osseous metastatic disease as well as severe overall spinal stenosis of L4-L5 including mild bilateral L4 ganglionic compression -06/[address] 24HR s/p TNK per protocol negative -06/28 lumbar spine MRI w/ contrast planned, showed ___ #Hx of CAD s/p recent PTCA of left ramus intermedius #Hx of HFrEF 50-55% #Hx of HTN #Hx of HLD Patient takes home aspirin, plavix, atorvastatin, Lasix, and benazepril Patient's last echo taken 11/27 showed stage I diastolic dysfunction with estimated EF 35-40% Dx: - 06/26/25 echocardiogram ordered, showed EF of 50 to 55% and grade 1 diastolic function dysfunction Rx: -Plavix 75 mg p.o. daily -Atorvastatin 80 mg p.o. nightly #DM type II- well controlled Patient is on Jardiance and Metformin Rx: ? ISS ? Closely monitor glucose level #h/o Hypothyroidism Rx: -Levothyroxine 150 mcg PO QAM #Left upper arm pain #??Hematoma Pertinent labs: D-dimer elevated 3000+ , XR L shoulder negative for acute fractures, L humerus xr without fracture or dislocation, DVT US negative In setting of TNK given and assisted fall to the ground Dx: ? Left shoulder MRI ordered, showed large joint effusion with complete chronic atrophy and degeneration and tear involving the tendons of the supraspinatus and infraspinatus muscles ? Soft tissue ultrasound of the left shoulder ordered, confirmed the presence of fluid in the joint space Rx: ? Interventional radiology consulted, patient is planned for joint aspiration no no #Post herpetic Neuralgia Hx shingles patient has had shingles 2 years ago, he states that he had flare up on his LUE and L lower abdomen, no signs of active flare on physical exam, he appears more somnolent, on exam, Rx: capsaicin cream, lidocaine patch, gabapentin 100 tid, hold for over-sedation Health Maintenance: DVT prophylaxis: Plavix GI prophylaxis: None Diet: Cardiac CODE STATUS: Full Code Disposition: Admitted to ICU for status post TNK administration in the setting of possible acute ischemic stroke, now downgraded from ICU to telemetry. Case discussed with my senior resident Dr. Salgado and my attending Dr. Michelle Zhong, DO PGY-1
--- NOTE | 2025-06-28 18:30 | ESPR_ITS ---
<Statement entered by Henok Sorto MD - 06/29/25 09:52> I personally evaluated and examined the patient telemetry floor on MedSurg floor patient is doing much better now not sure if patient had a stroke but he still has some weakness of both mildly weakness of lower extremities but improved there is a question of possible lesion in the spinal lower back which can be investigated patient is clinically doing much better and left shoulder appears to be painful because of her injury when he fell to rotator cuff. Eval the patient with resident physician treatment plan recommendation discussed agree with treatment plan recommendation will continue to monitor the patient closely. Documentation for date of: 06/28/25 Subjective Subjective Interval history: Patient examined at bedside. He is doing better today but still complains for LUE arm pain, has some bruising. Vitals are stable. Sodium 133, potassium 4.1, creatinine downtrended 1.6. MRI of left shoulder showed chronic atrophy and degeneration and tear involving the tendons of the supraspinatus and infraspinatus muscles with retraction of the muscles. MRI lumbar spine showed heterogeneous marrow signal involving all lumbar vertebral bodies. He will undergo MRI lumbar spine with contrast to exclude metastatic disease. Plan to continue DAPT therapy. Exam Vital Signs Temp Pulse Resp BP Pulse Ox O2 Del Method 97.2 F 107 H 22 H 129/53 L 100 Room Air 06/28/25 04:00 06/28/25 16:00 06/28/25 12:01 06/28/25 12:01 06/28/25 12:01 06/26/25 19:07 Narrative Exam General: Alert and oriented x3. No acute distress, cooperative HEENT: NCAT, No JVD noted. Mucosa moist. Pupils are equal and reactive to light bilaterally Cardiovascular: Normal S1 and S2. Regular rate and rhythm. Respiratory: Lungs are clear to auscultation bilaterally. No wheezing or crackles heard. Abdomen: Soft, nontender, not distended, normal bowel sounds. Skin: bruising on LUE Musculoskeletal: No gross injuries. Able to move all 4 extremities. Weakness in LUE due to pain, in arm sling. 5/5 to left lower extremity. Neuro: Alert and oriented x3. No focal neuro deficits. Psych: Normal affect and mood Objective Labs 06/28/25 05:00 06/28/25 05:00 Labs: Laboratory Results - last 24 hr 06/28/25 05:00 WBC 15.7 H RBC 2.71 L Hgb 8.1 L Hct 23.3 L MCV 86 MCH 29.9 MCHC 34.8 RDW Std Deviation 41.5 Plt Count 143 Neut % (Auto) 86 H Lymph % (Auto) 5 L [place] % (Auto) 8 Eos % (Auto) 0 Baso % (Auto) 0 Neut # (Auto) 13.5 H Lymph # (Auto) 0.8 L [place] # (Auto) 1.2 H Eos # (Auto) 0.1 Baso # (Auto) 0.0 Immature Gran # (Auto) 0.11 H Absolute Nucleated RBC 0.00 Immature Gran % 1 H Nucleated RBC % 0 Sodium 133 L Potassium 4.1 Chloride 100 Carbon Dioxide 24.1 Anion Gap 9 BUN 50 H Creatinine 1.6 H Estim Creat Clear Calc 40.8 L eGFR 43 L BUN/Creatinine Ratio 31 H Glucose 155 H Calculated Osmolality 282 Calcium 8.4 Corrected Calcium 8.9 Phosphorus 2.5 Magnesium 2.4 Albumin 3.4 Quality Measures Quality Measures stroke Suspected type of Stroke: Acute Ischemic (Right-sided) Last known well (date): 06/26/25 Tenecteplase given: within 60 min of arrival Rehab services: PT evaluation ordered and Speech Language Pathology eval ordered VTE Prophylaxis: mechanical Antithrombotic by day 2:: not indicated (describe) Statin ordered: >75 y/o moderate or high intensity dose Anticoagulation ordered for A-fib or flutter (current or hx): not indicated Advance care planning discussed with:: patient Assessment & Plan Assessment Current Active Medications: Generic Name Dose Route Start Last Admin Trade Name Jasonq PRN Reason Stop Dose Admin Acetaminophen 650 mg 06/26/25 03:33 06/26/25 11:57 Acetaminophen 325 Mg Tablet PO 07/26/25 03:32 650 mg Q4HR PRN Administration PAIN SCALE 1-3 (mild Aspirin 81 mg 06/28/25 09:00 06/28/25 09:22 Aspirin Ec 81 Mg Tabec PO 07/28/25 08:59 81 mg QDAY PAULINA Administration Atorvastatin Calcium 80 mg 06/26/25 21:00 06/27/25 22:00 Atorvastatin Calcium 20 Mg Tablet PO 07/26/25 20:59 80 mg QPM PAULINA Administration Capsaicin 0 gm 06/26/25 09:11 06/28/25 13:50 Capsaicin Cr 60 Gm Tube TOP 07/26/25 07:14 1 appln TID PAULINA Administration Clopidogrel Bisulfate 75 mg 06/27/25 09:00 06/28/25 09:22 Clopidogrel Bisulfate 75 Mg Tablet PO 07/27/25 08:59 75 mg QDAY PAULINA Administration Dextrose 25 ml 06/26/25 03:43 Dextrose 50%-Water Inj 50 Ml Syringe IV 07/26/25 03:42 Q15MIN PRN BG 50-70 responsive npo pt Dextrose 50 ml 06/26/25 03:43 Dextrose 50%-Water Inj 50 Ml Syringe IV 07/26/25 03:42 Q15MIN PRN BG <50 OR BG <70 & pt unresponsive Gabapentin 100 mg 06/27/25 14:00 06/28/25 13:50 Gabapentin 100 Mg Capsule PO 07/27/25 13:59 100 mg TID PAULINA Administration Hydromorphone HCl 0.5 mg 06/26/25 04:35 06/28/25 09:23 Hydromorphone Inj 2 Mg/Ml Vial IVP 07/01/25 04:34 0.5 mg Q4HR PRN Administration severe pain 7-10 Nicardipine/Sodium Chloride 20 mg in 200 mls @ 50 mls/hr 06/26/25 02:13 Cardene Ivpb IV 07/26/25 02:12 .Q4H PRN Per Nicardipine Stroke Protocol Protocol 5 MG/HR Ceftriaxone Sodium 2 gm/ 50 mls @ 100 mls/hr 06/27/25 07:15 06/28/25 09:22 Sodium Chloride IV 07/02/25 07:14 100 mls/hr QDAY PAULINA Administration Insulin Human Lispro 0 unit 06/28/25 10:02 06/28/25 16:53 Insulin Lispro (Admelog) 1 Unit/0.01 Ml Unit SC 07/27/25 07:29 2 unit ACHS PAULINA Administration Protocol Labetalol HCl 10 mg 06/26/25 01:59 Labetalol Inj 5 Mg/Ml Vial 4 Ml IVP Q15M PRN hypertension Labetalol HCl 10 mg 06/26/25 02:13 Labetalol Inj 5 Mg/Ml Vial 4 Ml IVP PRNMRX1 PRN SBP > 185 mmHg and/or DBP > 110 Labetalol HCl 10 mg 06/26/25 02:13 Labetalol Inj 5 Mg/Ml Vial 4 Ml IVP PRNMRX1 PRN SBP > 180 mmHg or DBP > 105 Lactulose 20 gm 06/28/25 16:00 06/28/25 16:20 Lactulose Syrup 20 Gm/30 Ml Udc PO 07/28/25 15:59 20 gm TID PAULINA Administration Protocol Levothyroxine Sodium 125 mcg/ 150 mcg 06/28/25 09:15 06/28/25 09:27 Levothyroxine Sodium 25 mcg PO 07/28/25 09:14 150 mcg ACBR PAULINA Administration Lidocaine 1 patch 06/26/25 10:27 06/27/25 10:41 Lidocaine 5% 1 Patch TOP 07/26/25 10:26 1 patch UD PRN Administration PAIN Protocol Ondansetron HCl 4 mg 06/26/25 01:59 Ondansetron Inj 2 Mg/Ml Inj 2 Ml IVP 07/26/25 01:58 Q4HR PRN NAUSEA OR VOMITING Oxybutynin Chloride 5 mg 06/26/25 09:00 06/28/25 09:22 Oxybutynin Chlor 5 Mg Tablet PO 07/26/25 08:59 5 mg QDAY PAULINA Administration Sennosides 1 tab 06/28/25 16:00 06/28/25 16:20 Senna Tablet PO 07/28/25 15:59 1 tab QDAY PAULINA Administration Protocol Tamsulosin HCl 0.4 mg 06/26/25 09:00 06/28/25 09:22 Tamsulosin Hcl 0.4 Mg Capsule PO 07/26/25 08:59 0.4 mg QDAY PAULINA Administration Angie Randle is a 79-year-old male with past medical history significant for recent coronary artery stent placed in March currently on aspirin and Plavix, shingles, diabetes mellitus, hypertension, BPH, thyroidectomy who presented to the ED with new onset left-sided upper and lower extremity weakness and admitted to ICU for further monitoring status post TNK administration in the setting of possible acute ischemic stroke. #Hx of CAD s/p recent PTCA of left ramus intermedius #Hx of HFrEF 30-35% #Hx of HTN #Hx of HLD Previous coronary stent placement in LAD, RCA who recently had angina pectoris and underwent stent placement in ramus intermedius on 04/05/2025. He has been on dual antiplatelet drug therapy, aspirin 81 mg daily and clopidogrel 75 mg daily, along with statin 40 mg atorvastatin and benazepril for hypertension and Lasix 40 mg daily. Patient's last echo taken 11/27 showed stage I diastolic dysfunction with estimated EF 35-40% Triglycerides 133, cholesterol 193, LDL 120, HDL 46. -continue plavix and asprin -Atorvastatin 80 qhs - Echocardiogram pending -resume benazepril -MRI lumbar spine with contrast pending to rule out metastatic disease #Left supraspinatus and infraspinatus tear #Left-sided upper and lower weakness S/p TNK administration 06/26/25 #DM type II- well controlled #Hypothyroidism #Left upper arm pain #Post herpetic Neuralgia Primary care team to manage above conditions and ongoing care needs. The patient's management plan was discussed with my attending physician Dr. Sorto. Cynthia Johnson, PGY-2
--- NOTE | 2025-06-28 21:23 | PD.VPROG1 ---
Telemedicine visit statement This visit was conducted with the use of phone, was obtained on 06/28/25 at 2123. Documentation for date of: 06/28/25 Subjective Subjective Interval history: Patient is in medsurg, continues to have restricted ROM in the left shoulder with pain in the left UE. Left LE weakness remains unchanged. Virtual exam Vital Signs Temp Pulse Resp BP Pulse Ox O2 Del Method 97.2 F 107 H 22 H 129/53 L 100 Room Air 06/28/25 04:00 06/28/25 16:00 06/28/25 12:01 06/28/25 12:01 06/28/25 12:01 06/26/25 19:07 Objective Labs 06/28/25 05:00 06/28/25 05:00 Labs: Laboratory Results - last 24 hr 06/28/25 05:00 WBC 15.7 H RBC 2.71 L Hgb 8.1 L Hct 23.3 L MCV 86 MCH 29.9 MCHC 34.8 RDW Std Deviation 41.5 Plt Count 143 Neut % (Auto) 86 H Lymph % (Auto) 5 L [place] % (Auto) 8 Eos % (Auto) 0 Baso % (Auto) 0 Neut # (Auto) 13.5 H Lymph # (Auto) 0.8 L [place] # (Auto) 1.2 H Eos # (Auto) 0.1 Baso # (Auto) 0.0 Immature Gran # (Auto) 0.11 H Absolute Nucleated RBC 0.00 Immature Gran % 1 H Nucleated RBC % 0 Sodium 133 L Potassium 4.1 Chloride 100 Carbon Dioxide 24.1 Anion Gap 9 BUN 50 H Creatinine 1.6 H Estim Creat Clear Calc 40.8 L eGFR 43 L BUN/Creatinine Ratio 31 H Glucose 155 H Calculated Osmolality 282 Calcium 8.4 Corrected Calcium 8.9 Phosphorus 2.5 Magnesium 2.4 Albumin 3.4 Assessment & Plan Problem List (1) Ischemic cerebrovascular accident (CVA): Status: Ruled-out Assessment and plan: s/p thrombolytics No changes in the symptoms MRI brain negative for acute infarction. continue with DAPT with statin as he was on it for CAD s/p stent placement recently (2) Lumbar spinal stenosis: Status: Chronic Assessment and plan: continue with conservative measures, might benefit from PT and pain management intervention. FU with contrasted LS MRI as per radiologist recberta (3) Shoulder pain, left: Status: Acute Assessment and plan: worsening sec to tear. Would need orthopedic evaluation and management. contonue with GP for now as it is also indicated for PHN. cannot take NSAID because of DAPT.
[2025-06-28] MEDS: ATORVASTATIN CALCIUM 20 MG TABLET 80 MG PO (22:15)
[2025-06-29] VITALS (18 sets, daily range): BP systolic 98–131; BP diastolic 52–62; PULSE 73–98; RESP 16–99; TEMP 35.9–37.6; O2SAT 98–100
--- NOTE | 2025-06-29 | XR_ITS ---
EXAMINATION: MRI lumbar spine with intravenous contrast Date and time: June 29, 2025, 0911 hours, comparison MRI lumbar spine without contrast June 27, 2025 INDICATIONS: MRI lumbar spine without contrast heterogeneous marrow signal involving all lumbar vertebral bodies TECHNIQUE AND FINDINGS: MRI left axial sagittal images post intravenous administration 5 cc gadolinium Satisfactory alignment lumbar vertebral bodies No abnormal enhancement However, multiple foci of abnormal signal in the vertebral bodies on the sagittal T1 images No impingement upon the conus medullaris IMPRESSION: Multiple foci of abnormal signal in the vertebral bodies on the sagittal T1 images Recommend plain films lumbar spine follow-up to assess for osteoblastic metastatic disease
--- NOTE | 2025-06-29 02:39 | PC.NURSE ---
pt desats on and off, pt asleep. 74% O2 sat on room air, asleep- applied O2 inh on at 2L/min/nc.
[2025-06-29] MEDS: LIDOCAINE 5% 1 PATCH TOP (04:30)
--- NOTE | 2025-06-29 04:35 | PC.NURSE ---
seen and examined by Dr. Mohsen hutchinson will place orders.
--- NOTE | 2025-06-29 04:38 | EKG_ITS ---
[facility] Test Date: 2025-06-29 Pat Name: JAIDEN TRAORE Department: Room: S358A Gender: Male Mounter Saxophones: KEVIN : 1945 Requested By: Bryon Brooks Order Number: [id number] Reading MD: Bryon Brooks Measurements Intervals [place] Rate: 89 P: -5 LA: 204 QRS: -43 QRSD: 109 T: 40 QT: 363 QTc: 443 Interpretive Statements SINUS RHYTHM INFERIOR MYOCARDIAL INFARCTION , OF INDETERMINATE AGE WITH POSTERIOR EXTENSION Compared to ECG 04/04/2025 13:42:15 Myocardial infarct finding now present First degree AV block no longer present /store/S0/[id number].pdf
[2025-06-29] MEDS: GABAPENTIN 100 MG CAPSULE PO ×3 (05:02→21:47)
[2025-06-29] MEDS: LEVOTHYROXINE SODIUM 125 MCG, LEVOTHYROXINE SODIUM 25 MCG 150 MCG PO (05:02)
[2025-06-29] MEDS: HYDROcodone/APAP 5/325 TABLET 1 TAB PO (05:02)
[2025-06-29] MEDS: CAPSAICIN CR 60 GM TUBE TOP ×2 (05:48→21:53)
[2025-06-29 05:59] LABS: INR 1.0 (0.9-1.3); Partial Thromboplastin Time 31.0 Seconds (22.0-36.0); Prothrombin Time 10.5 Seconds (9.0-12.2)
[2025-06-29 06:01] LABS: Basophils # (Auto) 0.0 Thou/mm3 (0.0-0.2); Basophils % (Auto) 0 % (0-2.5); Eosinophils # (Auto) 0.1 Thou/mm3 (0.0-0.5); Eosinophils % (Auto) 1 % (0-10); Immature Granulocytes Auto 0.09 Thou/mm3 (0.00-0.00); Lymphocytes # (Auto) 0.9 Thou/mm3 (1.0-4.8); Lymphocytes % (Auto) 9 % (10-50); Mean Corpuscular HGB Conc 34.8 g/dl (31.0-37.0); Mean Corpuscular Hemoglobin 29.8 pg (25.0-35.0); Mean Corpuscular Volume 86 fL (80-100); Monocytes # (Auto) 0.9 Thou/mm3 (0.0-0.8); Monocytes % (Auto) 9 % (0-12); Neutrophils # (Auto) 7.8 Thou/mm3 (1.8-7.7); Neutrophils % (Auto) 80 % (37-80); Nucleated Red Blood Cell # 0.00 Thou/mm3 (0.00-0.00); Nucleated Red Blood Cell % 0 /100 WBC (0); Platelet Count 171 Thou/mm3 (140-440); RDW Standard Deviation 39.6 fL (35.1-43.9); Red Blood Count 2.35 Miln/mm3 (4.50-5.90); White Blood Count 9.8 Thou/mm3 (3.8-10.6)
[2025-06-29 06:07] LABS: Hemoglobin 7.0 g/dL (13.5-16.0)
[2025-06-29 06:09] LABS: Hematocrit 20.1 % (41.0-53.0)
[2025-06-29 06:10] LABS: Albumin, Serum 3.3 gm/dL (3.4-4.8); Anion Gap 10 (7-16); BUN/Creatinine Ratio 15 Ratio (12-20); Blood Urea Nitrogen 22 mg/dL (9-23); Calcium 8.5 mg/dL (8.3-10.6); Calcium (Corrected) 9.1 mg/dL (8.5-10.1); Carbon Dioxide 22.8 mMol/L (20.0-31.0); Chloride 101 mMol/L (98-107); Creatinine (Component) 1.5 mg/dL (0.6-1.3); Estimated Creatinine Clearance 43.5 mL/min (>60); Glucose 150 mg/dL (74-106); Magnesium 2.5 mg/dL (1.6-2.6); Osmolality,Calculated 274 (275-295); Phosphorous 2.6 mg/dL (2.4-5.1); Potassium 3.8 mMol/L (3.4-5.1); Sodium 134 mMol/L (136-145); Troponin I < 0.020 ng/mL (0.0-0.045); eGFR 47 See Note
--- NOTE | 2025-06-29 08:51 | XR_ITS ---
EXAMINATION: Ultrasound guided left shoulder aspiration Ultrasound soft tissue extremity left shoulder Date and time: June 29, 2025, 1105 hours INDICATIONS: Ultrasound left shoulder yesterday large complex fluid collection anterior shoulder 6.8 x 1.0 x 4.9 cm TECHNIQUE AND FINDINGS: Informed consent provided. Timeout performed. Skin prepped over the area of concern left shoulder and local anesthesia obtained with 1% lidocaine, sterile drape and hygiene ultrasound sterile technique Utilizing ultrasonographic guidance 10 cc of grossly bloody fluid withdrawn with a 21-gauge needle Material sent for culture and sensitivity and cytologic analysis Estimated blood loss 1 cc IMPRESSION: Successful ultrasound guided left shoulder aspiration
[2025-06-29] MEDS: ASPIRIN EC 81 MG TABEC PO (09:45)
[2025-06-29] MEDS: CLOPIDOGREL BISULFATE 75 MG TABLET PO (09:45)
[2025-06-29] MEDS: TAMSULOSIN HCL 0.4 MG CAPSULE PO (09:45)
[2025-06-29] MEDS: PIPER/TAZO 3.375 GM PREMIX 3.375 GM/50 ML BAG IV ×2 (09:45→17:34)
[2025-06-29] MEDS: OXYBUTYNIN CHLOR 5 MG TABLET PO (09:47)
[2025-06-29 10:23] LABS: Hematocrit 19.9 % (41.0-53.0); Hemoglobin 6.7 g/dL (13.5-16.0)
[2025-06-29] MEDS: INSULIN LISPRO (AdmeLOG) 1 UNIT/0.01 ML UNIT SC ×2 (12:21→16:26)
--- NOTE | 2025-06-29 12:33 | PC.PT ---
Patient will be D/C from PT 08/08 patient is now xI per WOOD SAWYER. Patient was able to ambulate to the bathroom and shower xI. Patient is back to his PLOF. RN made aware.
--- NOTE | 2025-06-29 14:49 | ESPR_ITS ---
<Statement entered by Rishi Martinez MD - 07/04/25 07:58> I reviewed above note and agree with findings and plans. I have also personally examined the patient with medicine team and went over assessment and plan with medical team including computer science intern and resident physician. <Statement entered by Feliciano Slagado MD - 06/29/25 14:57> Patient was seen and examined at the bedside. Patient had fluid removed from his left shoulder joint which was bright red likely blood. Patient had acute drop in hemoglobin to 6.6 therefore 2 units PRBC were ordered to be transfused. Will follow-up in H&H. Patient was found to have ESBL in his urine therefore Zosyn was initiated. Certified Ophthalmic Technologist and neurologist was contacted given patient's acute anemia to hold aspirin and Plavix and they both were agreeable to that. Will hold aspirin and Plavix for 2 days closely monitor hemoglobin. FOBT ordered to rule out any other source of bleeding. Family was updated. 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 All labs and orders were reviewed. I discussed and supervised with the computer science intern physician who took care of this patient. I personally saw and examined the patient. I agree with most of the assessment and plan. Disclaimer: Despite multiple revisions, due to the dictation software being used, the document bellow may not be free of grammatical errors including phonetic/typographic errors. However, this does not deter from our commitment to providing health care in the patient's best interest in mind. Plan of care discussed with attending Physician Dr. Trevin Salgado MD PGY-3 Documentation for date of: 06/29/25 Subjective Subjective Interval history: Vitals/labs significant for WBC 15.7->9.8, Hgb 8.1->7.0, coagulation panel normal, creatinine 1.6->1.5. Patient was seen and examined at the bedside. Today, joint aspiration by IR was successfully conducted and bloody fluid was evacuated from patient's left shoulder. Patient had acute drop in hemoglobin to 6.7 therefore 2 units PRBC were ordered to be transfused but this was not performed until later in the evening due to delays on the side of the blood bank (will follow-up on post-transfusion H&H). Patient was also found to have ESBL in his urine therefore Rocephin was swapped to Zosyn 3.375 g IV Q6HR. Certified Ophthalmic Technologist and neurologist was contacted given patient's acute anemia to hold aspirin and Plavix and they both were agreeable to that. Will hold aspirin and Plavix for 2 days closely monitor hemoglobin. FOBT ordered to rule out any other source of bleeding. Family was updated. 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 Exam Vital Signs Temp Pulse Resp BP Pulse Ox O2 Del Method 98.6 F 86 19 116/58 L 99 Room Air 06/29/25 12:00 06/29/25 12:00 06/29/25 12:00 06/29/25 12:00 06/29/25 12:06/29/25 12:00 Narrative Exam General Appearance: Pt in no acute distress, lethargic but easily arousable, conversational (Bengali speaking). HEENT: NC/AT, no scleral icterus, no conjunctival pallor, MMM Lungs: CTAB, no wheezes or crackles appreciated CVS: RRR, S1/S2 heard, no murmurs or rubs appreciated ABD: Soft, non-tender, non-distended, BS + EXT: radial pulses 2+ BL, DP pulses 2 + BL SKIN: bruises on the lue/mid flank c/f hematoma violacious and deep maroon on the lateral scapula Neuro: A&O x 3. 5/5 in right upper and lower extremity. 5/5 to left lower extremity. proximal weakness of the lue, able to flex shoulder with passive range of motion, Psych: Appropriate mood and affect Objective Labs 06/30/25 01:34 06/29/25 05:05 Labs: Laboratory Results - last 24 hr 06/29/25 06/29/25 05:05 10:05 WBC 9.8 D RBC 2.35 L Hgb 7.0 L 6.7 L* Hct 20.1 L* 19.9 L* MCV 86 MCH 29.8 MCHC 34.8 RDW Std Deviation 39.6 Plt Count 171 Neut % (Auto) 80 Lymph % (Auto) 9 L [place] % (Auto) 9 Eos % (Auto) 1 Baso % (Auto) 0 Neut # (Auto) 7.8 H Lymph # (Auto) 0.9 L [place] # (Auto) 0.9 H Eos # (Auto) 0.1 Baso # (Auto) 0.0 Immature Gran # (Auto) 0.09 H Absolute Nucleated RBC 0.00 Immature Gran % 1 H Nucleated RBC % 0 PT 10.5 INR 1.0 APTT 31.0 Sodium 134 L Potassium 3.8 Chloride 101 Carbon Dioxide 22.8 Anion Gap 10 BUN 22 Creatinine 1.5 H Estim Creat Clear Calc 43.5 L eGFR 47 L BUN/Creatinine Ratio 15 Glucose 150 H Calculated Osmolality 274 L Calcium 8.5 Corrected Calcium 9.1 Phosphorus 2.6 Magnesium 2.5 Troponin I < 0.020 Albumin 3.3 L Blood Type O Positive Antibody Screen NEGATIVE Crossmatch See Detail Blood Bank Wristband ID Yes Quality Measures Quality Measures stroke Suspected type of Stroke: Acute Ischemic (Right-sided) Last known well (date): 06/26/25 Tenecteplase given: within 60 min of arrival Rehab services: PT evaluation ordered VTE Prophylaxis: mechanical Antithrombotic by day 2:: not indicated (describe) Statin ordered: <75 y/o high intensity dose Anticoagulation ordered for A-fib or flutter (current or hx): not indicated Advance care planning discussed with:: patient Assessment & Plan Assessment Current Active Medications: Generic Name Dose Route Start Last Admin Trade Name Freq PRN Reason Stop Dose Admin Acetaminophen 650 mg 06/26/25 03:33 06/26/25 11:57 Acetaminophen 325 Mg Tablet PO 07/26/25 03:32 650 mg Q4HR PRN Administration PAIN SCALE 1-3 (mild Aspirin 81 mg 06/28/25 09:00 06/29/25 09:45 Aspirin Ec 81 Mg Tabec PO 07/28/25 08:59 81 mg On Hold: 06/29/25 11:55 QDAY PAULINA Administration Atorvastatin Calcium 80 mg 06/26/25 21:00 06/28/25 22:15 Atorvastatin Calcium 20 Mg Tablet PO 07/26/25 20:59 80 mg QPM PAULINA Administration Capsaicin 0 gm 06/26/25 09:11 06/29/25 05:48 Capsaicin Cr 60 Gm Tube TOP 07/26/25 07:14 1 appln TID PAULINA Administration Clopidogrel Bisulfate 75 mg 06/27/25 09:00 06/29/25 09:45 Clopidogrel Bisulfate 75 Mg Tablet PO 07/27/25 08:59 75 mg On Hold: 06/29/25 11:55 QDAY PAULINA Administration Dextrose 25 ml 06/26/25 03:43 Dextrose 50%-Water Inj 50 Ml Syringe IV 07/26/25 03:42 Q15MIN PRN BG 50-70 responsive npo pt Dextrose 50 ml 06/26/25 03:43 Dextrose 50%-Water Inj 50 Ml Syringe IV 07/26/25 03:42 Q15MIN PRN BG <50 OR BG <70 & pt unresponsive Gabapentin 100 mg 06/27/25 14:00 06/29/25 05:02 Gabapentin 100 Mg Capsule PO 07/27/25 13:59 100 mg TID PAULINA Administration Hydromorphone HCl 0.5 mg 06/26/25 04:35 06/28/25 09:23 Hydromorphone Inj 2 Mg/Ml Vial IVP 07/01/25 04:34 0.5 mg Q4HR PRN Administration severe pain 7-10 Nicardipine/Sodium Chloride 20 mg in 200 mls @ 50 mls/hr 06/26/25 02:13 Cardene Ivpb IV 07/26/25 02:12 .Q4H PRN Per Nicardipine Stroke Protocol Protocol 5 MG/HR Piperacillin/Tazobactam/Dextrose 3.375 gm in 50 mls @ 100 mls/hr 06/29/25 08:45 06/29/25 13:10 Zosyn IV 07/06/25 08:44 Not Given Q6HR [facility] Protocol Insulin Human Lispro 0 unit 06/28/25 10:02 06/29/25 12:21 Insulin Lispro (Admelog) 1 Unit/0.01 Ml Unit SC 07/27/25 07:29 3 unit ACHS PAULINA Administration Protocol Labetalol HCl 10 mg 06/26/25 01:59 Labetalol Inj 5 Mg/Ml Vial 4 Ml IVP Q15M PRN hypertension Labetalol HCl 10 mg 06/26/25 02:13 Labetalol Inj 5 Mg/Ml Vial 4 Ml IVP PRNMRX1 PRN SBP > 185 mmHg and/or DBP > 110 Labetalol HCl 10 mg 06/26/25 02:13 Labetalol Inj 5 Mg/Ml Vial 4 Ml IVP PRNMRX1 PRN SBP > 180 mmHg or DBP > 105 Lactulose 20 gm 06/28/25 16:00 06/29/25 06:43 Lactulose Syrup 20 Gm/30 Ml Udc PO 07/28/25 15:59 Not Given TID PAULINA Protocol Levothyroxine Sodium 125 mcg/ 150 mcg 06/28/25 09:15 06/29/25 05:02 Levothyroxine Sodium 25 mcg PO 07/28/25 09:14 150 mcg ACBR PAULINA Administration Lidocaine 1 patch 06/26/25 10:27 06/29/25 04:30 Lidocaine 5% 1 Patch TOP 07/26/25 10:26 1 patch UD PRN Administration PAIN Protocol Ondansetron HCl 4 mg 06/26/25 01:59 Ondansetron Inj 2 Mg/Ml Inj 2 Ml IVP 07/26/25 01:58 Q4HR PRN NAUSEA OR VOMITING Oxybutynin Chloride 5 mg 06/26/25 09:00 06/29/25 09:47 Oxybutynin Chlor 5 Mg Tablet PO 07/26/25 08:59 5 mg QDAY PAULINA Administration Sennosides 1 tab 06/28/25 16:00 06/29/25 09:45 Senna Tablet PO 07/28/25 15:59 1 tab QDAY PAULINA Administration Protocol Tamsulosin HCl 0.4 mg 06/26/25 09:00 06/29/25 09:45 Tamsulosin Hcl 0.4 Mg Capsule PO 07/26/25 08:59 0.4 mg QDAY PAULINA Administration Angie Randle is a 79-year-old male with past medical history significant for recent coronary artery stent placed in March currently on aspirin and Plavix, shingles, diabetes mellitus, hypertension, BPH, thyroidectomy who presented to the ED with new onset left-sided upper and lower extremity weakness and admitted to ICU for further monitoring status post TNK administration in the setting of possible acute ischemic stroke. #Left-sided upper weakness and chronic lower extremity weakness #s/p TNK administration 06/26/25 DDx: TIA vs Complicated migraine vs severe post-neuropathic pain from hx of shingles Dx: -06/[address] negative -06/26 head/neck CTA negative -06/26 echo negative for PFO -06/27 brain MRI negative for acute stroke but showed mild but definite dilatation of the extra-axial space overlying the frontal lobe convexities and anterior temporal lobes and [place] region consistent w/ mild atrophy (ventricular system is also moderately dilated) -06/27 lumbar spine MRI w/o contrast showed heterogeneous marrow signal involving all lumbar vertebral bodies concerning for osseous metastatic disease as well as severe overall spinal stenosis of L4-L5 including mild bilateral L4 ganglionic compression -06/[address] 24HR s/p TNK per protocol negative -06/28 lumbar spine MRI w/ contrast planned, showed multiple foci of abnormal signal in the vertebral bodies 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 daily (being held) -Atorvastatin 80 mg p.o. nightly (being held) #DM type II- well controlled Patient is on Jardiance and Metformin Rx: ? ISS ? Closely monitor glucose level #h/o Hypothyroidism Rx: -Levothyroxine 150 mcg PO QAM #Left upper arm pain #Left shoulder joint hematoma 2/2 assisted fall i/s/o recent TNK administration, now s/p 06/29 joint aspiration Pertinent labs: D-dimer elevated 3000+ , XR L shoulder negative for acute fractures, L humerus xr without fracture or dislocation, DVT US negative In setting of TNK given and assisted fall to the ground Dx: ? Left shoulder MRI ordered, showed large joint effusion with complete chronic atrophy and degeneration and tear involving the tendons of the supraspinatus and infraspinatus muscles ? Soft tissue ultrasound of the left shoulder ordered, confirmed the presence of fluid in the joint space Rx: ? 06/29 left shoulder joint aspiration successfully performed, removing bloody fluid #Acute blood loss anemia 06/29 Hgb 8.1->6.7, steadily down-trending from 12.6 since admission on 06/26 Likely in part to hematoma but could be contributed to by other occult bleeding Dx: -FOBT ordered, showed ___ Rx: -pRBC transfusion x 2 on 06/29 -Follow up on post-transfusion H&H -Cardiology and Neurology consulted, amenable to having aspirin and Plavix held for at least the next 2 days #ESBL UTI Patient found to have ESBL growing in his UCx on 06/29 Rx: -Zosyn 3.375 g IV Q6HR [06/28--] -s/p Rocephin #Post herpetic Neuralgia Hx shingles patient has had shingles 2 years ago, he states that he had flare up on his LUE and L lower abdomen, no signs of active flare on physical exam, he appears more somnolent, on exam, Rx: capsaicin cream, lidocaine patch, gabapentin 100 tid, hold for over-sedation Health Maintenance: DVT prophylaxis: Plavix (being held) GI prophylaxis: None Diet: Cardiac CODE STATUS: Full Code Disposition: Admitted to ICU for status post TNK administration in the setting of possible acute ischemic stroke, now downgraded from ICU to telemetry. Case discussed with my senior resident Dr. Salgado and my attending Dr. Michelle Zhong, DO PGY-1
[2025-06-29] MEDS: ATORVASTATIN CALCIUM 20 MG TABLET 80 MG PO (21:47)
--- NOTE | 2025-06-29 21:47 | PD.VPROG1 ---
Telemedicine visit statement This visit was conducted with the use of interactive audio and video telecommunications system that permits real time communication between the patient and the provider. Patient's verbal consent for virtual visit was obtained on 06/29/25 at 2147. Documentation for date of: 06/29/25 Subjective Subjective Interval history: Patient is in medsurg, continues to have restricted ROM in the left shoulder with pain in the left UE. Left LE weakness is better to the point of walking with PT. Virtual exam Vital Signs Temp Pulse Resp BP Pulse Ox O2 Del Method 97.6 F 98 18 130/62 99 Room Air 06/29/25 18:37 06/29/25 21:34 06/29/25 21:34 06/29/25 18:37 06/29/25 18:37 06/29/25 15:38 Objective Labs 07/01/25 04:50 07/01/25 04:50 Labs: Laboratory Results - last 24 hr 06/29/25 06/29/25 05:05 10:05 WBC 9.8 D RBC 2.35 L Hgb 7.0 L 6.7 L* Hct 20.1 L* 19.9 L* MCV 86 MCH 29.8 MCHC 34.8 RDW Std Deviation 39.6 Plt Count 171 Neut % (Auto) 80 Lymph % (Auto) 9 L [place] % (Auto) 9 Eos % (Auto) 1 Baso % (Auto) 0 Neut # (Auto) 7.8 H Lymph # (Auto) 0.9 L [place] # (Auto) 0.9 H Eos # (Auto) 0.1 Baso # (Auto) 0.0 Immature Gran # (Auto) 0.09 H Absolute Nucleated RBC 0.00 Immature Gran % 1 H Nucleated RBC % 0 PT 10.5 INR 1.0 APTT 31.0 Sodium 134 L Potassium 3.8 Chloride 101 Carbon Dioxide 22.8 Anion Gap 10 BUN 22 Creatinine 1.5 H Estim Creat Clear Calc 43.5 L eGFR 47 L BUN/Creatinine Ratio 15 Glucose 150 H Calculated Osmolality 274 L Calcium 8.5 Corrected Calcium 9.1 Phosphorus 2.6 Magnesium 2.5 Troponin I < 0.020 Albumin 3.3 L Blood Type O Positive Antibody Screen NEGATIVE Crossmatch See Detail Blood Bank Wristband ID Yes Assessment & Plan Problem List (1) Ischemic cerebrovascular accident (CVA): Status: Ruled-out Assessment and plan: s/p thrombolytics No changes in the symptoms MRI brain negative for acute infarction. Holding DAPT sec to hematoma in the left shoulder s/p drainage under US guidance. Waiting for culture results. continue with statin as he was on it for CAD s/p stent placement recently (2) Lumbar spinal stenosis: Status: Chronic Assessment and plan: continue with conservative measures, might benefit from PT and pain management intervention. contrasted LS MRI findings: reviewed. continue with GP (3) Shoulder pain, left: Status: Acute Assessment and plan: s/p drainage of hematoma fu with culture results.
--- NOTE | 2025-06-29 23:20 | ESPR_ITS ---
RE: MOISES TRAORE : 1945 DATE OF SERVICE: 06/29/2025 SUBJECTIVE: Mr. Moises Traore is an 79-year-old male admitted to the hospital with questionable stroke and left-sided weakness, though the patient appeared to have bilateral weakness initially. Weakness improved, but the new problem is hemoglobin dropped to 6.7 gradually. Initially, hemoglobin was 10.7. The patient was given 2 units of packed red cells transfused. Not sure the source of bleeding here. Clearly dropped his hemoglobin significantly. He did have thrombolytic therapy, may have played a part here. He is also on dual antiplatelet drug therapy, which can be held for a few days since there is a significant drop in hemoglobin. Otherwise, the patient is not complaining of any shortness of breath or chest pain. OBJECTIVE: VITAL SIGNS: Blood pressure 116/68, pulse rate is 86, respirations 19, temperature normal. NECK: Supple. No JVD. LUNGS: Decreased breath sounds at bases. No rales, no rhonchi. HEART: Regular. ABDOMEN: Soft. EXTREMITIES: With no edema. NEUROLOGIC: Examination is normal. LABORATORY DATA: Hemoglobin 6.7, hematocrit 19. Transfusion ordered. Rest of the laboratory showed white count is normal, the creatinine 1.5. IMPRESSION: 1. Questionable stroke, received tissue plasminogen activator, TNKase. 2. Coronary artery disease status post recent multivessel stent placement on aspirin and Plavix. 3. Significant drop in hemoglobin, anemia, possible blood loss due to thrombolytic therapy and antiplatelet drug therapy. RECOMMENDATIONS: You can hold aspirin and Plavix for next 3-4 days until the hemoglobin stabilizes. When you resume, probably resume single antiplatelet drug therapy, Plavix only, after 5 days. If his active bleeding, continue to hold aspirin and Plavix since it has been more than 30 days. DT: 23:09:09 TT: 23:19:00 Ref: [id number] - TID: [id number]
[2025-06-30] VITALS (8 sets, daily range): BP systolic 93–125; BP diastolic 56–80; PULSE 67–94; RESP 17–99; TEMP 36.2–36.7; O2SAT 96–99; BMI 35.4
[2025-06-30] MEDS: PIPER/TAZO 3.375 GM PREMIX 3.375 GM/50 ML BAG IV ×4 (00:20→18:09)
[2025-06-30 01:48] LABS: Hematocrit 23.8 % (41.0-53.0)
[2025-06-30 01:49] LABS: Hemoglobin 8.1 g/dL (13.5-16.0)
[2025-06-30] MEDS: GABAPENTIN 100 MG CAPSULE PO ×3 (05:05→21:16)
[2025-06-30] MEDS: LACTULOSE SYRUP 20 GM/30 ML UDC PO ×2 (05:05→21:16)
[2025-06-30] MEDS: LEVOTHYROXINE SODIUM 125 MCG, LEVOTHYROXINE SODIUM 25 MCG 150 MCG PO (05:05)
[2025-06-30] MEDS: CAPSAICIN CR 60 GM TUBE TOP ×3 (05:06→21:19)
[2025-06-30 05:37] LABS: Basophils # (Auto) 0.0 Thou/mm3 (0.0-0.2); Basophils % (Auto) 0 % (0-2.5); Eosinophils # (Auto) 0.2 Thou/mm3 (0.0-0.5); Eosinophils % (Auto) 3 % (0-10); Hematocrit 24.0 % (41.0-53.0); Immature Granulocytes Auto 0.12 Thou/mm3 (0.00-0.00); Lymphocytes # (Auto) 1.0 Thou/mm3 (1.0-4.8); Lymphocytes % (Auto) 15 % (10-50); Mean Corpuscular HGB Conc 34.2 g/dl (31.0-37.0); Mean Corpuscular Hemoglobin 27.6 pg (25.0-35.0); Mean Corpuscular Volume 81 fL (80-100); Monocytes # (Auto) 0.7 Thou/mm3 (0.0-0.8); Monocytes % (Auto) 11 % (0-12); Neutrophils # (Auto) 4.6 Thou/mm3 (1.8-7.7); Neutrophils % (Auto) 69 % (37-80); Nucleated Red Blood Cell # 0.02 Thou/mm3 (0.00-0.00); Nucleated Red Blood Cell % 0 /100 WBC (0); Platelet Count 193 Thou/mm3 (140-440); RDW Standard Deviation 47.5 fL (35.1-43.9); Red Blood Count 2.97 Miln/mm3 (4.50-5.90); White Blood Count 6.6 Thou/mm3 (3.8-10.6)
[2025-06-30 05:38] LABS: Hemoglobin 8.2 g/dL (13.5-16.0)
[2025-06-30 06:16] LABS: Alanine Aminotransferase 22 U/L (10-49); Albumin, Serum 3.7 gm/dL (3.4-4.8); Albumin/Globulin Ratio 1.5 (1.2-2.2); Alkaline Phosphatase 102 U/L (46-116); Anion Gap 11 (7-16); Aspartate Amino Transferase 48 U/L (0-34); BUN/Creatinine Ratio 32 Ratio (12-20); Bilirubin,Total 1.2 mg/dL (0.3-1.2); Blood Urea Nitrogen 45 mg/dL (9-23); Calcium 8.4 mg/dL (8.3-10.6); Calcium (Corrected) 8.6 mg/dL (8.5-10.1); Carbon Dioxide 22.0 mMol/L (20.0-31.0); Chloride 104 mMol/L (98-107); Creatinine (Component) 1.4 mg/dL (0.6-1.3); Estimated Creatinine Clearance 46.6 mL/min (>60); Globulin 2.5 gm/dL (2.3-3.5); Glucose 176 mg/dL (74-106); Magnesium 2.3 mg/dL (1.6-2.6); Osmolality,Calculated 289 (275-295); Phosphorous 2.6 mg/dL (2.4-5.1); Potassium 4.0 mMol/L (3.4-5.1); Sodium 137 mMol/L (136-145); Total Protein 6.2 gm/dL (5.7-8.2); eGFR 51 See Note
[2025-06-30] MEDS: INSULIN LISPRO (AdmeLOG) 1 UNIT/0.01 ML UNIT SC ×2 (07:44→18:08)
--- NOTE | 2025-06-30 08:00 | PD.RESPRO ---
Documentation for date of: 06/30/25 Subjective Subjective Interval history: Yesterday (06/29), patient's hemoglobin dropped to 6.7. Patient received 2 PRBC infusions which increased to 8.2 today. Continue to hold aspirin and Plavix for 4 to 5 days. And recommend continuing anemia workup. Today BP 117/58, MS 71 and 99% O2 saturation on room air. Patient denies any shortness of breath, chest pain, or palpitations. Will continue to monitor. Exam Vital Signs Temp Pulse Resp BP Pulse Ox O2 Del Method 97.5 F 94 18 93/56 L 97 Room Air 06/30/25 08:00 06/30/25 08:00 06/30/25 08:00 06/30/25 08:00 06/30/25 08:00 06/30/25 08:00 Narrative Exam General: No acute distress, well nourished, AAO x3 Eye: PERRL, EOMI, normal conjunctiva, no scleral icterus HENT: Normocephalic, atraumatic, hearing intact to conversation at normal volume, moist oral mucosa Neck: Supple, non-tender, no JVD, no lymphadenopathy Lungs: Non-labored respirations, symmetric chest rise, Clear to auscultate bilaterally, No wheezing, rhonchi, crackles Heart: Peripheral pulses intact bilaterally, Regular Rate and Rhythm. Abdomen: Soft, non-tender, non-distended, no palpable masses Musculoskeletal: Normal range of motion and strength, No cyanosis or edema, No visible joint swelling Skin: Skin is warm, dry, no rashes or lesions. Psychiatric: Cooperative, appropriate mood and affect, Awake and alert, not agitated Neuro: Cranial nerves II-XII grossly intact. Sensations intact to light touch. Objective Labs 06/30/25 04:52 06/30/25 04:52 Labs: Laboratory Results - last 24 hr 06/29/25 06/30/25 06/30/25 10:05 01:34 04:32 WBC RBC Hgb 8.1 L D Hct 23.8 L MCV MCH MCHC RDW Std Deviation Plt Count Neut % (Auto) Lymph % (Auto) [place] % (Auto) Eos % (Auto) Baso % (Auto) Neut # (Auto) Lymph # (Auto) [place] # (Auto) Eos # (Auto) Baso # (Auto) Immature Gran # (Auto) Absolute Nucleated RBC Immature Gran % Nucleated RBC % Sodium Potassium Chloride Carbon Dioxide Anion Gap BUN Creatinine Estim Creat Clear Calc eGFR BUN/Creatinine Ratio Glucose Calculated Osmolality Calcium Corrected Calcium Phosphorus Magnesium Total Bilirubin AST ALT Alkaline Phosphatase Total Protein Albumin Globulin Albumin/Globulin Ratio Prostate Specific Ag 17.48 H D Blood Type O Positive Antibody Screen NEGATIVE Crossmatch See Detail Blood Bank Wristband ID Yes 06/30/25 04:52 WBC 6.6 RBC 2.97 L Hgb 8.2 L Hct 24.0 L MCV 81 MCH 27.6 MCHC 34.2 RDW Std Deviation 47.5 H Plt Count 193 Neut % (Auto) 69 Lymph % (Auto) 15 [place] % (Auto) 11 Eos % (Auto) 3 Baso % (Auto) 0 Neut # (Auto) 4.6 Lymph # (Auto) 1.0 [place] # (Auto) 0.7 Eos # (Auto) 0.2 Baso # (Auto) 0.0 Immature Gran # (Auto) 0.12 H Absolute Nucleated RBC 0.02 H Immature Gran % 2 H Nucleated RBC % 0 Sodium 137 Potassium 4.0 Chloride 104 Carbon Dioxide 22.0 Anion Gap 11 BUN 45 H Creatinine 1.4 H Estim Creat Clear Calc 46.6 L eGFR 51 L BUN/Creatinine Ratio 32 H Glucose 176 H Calculated Osmolality 289 Calcium 8.4 Corrected Calcium 8.6 Phosphorus 2.6 Magnesium 2.3 Total Bilirubin 1.2 AST 48 H ALT 22 Alkaline Phosphatase 102 Total Protein 6.2 Albumin 3.7 Globulin 2.5 Albumin/Globulin Ratio 1.5 Prostate Specific Ag Blood Type Antibody Screen Crossmatch Blood Bank Wristband ID Quality Measures Quality Measures stroke Suspected type of Stroke: Acute Ischemic (Right-sided) Last known well (date): 06/26/25 Tenecteplase given: within 60 min of arrival Rehab services: PT evaluation ordered VTE Prophylaxis: not indicated Antithrombotic by day 2:: not indicated (describe) Statin ordered: >75 y/o moderate or high intensity dose Anticoagulation ordered for A-fib or flutter (current or hx): not indicated Advance care planning discussed with:: patient Assessment & Plan Assessment Current Active Medications: Generic Name Dose Route Start Last Admin Trade Name Freq PRN Reason Stop Dose Admin Acetaminophen 650 mg 06/26/25 03:33 06/26/25 11:57 Acetaminophen 325 Mg Tablet PO 07/26/25 03:32 650 mg Q4HR PRN Administration PAIN SCALE 1-3 (mild Aspirin 81 mg 06/28/25 09:00 06/29/25 09:45 Aspirin Ec 81 Mg Tabec PO 07/28/25 08:59 81 mg On Hold: 06/29/25 11:55 QDAY PAULINA Administration Atorvastatin Calcium 80 mg 06/26/25 21:00 06/29/25 21:47 Atorvastatin Calcium 20 Mg Tablet PO 07/26/25 20:59 80 mg QPM PAULINA Administration Capsaicin 0 gm 06/26/25 09:11 06/30/25 05:06 Capsaicin Cr 60 Gm Tube TOP 07/26/25 07:14 1 appln TID PAULINA Administration Clopidogrel Bisulfate 75 mg 06/27/25 09:00 06/29/25 09:45 Clopidogrel Bisulfate 75 Mg Tablet PO 07/27/25 08:59 75 mg On Hold: 06/29/25 11:55 QDAY PAULINA Administration Dextrose 25 ml 06/26/25 03:43 Dextrose 50%-Water Inj 50 Ml Syringe IV 07/26/25 03:42 Q15MIN PRN BG 50-70 responsive npo pt Dextrose 50 ml 06/26/25 03:43 Dextrose 50%-Water Inj 50 Ml Syringe IV 07/26/25 03:42 Q15MIN PRN BG <50 OR BG <70 & pt unresponsive Gabapentin 100 mg 06/27/25 14:00 06/30/25 05:05 Gabapentin 100 Mg Capsule PO 07/27/25 13:59 100 mg TID PAULINA Administration Hydromorphone HCl 0.5 mg 06/26/25 04:35 06/28/25 09:23 Hydromorphone Inj 2 Mg/Ml Vial IVP 07/01/25 04:34 0.5 mg Q4HR PRN Administration severe pain 7-10 Piperacillin/Tazobactam/Dextrose 3.375 gm in 50 mls @ 100 mls/hr 06/29/25 08:45 06/30/25 05:05 Zosyn IV 07/06/25 08:44 100 mls/hr Q6HR PAULINA Administration Protocol Insulin Human Lispro 0 unit 06/28/25 10:02 06/30/25 07:44 Insulin Lispro (Admelog) 1 Unit/0.01 Ml Unit SC 07/27/25 07:29 2 unit ACHS PAULINA Administration Protocol Labetalol HCl 10 mg 06/26/25 01:59 Labetalol Inj 5 Mg/Ml Vial 4 Ml IVP Q15M PRN hypertension Labetalol HCl 10 mg 06/26/25 02:13 Labetalol Inj 5 Mg/Ml Vial 4 Ml IVP PRNMRX1 PRN SBP > 185 mmHg and/or DBP > 110 Labetalol HCl 10 mg 06/26/25 02:13 Labetalol Inj 5 Mg/Ml Vial 4 Ml IVP PRNMRX1 PRN SBP > 180 mmHg or DBP > 105 Lactulose 20 gm 06/28/25 16:00 06/30/25 05:05 Lactulose Syrup 20 Gm/30 Ml Udc PO 07/28/25 15:59 20 gm TID PAULINA Administration Protocol Levothyroxine Sodium 125 mcg/ 150 mcg 06/28/25 09:15 06/30/25 05:05 Levothyroxine Sodium 25 mcg PO 07/28/25 09:14 150 mcg ACBR PAULINA Administration Lidocaine 1 patch 06/26/25 10:27 06/29/25 04:30 Lidocaine 5% 1 Patch TOP 07/26/25 10:26 1 patch UD PRN Administration PAIN Protocol Ondansetron HCl 4 mg 06/26/25 01:59 Ondansetron Inj 2 Mg/Ml Inj 2 Ml IVP 07/26/25 01:58 Q4HR PRN NAUSEA OR VOMITING Oxybutynin Chloride 5 mg 06/26/25 09:00 06/30/25 09:40 Oxybutynin Chlor 5 Mg Tablet PO 07/26/25 08:59 5 mg QDAY PAULINA Administration Sennosides 1 tab 06/28/25 16:00 06/30/25 09:39 Senna Tablet PO 07/28/25 15:59 1 tab QDAY PAULINA Administration Protocol Tamsulosin HCl 0.4 mg 06/26/25 09:00 06/30/25 09:41 Tamsulosin Hcl 0.4 Mg Capsule PO 07/26/25 08:59 0.4 mg QDAY PAULINA Administration Plan Razia is a 79-year-old male with past medical history significant for recent coronary artery stent placed in March currently on aspirin and Plavix, shingles, diabetes mellitus, hypertension, BPH, thyroidectomy who presented to the ED with new onset left-sided upper and lower extremity weakness and admitted to ICU for further monitoring status post TNK administration in the setting of possible acute ischemic stroke. #Hx of CAD s/p recent PTCA of left ramus intermedius #Hx of HFrEF 30-35% #Hx of HTN #Hx of HLD Previous coronary stent placement in LAD, RCA who recently had angina pectoris and underwent stent placement in ramus intermedius on 04/05/2025. He has been on dual antiplatelet drug therapy, aspirin 81 mg daily and clopidogrel 75 mg daily, along with statin 40 mg atorvastatin and benazepril for hypertension and Lasix 40 mg daily. Patient's last echo taken 11/27 showed stage I diastolic dysfunction with estimated EF 35-40% Triglycerides 133, cholesterol 193, LDL 120, HDL 46. -ECHO (06/26/2025): 1. Left ventricle size is normal and systolic function is moderately reduced. Estimated ejection fraction is 50-55%. There is grade I diastolic dysfunction. 2. Right ventricle chamber size is normal and systolic function is normal. Estimated RVSP is 7 mmHg. 3. Trace MR, TR, AI. 4. The left atrium is normal. The right atrium is normal. 5. Normal IVC with estimated RA pressure 3 mmHg. 6. No evidence of PFO. Negative bubble study. -Plavix and asprin currently held due to acute anemia -Atorvastatin 80 qhs #Left supraspinatus and infraspinatus tear #Left-sided upper and lower weakness S/p TNK administration 06/26/25 #DM type II- well controlled #Hypothyroidism #Left upper arm pain #Post herpetic Neuralgia -Management per Primary Hospitalist team Thank you for allowing us to participate in the care of Mr. Moises Randle Assessment and plan discussed with my attending physician Dr. Pablito Baltazar (PGY-1) - Internal medicine resident Attending Provider Attestation/Addendum I reviewed the resident Dr. Francisco Baltazar consultation progress note and agree with the resident findings and plan in the note above and have also edited the documentation to reflect my findings and plan. Juventino Kenney M.D. Interventional Cardiology
[2025-06-30 08:34] LABS: Prostate Specific Antigen 17.48 ng/mL (0-4.00)
[2025-06-30] MEDS: OXYBUTYNIN CHLOR 5 MG TABLET PO (09:40)
[2025-06-30] MEDS: TAMSULOSIN HCL 0.4 MG CAPSULE PO (09:41)
[2025-06-30 12:19] LABS: OBS Card Lot # 0124; OBS Developer Lot # 23002; OBS QC OK? Yes; Occult Blood, Stool Negative (Negative)
--- NOTE | 2025-06-30 13:19 | ESPR_ITS ---
<Statement entered by Rishi Martinez MD - 07/04/25 08:00> I reviewed above note and agree with findings and plans. I have also personally examined the patient with medicine team and went over assessment and plan with medical team including internet application developer and resident physician. <Statement entered by Feliciano Salgado MD - 06/30/25 14:56> Patient was seen and examined at the bedside. No acute overnight events were reported. This morning, patient continues to have limited movement of his left shoulder with improvement in the bruising on left side. FOBT came negative. Patient's hemoglobin has been stable at 8.2. Were currently holding aspirin and Plavix and will likely consider restarting tomorrow based on cardiology and neurology recommendations if patient does not have another episode of acute drop in hemoglobin. Pending signout will fluid analysis. Will keep the patient to monitor closely for acute bleeding. 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 we added diclofenic gel for left shoulder pain. Encouraged patient to take Tylenol for shoulder pain. All labs and orders were reviewed. I discussed and supervised with the internet application developer physician who took care of this patient. I personally saw and examined the patient. I agree with most of the assessment and plan. Disclaimer: Despite multiple revisions, due to the dictation software being used, the document bellow may not be free of grammatical errors including phonetic/typographic errors. However, this does not deter from our commitment to providing health care in the patient's best interest in mind. Plan of care discussed with attending Physician Dr. Trevin Salgado MD PGY-3 Documentation for date of: 06/30/25 Subjective Subjective Interval history: (pulled from senior resident attestation) Patient was seen and examined at the bedside. No acute overnight events were reported. This morning, patient continues to have limited movement of his left shoulder with improvement in the bruising on left side. FOBT came negative. Patient's hemoglobin has been stable at 8.2. Were currently holding aspirin and Plavix and will likely consider restarting tomorrow based on cardiology and neurology recommendations if patient does not have another episode of acute drop in hemoglobin. Pending signout will fluid analysis. Will keep the patient to monitor closely for acute bleeding. 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 we added diclofenic gel for left shoulder pain. Encouraged patient to take Tylenol for shoulder pain. All labs and orders were reviewed. Exam Vital Signs Temp Pulse Resp BP Pulse Ox O2 Del Method 97.2 F 71 17 117/58 L 99 Room Air 06/30/25 12:00 06/30/25 12:00 06/30/25 12:00 06/30/25 12:00 06/30/25 12:06/30/25 12:00 Narrative Exam General Appearance: Pt in no acute distress, lethargic but easily arousable, conversational ([place]i speaking). HEENT: NC/AT, no scleral icterus, no conjunctival pallor, MMM Lungs: CTAB, no wheezes or crackles appreciated CVS: RRR, S1/S2 heard, no murmurs or rubs appreciated ABD: Soft, non-tender, non-distended, BS + EXT: radial pulses 2+ BL, DP pulses 2 + BL SKIN: bruises on the lue/mid flank c/f hematoma violacious and deep maroon on the lateral scapula Neuro: A&O x 3. 5/5 in right upper and lower extremity. 5/5 to left lower extremity. proximal weakness of the lue, able to flex shoulder with passive range of motion, Psych: Appropriate mood and affect Objective Labs 06/30/25 04:52 06/30/25 04:52 Labs: Laboratory Results - last 24 hr 06/29/25 06/30/25 06/30/25 10:05 01:34 04:32 WBC RBC Hgb 8.1 L D Hct 23.8 L MCV MCH MCHC RDW Std Deviation Plt Count Neut % (Auto) Lymph % (Auto) [place] % (Auto) Eos % (Auto) Baso % (Auto) Neut # (Auto) Lymph # (Auto) [place] # (Auto) Eos # (Auto) Baso # (Auto) Immature Gran # (Auto) Absolute Nucleated RBC Immature Gran % Nucleated RBC % Sodium Potassium Chloride Carbon Dioxide Anion Gap BUN Creatinine Estim Creat Clear Calc eGFR BUN/Creatinine Ratio Glucose Calculated Osmolality Calcium Corrected Calcium Phosphorus Magnesium Total Bilirubin AST ALT Alkaline Phosphatase Total Protein Albumin Globulin Albumin/Globulin Ratio Prostate Specific Ag 17.48 H D Stool Occult Blood Blood Type O Positive Antibody Screen NEGATIVE Crossmatch See Detail Blood Bank Wristband ID Yes 06/30/25 06/30/25 04:52 09:53 WBC 6.6 RBC 2.97 L Hgb 8.2 L Hct 24.0 L MCV 81 MCH 27.6 MCHC 34.2 RDW Std Deviation 47.5 H Plt Count 193 Neut % (Auto) 69 Lymph % (Auto) 15 [place] % (Auto) 11 Eos % (Auto) 3 Baso % (Auto) 0 Neut # (Auto) 4.6 Lymph # (Auto) 1.0 [place] # (Auto) 0.7 Eos # (Auto) 0.2 Baso # (Auto) 0.0 Immature Gran # (Auto) 0.12 H Absolute Nucleated RBC 0.02 H Immature Gran % 2 H Nucleated RBC % 0 Sodium 137 Potassium 4.0 Chloride 104 Carbon Dioxide 22.0 Anion Gap 11 BUN 45 H Creatinine 1.4 H Estim Creat Clear Calc 46.6 L eGFR 51 L BUN/Creatinine Ratio 32 H Glucose 176 H Calculated Osmolality 289 Calcium 8.4 Corrected Calcium 8.6 Phosphorus 2.6 Magnesium 2.3 Total Bilirubin 1.2 AST 48 H ALT 22 Alkaline Phosphatase 102 Total Protein 6.2 Albumin 3.7 Globulin 2.5 Albumin/Globulin Ratio 1.5 Prostate Specific Ag Stool Occult Blood Negative Blood Type Antibody Screen Crossmatch Blood Bank Wristband ID Quality Measures Quality Measures stroke Suspected type of Stroke: Acute Ischemic (Right-sided) Last known well (date): 06/26/25 Tenecteplase given: within 60 min of arrival Rehab services: PT evaluation ordered VTE Prophylaxis: mechanical Antithrombotic by day 2:: not indicated (describe) Statin ordered: <75 y/o high intensity dose Anticoagulation ordered for A-fib or flutter (current or hx): not indicated Advance care planning discussed with:: patient Assessment & Plan Assessment Current Active Medications: Generic Name Dose Route Start Last Admin Trade Name Freq PRN Reason Stop Dose Admin Acetaminophen 650 mg 06/26/25 03:33 06/26/25 11:57 Acetaminophen 325 Mg Tablet PO 07/26/25 03:32 650 mg Q4HR PRN Administration PAIN SCALE 1-3 (mild Aspirin 81 mg 06/28/25 09:00 06/29/25 09:45 Aspirin Ec 81 Mg Tabec PO 07/28/25 08:59 81 mg On Hold: 06/29/25 11:55 QDAY PAULINA Administration Atorvastatin Calcium 80 mg 06/26/25 21:00 06/29/25 21:47 Atorvastatin Calcium 20 Mg Tablet PO 07/26/25 20:59 80 mg QPM PAULINA Administration Capsaicin 0 gm 06/26/25 09:11 06/30/25 05:06 Capsaicin Cr 60 Gm Tube TOP 07/26/25 07:14 1 appln TID PAULINA Administration Clopidogrel Bisulfate 75 mg 06/27/25 09:00 06/29/25 09:45 Clopidogrel Bisulfate 75 Mg Tablet PO 07/27/25 08:59 75 mg On Hold: 06/29/25 11:55 QDAY PAULINA Administration Dextrose 25 ml 06/26/25 03:43 Dextrose 50%-Water Inj 50 Ml Syringe IV 07/26/25 03:42 Q15MIN PRN BG 50-70 responsive npo pt Dextrose 50 ml 06/26/25 03:43 Dextrose 50%-Water Inj 50 Ml Syringe IV 07/26/25 03:42 Q15MIN PRN BG <50 OR BG <70 & pt unresponsive Gabapentin 100 mg 06/27/25 14:00 06/30/25 05:05 Gabapentin 100 Mg Capsule PO 07/27/25 13:59 100 mg TID PAULINA Administration Hydromorphone HCl 0.5 mg 06/26/25 04:35 06/28/25 09:23 Hydromorphone Inj 2 Mg/Ml Vial IVP 07/01/25 04:34 0.5 mg Q4HR PRN Administration severe pain 7-10 Piperacillin/Tazobactam/Dextrose 3.375 gm in 50 mls @ 100 mls/hr 06/29/25 08:45 06/30/25 12:27 Zosyn IV 07/06/25 08:44 100 mls/hr Q6HR PAULINA Administration Protocol Insulin Human Lispro 0 unit 06/28/25 10:02 06/30/25 12:24 Insulin Lispro (Admelog) 1 Unit/0.01 Ml Unit SC 07/27/25 07:29 Not Given ACHS PAULINA Protocol Labetalol HCl 10 mg 06/26/25 01:59 Labetalol Inj 5 Mg/Ml Vial 4 Ml IVP Q15M PRN hypertension Labetalol HCl 10 mg 06/26/25 02:13 Labetalol Inj 5 Mg/Ml Vial 4 Ml IVP PRNMRX1 PRN SBP > 185 mmHg and/or DBP > 110 Labetalol HCl 10 mg 06/26/25 02:13 Labetalol Inj 5 Mg/Ml Vial 4 Ml IVP PRNMRX1 PRN SBP > 180 mmHg or DBP > 105 Lactulose 20 gm 06/28/25 16:00 06/30/25 05:05 Lactulose Syrup 20 Gm/30 Ml Udc PO 07/28/25 15:59 20 gm TID PAULINA Administration Protocol Levothyroxine Sodium 125 mcg/ 150 mcg 06/28/25 09:15 06/30/25 05:05 Levothyroxine Sodium 25 mcg PO 07/28/25 09:14 150 mcg ACBR PAULINA Administration Lidocaine 1 patch 06/26/25 10:27 06/29/25 04:30 Lidocaine 5% 1 Patch TOP 07/26/25 10:26 1 patch UD PRN Administration PAIN Protocol Ondansetron HCl 4 mg 06/26/25 01:59 Ondansetron Inj 2 Mg/Ml Inj 2 Ml IVP 07/26/25 01:58 Q4HR PRN NAUSEA OR VOMITING Oxybutynin Chloride 5 mg 06/26/25 09:00 06/30/25 09:40 Oxybutynin Chlor 5 Mg Tablet PO 07/26/25 08:59 5 mg QDAY PAULINA Administration Sennosides 1 tab 06/28/25 16:00 06/30/25 09:39 Senna Tablet PO 07/28/25 15:59 1 tab QDAY PAULINA Administration Protocol Tamsulosin HCl 0.4 mg 06/26/25 09:00 06/30/25 09:41 Tamsulosin Hcl 0.4 Mg Capsule PO 07/26/25 08:59 0.4 mg QDAY PAULINA Administration Plan Razia is a 79-year-old male with past medical history significant for recent coronary artery stent placed in March currently on aspirin and Plavix, shingles, diabetes mellitus, hypertension, BPH, thyroidectomy who presented to the ED with new onset left-sided upper and lower extremity weakness and admitted to ICU for further monitoring status post TNK administration in the setting of possible acute ischemic stroke. 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 which is suspected to be 2/2 metastatic prostate cancer supported by patient's elevated PSA Dx: -06/[address] negative -06/26 head/neck CTA negative -06/26 echo negative for PFO -06/27 brain MRI negative for acute stroke but showed mild but definite dilatation of the extra-axial space overlying the frontal lobe convexities and anterior temporal lobes and [place] cistern region consistent w/ mild atrophy (ventricular system is also moderately dilated) -06/27 lumbar spine MRI w/o contrast showed heterogeneous marrow signal involving all lumbar vertebral bodies concerning for osseous metastatic disease as well as severe overall spinal stenosis of L4-L5 including mild bilateral L4 ganglionic compression -06/[address] 24HR s/p TNK per protocol negative -06/28 lumbar spine MRI w/ contrast planned, showed multiple foci of abnormal signal in the vertebral bodies again possibly suggestive of osteoblastic metastatic disease -PSA ordered, elevated at 17.48 Rx: -Outpatient follow-up for osteoblastic lesions seen on lumbar spine MRI (daughter has already made an appointment with Ortho) #Hx of CAD s/p recent PTCA of left ramus intermedius #Hx of HFrEF 50-55% #Hx of HTN #Hx of HLD Patient takes home aspirin, plavix, atorvastatin, Lasix, and benazepril Patient's last echo taken 11/27 showed stage I diastolic dysfunction with estimated EF 35-40% Dx: - 06/26/25 echocardiogram ordered, showed EF of 50 to 55% and grade 1 diastolic function dysfunction Rx: -Plavix 75 mg p.o. daily (being held) -Atorvastatin 80 mg p.o. nightly (being held) #DM type II- well controlled Patient is on Jardiance and Metformin Rx: ? ISS ? Closely monitor glucose level #h/o Hypothyroidism Rx: -Levothyroxine 150 mcg PO QAM #Left upper arm pain #Left shoulder joint hematoma 2/2 assisted fall i/s/o recent TNK administration, now s/p 06/29 joint aspiration Pertinent labs: D-dimer elevated 3000+ , XR L shoulder negative for acute fractures, L humerus xr without fracture or dislocation, DVT US negative In setting of TNK given and assisted fall to the ground Dx: ? Left shoulder MRI ordered, showed large joint effusion with complete chronic atrophy and degeneration and tear involving the tendons of the supraspinatus and infraspinatus muscles ? Soft tissue ultrasound of the left shoulder ordered, confirmed the presence of fluid in the joint space ? Joint fluid analysis ordered, showed ___ Rx: ? 06/29 left shoulder joint aspiration successfully performed, removing bloody fluid ? Diclofenac gel for left shoulder pain #Acute blood loss anemia 06/29 Hgb 8.1->6.7, steadily down-trending from 12.6 since admission on 06/26 Likely in part to hematoma but could be contributed to by other occult bleeding Dx: -FOBT ordered, negative Rx: -pRBC transfusion x 2 on 06/29 -Follow up on post-transfusion H&H -Cardiology and Neurology consulted, amenable to having aspirin and Plavix held for at least the next 2 days #ESBL UTI Patient found to have ESBL growing in his UCx on 06/29 Rx: -Zosyn 3.375 g IV Q6HR [06/28--] -s/p Rocephin #Post herpetic Neuralgia Hx shingles patient has had shingles 2 years ago, he states that he had flare up on his LUE and L lower abdomen, no signs of active flare on physical exam, he appears more somnolent, on exam, Rx: capsaicin cream, lidocaine patch, gabapentin 100 tid, hold for over-sedation Health Maintenance: DVT prophylaxis: Plavix (being held) GI prophylaxis: None Diet: Cardiac CODE STATUS: Full Code Disposition: Admitted to ICU for status post TNK administration in the setting of possible acute ischemic stroke, now downgraded from ICU to telemetry. Case discussed with my senior resident Dr. Salgado and my attending Dr. Michelle Zhong, DO PGY-1
[2025-06-30] MEDS: LIDOCAINE 5% 1 PATCH TOP (18:46)
[2025-06-30] MEDS: ATORVASTATIN CALCIUM 20 MG TABLET 80 MG PO (21:16)
[2025-07-01] VITALS (7 sets, daily range): BP systolic 100–118; BP diastolic 52–72; PULSE 64–84; RESP 16–17; TEMP 36.1–36.4; O2SAT 97–99; BMI 35.4
[2025-07-01] MEDS: PIPER/TAZO 3.375 GM PREMIX 3.375 GM/50 ML BAG IV ×4 (00:37→23:12)
[2025-07-01] MEDS: HYDROmorphone INJ 2 MG/ML VIAL 0.5 MG IVP (00:40)
[2025-07-01] MEDS: LACTULOSE SYRUP 20 GM/30 ML UDC PO (05:24)
[2025-07-01] MEDS: CAPSAICIN CR 60 GM TUBE TOP ×3 (05:24→21:12)
[2025-07-01] MEDS: LEVOTHYROXINE SODIUM 125 MCG, LEVOTHYROXINE SODIUM 25 MCG 150 MCG PO (05:24)
[2025-07-01] MEDS: GABAPENTIN 100 MG CAPSULE PO ×3 (05:24→21:11)
[2025-07-01 06:14] LABS: Basophils # (Auto) 0.0 Thou/mm3 (0.0-0.2); Basophils % (Auto) 0 % (0-2.5); Eosinophils # (Auto) 0.3 Thou/mm3 (0.0-0.5); Eosinophils % (Auto) 5 % (0-10); Hematocrit 25.9 % (41.0-53.0); Immature Granulocytes Auto 0.32 Thou/mm3 (0.00-0.00); Lymphocytes # (Auto) 1.4 Thou/mm3 (1.0-4.8); Lymphocytes % (Auto) 21 % (10-50); Mean Corpuscular HGB Conc 33.6 g/dl (31.0-37.0); Mean Corpuscular Hemoglobin 27.5 pg (25.0-35.0); Mean Corpuscular Volume 82 fL (80-100); Monocytes # (Auto) 0.7 Thou/mm3 (0.0-0.8); Monocytes % (Auto) 10 % (0-12); Neutrophils # (Auto) 3.9 Thou/mm3 (1.8-7.7); Neutrophils % (Auto) 59 % (37-80); Nucleated Red Blood Cell # 0.02 Thou/mm3 (0.00-0.00); Nucleated Red Blood Cell % 0 /100 WBC (0); Platelet Count 230 Thou/mm3 (140-440); RDW Standard Deviation 48.1 fL (35.1-43.9); Red Blood Count 3.16 Miln/mm3 (4.50-5.90); White Blood Count 6.7 Thou/mm3 (3.8-10.6)
[2025-07-01 06:16] LABS: Hemoglobin 8.7 g/dL (13.5-16.0)
[2025-07-01 06:25] LABS: INR 1.0 (0.9-1.3); Partial Thromboplastin Time 27.1 Seconds (22.0-36.0); Prothrombin Time 10.8 Seconds (9.0-12.2)
[2025-07-01 06:30] LABS: Alanine Aminotransferase 20 U/L (10-49); Albumin, Serum 3.6 gm/dL (3.4-4.8); Albumin/Globulin Ratio 1.5 (1.2-2.2); Alkaline Phosphatase 96 U/L (46-116); Anion Gap 12 (7-16); Aspartate Amino Transferase 34 U/L (0-34); BUN/Creatinine Ratio 26 Ratio (12-20); Bilirubin,Total 1.3 mg/dL (0.3-1.2); Blood Urea Nitrogen 36 mg/dL (9-23); Calcium 8.6 mg/dL (8.3-10.6); Calcium (Corrected) 8.9 mg/dL (8.5-10.1); Carbon Dioxide 22.8 mMol/L (20.0-31.0); Chloride 105 mMol/L (98-107); Creatinine (Component) 1.4 mg/dL (0.6-1.3); Estimated Creatinine Clearance 46.6 mL/min (>60); Globulin 2.4 gm/dL (2.3-3.5); Glucose 192 mg/dL (74-106); Magnesium 2.1 mg/dL (1.6-2.6); Osmolality,Calculated 292 (275-295); Phosphorous 2.6 mg/dL (2.4-5.1); Potassium 3.8 mMol/L (3.4-5.1); Sodium 140 mMol/L (136-145); Total Protein 6.0 gm/dL (5.7-8.2); eGFR 51 See Note
[2025-07-01] MEDS: INSULIN LISPRO (AdmeLOG) 1 UNIT/0.01 ML UNIT SC ×2 (07:30→20:22)
--- NOTE | 2025-07-01 09:16 | PC.SS ---
rounding note: Patient pending Neurology and Cardiology recs. Patient from home and is expected to return once stable.
[2025-07-01] MEDS: OXYBUTYNIN CHLOR 5 MG TABLET PO (09:54)
[2025-07-01] MEDS: TAMSULOSIN HCL 0.4 MG CAPSULE PO (09:54)
[2025-07-01] MEDS: INSULIN DEGLUDEC 5 UNIT/0.05 ML (PER 5 UNITS) 10 UNIT SC (09:55)
--- NOTE | 2025-07-01 13:28 | ESPR_ITS ---
Documentation for date of: 07/01/25 Subjective Subjective Interval history: Patient seen examined at bedside, no current complaints. Vitals and labs reviewed, hemoglobin stable. Okay to resume aspirin and Plavix from cardiology standpoint, currently follow- up with neurology. Exam Vital Signs Temp Pulse Resp BP Pulse Ox O2 Del Method 97.0 F 80 16 118/66 98 Room Air 07/01/25 12:00 07/01/25 12:00 07/01/25 12:00 07/01/25 12:00 07/01/25 12:00 07/01/25 12:00 Narrative Exam Physical Exam General: Awake and in no acute distress. Conversational and non-toxic appearing. HEENT: Normocephalic, atraumatic, mucous membranes moist. Heart: Regular rate and rhythm, no murmurs. Lungs: Clear to auscultation with no wheezing or crackles. Abdomen: Soft, nondistended, nontender, positive bowel sounds. ?No guarding or rebound tenderness. Neurologic: Alert and oriented x3, no gross neurological deficit, and patient able to move all 4 extremities. Extremities: No edema. Dressing noted left shoulder. Skin: No rash or ecchymoses. Objective Labs 07/01/25 04:50 07/01/25 04:50 Labs: Laboratory Results - last 24 hr 07/01/25 04:50 WBC 6.7 RBC 3.16 L Hgb 8.7 L Hct 25.9 L MCV 82 MCH 27.5 MCHC 33.6 RDW Std Deviation 48.1 H Plt Count 230 D Neut % (Auto) 59 Lymph % (Auto) 21 [place] % (Auto) 10 Eos % (Auto) 5 Baso % (Auto) 0 Neut # (Auto) 3.9 Lymph # (Auto) 1.4 [place] # (Auto) 0.7 Eos # (Auto) 0.3 Baso # (Auto) 0.0 Immature Gran # (Auto) 0.32 H Absolute Nucleated RBC 0.02 H Immature Gran % 5 H Nucleated RBC % 0 PT 10.8 INR 1.0 APTT 27.1 Sodium 140 Potassium 3.8 Chloride 105 Carbon Dioxide 22.8 Anion Gap 12 BUN 36 H Creatinine 1.4 H Estim Creat Clear Calc 46.6 L eGFR 51 L BUN/Creatinine Ratio 26 H Glucose 192 H Calculated Osmolality 292 Calcium 8.6 Corrected Calcium 8.9 Phosphorus 2.6 Magnesium 2.1 Total Bilirubin 1.3 H AST 34 ALT 20 Alkaline Phosphatase 96 Total Protein 6.0 Albumin 3.6 Globulin 2.4 Albumin/Globulin Ratio 1.5 Quality Measures Quality Measures stroke Suspected type of Stroke: Acute Ischemic (Right-sided) Last known well (date): 06/26/25 Tenecteplase given: within 60 min of arrival Rehab services: PT evaluation ordered and Speech Language Pathology eval ordered VTE Prophylaxis: not ordered Antithrombotic by day 2:: not indicated (describe) Statin ordered: not ordered Anticoagulation ordered for A-fib or flutter (current or hx): not indicated Advance care planning discussed with:: patient Assessment & Plan Assessment Current Active Medications: Generic Name Dose Route Start Last Admin Trade Name Freq PRN Reason Stop Dose Admin Acetaminophen 650 mg 06/26/25 03:33 06/26/25 11:57 Acetaminophen 325 Mg Tablet PO 07/26/25 03:32 650 mg Q4HR PRN Administration PAIN SCALE 1-3 (mild Aspirin 81 mg 06/28/25 09:00 06/29/25 09:45 Aspirin Ec 81 Mg Tabec PO 07/28/25 08:59 81 mg QDAY PAULINA Administration Atorvastatin Calcium 80 mg 06/26/25 21:00 06/30/25 21:16 Atorvastatin Calcium 20 Mg Tablet PO 07/26/25 20:59 80 mg QPM PAULINA Administration Capsaicin 0 gm 06/26/25 09:11 07/01/25 05:24 Capsaicin Cr 60 Gm Tube TOP 07/26/25 07:14 1 appln TID PAULINA Administration Clopidogrel Bisulfate 75 mg 06/27/25 09:00 06/29/25 09:45 Clopidogrel Bisulfate 75 Mg Tablet PO 07/27/25 08:59 75 mg On Hold: 06/29/25 11:55 QDAY PAULINA Administration Dextrose 25 ml 06/26/25 03:43 Dextrose 50%-Water Inj 50 Ml Syringe IV 07/26/25 03:42 Q15MIN PRN BG 50-70 responsive npo pt Dextrose 50 ml 06/26/25 03:43 Dextrose 50%-Water Inj 50 Ml Syringe IV 07/26/25 03:42 Q15MIN PRN BG <50 OR BG <70 & pt unresponsive Gabapentin 100 mg 06/27/25 14:00 07/01/25 05:24 Gabapentin 100 Mg Capsule PO 07/27/25 13:59 100 mg TID PAULINA Administration Piperacillin/Tazobactam/Dextrose 3.375 gm in 50 mls @ 100 mls/hr 06/29/25 08:45 07/01/25 12:41 Zosyn IV 07/06/25 08:44 100 mls/hr Q6HR PAULINA Administration Protocol Insulin Degludec 10 unit 07/01/25 09:00 07/01/25 09:55 Insulin Degludec 5 Unit/0.05 Ml (Per 5 Units) SC 07/31/25 08:59 10 unit QDAY PAULINA Administration Insulin Human Lispro 0 unit 06/28/25 10:02 07/01/25 12:46 Insulin Lispro (Admelog) 1 Unit/0.01 Ml Unit SC 07/27/25 07:29 Not Given ACHS [facility] Protocol Labetalol HCl 10 mg 06/26/25 01:59 Labetalol Inj 5 Mg/Ml Vial 4 Ml IVP Q15M PRN hypertension Lactulose 20 gm 06/28/25 16:00 07/01/25 05:24 Lactulose Syrup 20 Gm/30 Ml Udc PO 07/28/25 15:59 20 gm TID PAULINA Administration Protocol Levothyroxine Sodium 125 mcg/ 150 mcg 06/28/25 09:15 07/01/25 05:24 Levothyroxine Sodium 25 mcg PO 07/28/25 09:14 150 mcg ACBR PAULINA Administration Lidocaine 1 patch 06/30/25 18:29 06/30/25 18:46 Lidocaine 5% 1 Patch TOP 07/30/25 18:28 1 patch UD PRN Administration local shoulder pain 1-3 Protocol Ondansetron HCl 4 mg 06/26/25 01:59 Ondansetron Inj 2 Mg/Ml Inj 2 Ml IVP 07/26/25 01:58 Q4HR PRN NAUSEA OR VOMITING Oxybutynin Chloride 5 mg 06/26/25 09:00 07/01/25 09:54 Oxybutynin Chlor 5 Mg Tablet PO 07/26/25 08:59 5 mg QDAY [facility] Administration Sennosides 1 tab 06/28/25 16:00 07/01/25 09:54 Senna Tablet PO 07/28/25 15:59 1 tab QDAY [facility] Administration Protocol Tamsulosin HCl 0.4 mg 06/26/25 09:00 07/01/25 09:54 Tamsulosin Hcl 0.4 Mg Capsule PO 07/26/25 08:59 0.4 mg QDAY PAULINA Administration Plan Assessment and plan: Summary: Razia is a 79-year-old male with past medical history significant for recent coronary artery stent placed in March currently on aspirin and Plavix, shingles, diabetes mellitus, hypertension, BPH, thyroidectomy who presented to the ED with new onset left-sided upper and lower extremity weakness and admitted to ICU for further monitoring status post TNK administration in the setting of possible acute ischemic stroke. #Coronary artery disease, status post PCI LAD, RCA and recent PCI 04/05/2025 ramus intermedius #History of heart failure with reduced ejection fraction, EF 30 to 35% now improved to 50 to 55% #Hypertension, hyperlipidemia, by history Previous coronary stent placement in LAD, RCA who recently had angina pectoris and underwent stent placement in ramus intermedius on 04/05/2025. He has been on dual antiplatelet drug therapy, aspirin 81 mg daily and clopidogrel 75 mg daily, along with statin 40 mg atorvastatin and benazepril for hypertension and Lasix 40 mg daily. Patient's last echo taken 11/27 showed stage I diastolic dysfunction with estimated EF 35-40% Triglycerides 133, cholesterol 193, LDL 120, HDL 46. -ECHO (06/26/2025): 1. Left ventricle size is normal and systolic function is moderately reduced. Estimated ejection fraction is 50-55%. There is grade I diastolic dysfunction. 2. Right ventricle chamber size is normal and systolic function is normal. Estimated RVSP is 7 mmHg. 3. Trace MR, TR, AI. 4. The left atrium is normal. The right atrium is normal. 5. Normal IVC with estimated RA pressure 3 mmHg. 6. No evidence of PFO. Negative bubble study. Recommendations: - Resume aspirin and Plavix, can be resumed from cardiology standpoint please follow-up with neurology prior to resuming. - Continue atorvastatin 80 mg at bedtime #Left supraspinatus and infraspinatus tear #Left-sided upper and lower weakness S/p TNK administration 06/26/25 #Status post left shoulder aspiration 06/29 #DM type II- well controlled #Hypothyroidism #Left upper arm pain #Post herpetic Neuralgia -Management per Primary Hospitalist team Thank you for the consult and allowing to participate in the care of the patient. Cardiology will continue to follow. Case discussed with Attending Physician Dr. Juventino Birmingham MD Internal Medicine PGY-2 Disclaimer: This note was dictated by speech recognition. Minor errors in game room attendant may be present due to voice recognition software. Attending Provider Attestation/Addendum I have personally seen and examined the patient separately on the above date of service and discussed the plan of care with the resident. I reviewed the resident Dr. Kami Birmingham consultation progress note and agree with the resident findings and plan in the note above and have also edited the documentation to reflect my findings and plan. Juventino Kenney M.D. Interventional Cardiology
--- NOTE | 2025-07-01 13:29 | ESPR_ITS ---
<Statement entered by Yakov Kim MD - 07/02/25 15:59> Patient was seen and examined at bedside. I agree in the assessment and plan on this note. - Patient's plan and care discussed with my attending, Dr. Aisha Kim MD Internal Medicine PGY-3 Documentation for date of: 07/01/25 Subjective Subjective Interval history: No acute overnight events. Patient seen assessed at bedside. No complaints this morning. Hgb stable. Restart ASA per cardiology, continue to hold Plavix in setting of anemia. Left shoulder aspiration fluid positive for GPCs on culture, stain showed 1+ WBCs. Pending final results tomorrow morning per lab. Continue Zosyn for ESBL UTI. Spoke with daughter regarding need to follow up with urology outpatient for possible prostate cancer, given elevated PSA. Exam Vital Signs Temp Pulse Resp BP Pulse Ox O2 Del Method 97.0 F 80 16 118/66 98 Room Air 07/01/25 12:00 07/01/25 12:00 07/01/25 12:00 07/01/25 12:00 07/01/25 12:00 07/01/25 12:00 Narrative Exam General Appearance: Pt in no acute distress, lethargic but easily arousable, conversational ([place] speaking). HEENT: NC/AT, no scleral icterus, no conjunctival pallor, MMM Lungs: CTAB, no wheezes or crackles appreciated CVS: RRR, S1/S2 heard, no murmurs or rubs appreciated ABD: Soft, non-tender, non-distended, BS + EXT: radial pulses 2+ BL, DP pulses 2 + BL SKIN: bruises on the lue/mid flank c/f hematoma violacious and deep maroon on the lateral scapula Neuro: A&O x 3. 5/5 in right upper and lower extremity. 5/5 to left lower extremity. proximal weakness of the lue, able to flex shoulder with passive range of motion, Psych: Appropriate mood and affect Objective Labs 07/02/25 04:38 07/02/25 04:38 Labs: Laboratory Results - last 24 hr 07/01/25 04:50 WBC 6.7 RBC 3.16 L Hgb 8.7 L Hct 25.9 L MCV 82 MCH 27.5 MCHC 33.6 RDW Std Deviation 48.1 H Plt Count 230 D Neut % (Auto) 59 Lymph % (Auto) 21 [place] % (Auto) 10 Eos % (Auto) 5 Baso % (Auto) 0 Neut # (Auto) 3.9 Lymph # (Auto) 1.4 [place] # (Auto) 0.7 Eos # (Auto) 0.3 Baso # (Auto) 0.0 Immature Gran # (Auto) 0.32 H Absolute Nucleated RBC 0.02 H Immature Gran % 5 H Nucleated RBC % 0 PT 10.8 INR 1.0 APTT 27.1 Sodium 140 Potassium 3.8 Chloride 105 Carbon Dioxide 22.8 Anion Gap 12 BUN 36 H Creatinine 1.4 H Estim Creat Clear Calc 46.6 L eGFR 51 L BUN/Creatinine Ratio 26 H Glucose 192 H Calculated Osmolality 292 Calcium 8.6 Corrected Calcium 8.9 Phosphorus 2.6 Magnesium 2.1 Total Bilirubin 1.3 H AST 34 ALT 20 Alkaline Phosphatase 96 Total Protein 6.0 Albumin 3.6 Globulin 2.4 Albumin/Globulin Ratio 1.5 Quality Measures Quality Measures stroke Suspected type of Stroke: Acute Ischemic (Right-sided) Last known well (date): 06/26/25 Tenecteplase given: within 60 min of arrival Rehab services: PT evaluation ordered (not needed) VTE Prophylaxis: pharmaceutical Antithrombotic by day 2:: ordered Statin ordered: >75 y/o moderate or high intensity dose Anticoagulation ordered for A-fib or flutter (current or hx): ordered (held due to concern for acute bleed) Advance care planning discussed with:: child Assessment & Plan Assessment Current Active Medications: Generic Name Dose Route Start Last Admin Trade Name Jasonq PRN Reason Stop Dose Admin Acetaminophen 650 mg 06/26/25 03:33 06/26/25 11:57 Acetaminophen 325 Mg Tablet PO 07/26/25 03:32 650 mg Q4HR PRN Administration PAIN SCALE 1-3 (mild Aspirin 81 mg 06/28/25 09:00 06/29/25 09:45 Aspirin Ec 81 Mg Tabec PO 07/28/25 08:59 81 mg QDAY PAULINA Administration Atorvastatin Calcium 80 mg 06/26/25 21:00 06/30/25 21:16 Atorvastatin Calcium 20 Mg Tablet PO 07/26/25 20:59 80 mg QPM PAULINA Administration Capsaicin 0 gm 06/26/25 09:11 07/01/25 05:24 Capsaicin Cr 60 Gm Tube TOP 07/26/25 07:14 1 appln TID PAULINA Administration Clopidogrel Bisulfate 75 mg 06/27/25 09:00 06/29/25 09:45 Clopidogrel Bisulfate 75 Mg Tablet PO 07/27/25 08:59 75 mg On Hold: 06/29/25 11:55 QDAY PAULINA Administration Dextrose 25 ml 06/26/25 03:43 Dextrose 50%-Water Inj 50 Ml Syringe IV 07/26/25 03:42 Q15MIN PRN BG 50-70 responsive npo pt Dextrose 50 ml 06/26/25 03:43 Dextrose 50%-Water Inj 50 Ml Syringe IV 07/26/25 03:42 Q15MIN PRN BG <50 OR BG <70 & pt unresponsive Gabapentin 100 mg 06/27/25 14:00 07/01/25 05:24 Gabapentin 100 Mg Capsule PO 07/27/25 13:59 100 mg TID PAULINA Administration Piperacillin/Tazobactam/Dextrose 3.375 gm in 50 mls @ 100 mls/hr 06/29/25 08:45 07/01/25 12:41 Zosyn IV 07/06/25 08:44 100 mls/hr Q6HR PAULINA Administration Protocol Insulin Degludec 10 unit 07/01/25 09:00 07/01/25 09:55 Insulin Degludec 5 Unit/0.05 Ml (Per 5 Units) SC 07/31/25 08:59 10 unit QDAY PAULINA Administration Insulin Human Lispro 0 unit 06/28/25 10:02 07/01/25 12:46 Insulin Lispro (Admelog) 1 Unit/0.01 Ml Unit SC 07/27/25 07:29 Not Given ACHS PAULINA Protocol Labetalol HCl 10 mg 06/26/25 01:59 Labetalol Inj 5 Mg/Ml Vial 4 Ml IVP Q15M PRN hypertension Lactulose 20 gm 06/28/25 16:00 07/01/25 05:24 Lactulose Syrup 20 Gm/30 Ml Udc PO 07/28/25 15:59 20 gm TID PAULINA Administration Protocol Levothyroxine Sodium 125 mcg/ 150 mcg 06/28/25 09:15 07/01/25 05:24 Levothyroxine Sodium 25 mcg PO 07/28/25 09:14 150 mcg ACBR PAULINA Administration Lidocaine 1 patch 06/30/25 18:29 06/30/25 18:46 Lidocaine 5% 1 Patch TOP 07/30/25 18:28 1 patch UD PRN Administration local shoulder pain 1-3 Protocol Ondansetron HCl 4 mg 06/26/25 01:59 Ondansetron Inj 2 Mg/Ml Inj 2 Ml IVP 07/26/25 01:58 Q4HR PRN NAUSEA OR VOMITING Oxybutynin Chloride 5 mg 06/26/25 09:00 07/01/25 09:54 Oxybutynin Chlor 5 Mg Tablet PO 07/26/25 08:59 5 mg QDAY PAULINA Administration Sennosides 1 tab 06/28/25 16:00 07/01/25 09:54 Senna Tablet PO 07/28/25 15:59 1 tab QDAY PAULINA Administration Protocol Tamsulosin HCl 0.4 mg 06/26/25 09:00 07/01/25 09:54 Tamsulosin Hcl 0.4 Mg Capsule PO 07/26/25 08:59 0.4 mg QDAY PAULINA Administration Plan Razia is a 79-year-old male with past medical history significant for recent coronary artery stent placed in March currently on aspirin and Plavix, shingles, diabetes mellitus, hypertension, BPH, thyroidectomy who presented to the ED with new onset left-sided upper and lower extremity weakness and admitted to ICU for further monitoring status post TNK administration in the setting of possible acute ischemic stroke. 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 which is suspected to be 2/2 metastatic prostate cancer supported by patient's elevated PSA Dx: -06/[address] negative -06/26 head/neck CTA negative -06/26 echo negative for PFO -06/27 brain MRI negative for acute stroke but showed mild but definite dilatation of the extra-axial space overlying the frontal lobe convexities and anterior temporal lobes and [place]tern region consistent w/ mild atrophy (ventricular system is also moderately dilated) -06/27 lumbar spine MRI w/o contrast showed heterogeneous marrow signal involving all lumbar vertebral bodies concerning for osseous metastatic disease as well as severe overall spinal stenosis of L4-L5 including mild bilateral L4 ganglionic compression -06/[address] 24HR s/p TNK per protocol negative -06/28 lumbar spine MRI w/ contrast planned, showed multiple foci of abnormal signal in the vertebral bodies again possibly suggestive of osteoblastic metastatic disease -PSA ordered, elevated at 17.48 Rx: -Outpatient follow-up for osteoblastic lesions seen on lumbar spine MRI (daughter has already made an appointment with Ortho) - Discussed with daughter possibility of prostate cancer given elevated PSA and bone lesion. Recommended outpatient follow up with urologist. #Hx of CAD s/p recent PTCA of left ramus intermedius #Hx of HFrEF 50-55% #Hx of HTN #Hx of HLD Patient takes home aspirin, plavix, atorvastatin, Lasix, and benazepril Patient's last echo taken 11/27 showed stage I diastolic dysfunction with estimated EF 35-40% Dx: - 06/26/25 echocardiogram ordered, showed EF of 50 to 55% and grade 1 diastolic function dysfunction Rx: -Plavix 75 mg p.o. daily (being held) -Atorvastatin 80 mg p.o. nightly #DM type II- well controlled Patient is on Jardiance and Metformin Rx: ? ISS ? Closely monitor glucose level #h/o Hypothyroidism Rx: -Levothyroxine 150 mcg PO QAM #Left upper arm pain #Left shoulder joint hematoma 2/2 assisted fall i/s/o recent TNK administration, now s/p 06/29 joint aspiration Pertinent labs: D-dimer elevated 3000+ , XR L shoulder negative for acute fractures, L humerus xr without fracture or dislocation, DVT US negative In setting of TNK given and assisted fall to the ground Dx: ? Left shoulder MRI ordered, showed large joint effusion with complete chronic atrophy and degeneration and tear involving the tendons of the supraspinatus and infraspinatus muscles ? Soft tissue ultrasound of the left shoulder ordered, confirmed the presence of fluid in the joint space ? Joint fluid analysis ordered, showed ___ Rx: ? 06/29 left shoulder joint aspiration successfully performed, removing bloody fluid ? Diclofenac gel for left shoulder pain #Acute blood loss anemia 06/29 Hgb 8.1->6.7, steadily down-trending from 12.6 since admission on 06/26 Likely in part to hematoma but could be contributed to by other occult bleeding Dx: -FOBT ordered, negative Rx: -pRBC transfusion x 2 on 06/29 -Follow up on post-transfusion H&H -Cardiology and Neurology consulted, amenable to having aspirin and Plavix held for at least the next 2 days #ESBL UTI Patient found to have ESBL growing in his UCx on 06/29 Rx: -Zosyn 3.375 g IV Q6HR [06/28--] -s/p Rocephin #Post herpetic Neuralgia Hx shingles patient has had shingles 2 years ago, he states that he had flare up on his LUE and L lower abdomen, no signs of active flare on physical exam, he appears more somnolent, on exam, Rx: capsaicin cream, lidocaine patch, gabapentin 100 tid, hold for over-sedation Health Maintenance: DVT prophylaxis: Plavix (being held) GI prophylaxis: None Diet: Cardiac CODE STATUS: Full Code Disposition: Admitted to ICU for status post TNK administration in the setting of possible acute ischemic stroke, now downgraded from ICU to telemetry. Patient plan of care was discussed with the senior resident, Dr. Kim, and the attending physician, Dr. Leonard. Sharon Arias DO, PGY-1 Attending Provider Attestation/Addendum I have discussed and was present for the essential components of the history, physical examination, diagnosis, and treatment plan with the resident. I agree with the patient's care as documented by the resident and amended herein by me. Arias Leonard DO. Although this document has been carefully reviewed, there may still be some phonetic and other typographical errors. These errors are purely grammatical due to imperfections in the software program and should not be construed in any way to compromise the substance of the patient's medical care during this visit.
[2025-07-01 14:49] LABS: C-Reactive Protein 4.2 mg/dL (0.0-0.9)
[2025-07-01 18:15] LABS: Sed Rate (ESR) 72 mm/hr (0-20)
--- NOTE | 2025-07-01 19:10 | PD.VPROG1 ---
Telemedicine visit statement This visit was conducted with the use of interactive audio and video telecommunications system that permits real time communication between the patient and the provider. Patient's verbal consent for virtual visit was obtained on 07/01/25 at 1910. Documentation for date of: 07/01/25 Subjective Subjective Interval history: Patient is in medsurg, continues to have restricted ROM in the left shoulder with pain in the left UE. Left LE weakness is better to the point of walking with PT. Virtual exam Vital Signs Temp Pulse Resp BP Pulse Ox O2 Del Method 97.2 F 72 17 110/56 L 98 Room Air 07/01/25 16:00 07/01/25 16:00 07/01/25 16:00 07/01/25 16:00 07/01/25 16:00 07/01/25 16:00 Objective Labs 07/01/25 04:50 07/01/25 04:50 Labs: Laboratory Results - last 24 hr 07/01/25 07/01/25 04:50 14:23 WBC 6.7 RBC 3.16 L Hgb 8.7 L Hct 25.9 L MCV 82 MCH 27.5 MCHC 33.6 RDW Std Deviation 48.1 H Plt Count 230 D Neut % (Auto) 59 Lymph % (Auto) 21 [place] % (Auto) 10 Eos % (Auto) 5 Baso % (Auto) 0 Neut # (Auto) 3.9 Lymph # (Auto) 1.4 [place] # (Auto) 0.7 Eos # (Auto) 0.3 Baso # (Auto) 0.0 Immature Gran # (Auto) 0.32 H Absolute Nucleated RBC 0.02 H Immature Gran % 5 H Nucleated RBC % 0 ESR 72 H PT 10.8 INR 1.0 APTT 27.1 Sodium 140 Potassium 3.8 Chloride 105 Carbon Dioxide 22.8 Anion Gap 12 BUN 36 H Creatinine 1.4 H Estim Creat Clear Calc 46.6 L eGFR 51 L BUN/Creatinine Ratio 26 H Glucose 192 H Calculated Osmolality 292 Calcium 8.6 Corrected Calcium 8.9 Phosphorus 2.6 Magnesium 2.1 Total Bilirubin 1.3 H AST 34 ALT 20 Alkaline Phosphatase 96 C-Reactive Prot, Quant 4.2 H Total Protein 6.0 Albumin 3.6 Globulin 2.4 Albumin/Globulin Ratio 1.5 Assessment & Plan Problem List (1) Ischemic cerebrovascular accident (CVA): Status: Ruled-out Assessment and plan: s/p thrombolytics No changes in the symptoms MRI brain negative for acute infarction. Holding DAPT sec to hematoma in the left shoulder s/p drainage under US guidance. Waiting for culture results. continue with statin as he was on it for CAD s/p stent placement recently (2) Lumbar spinal stenosis: Status: Chronic Assessment and plan: continue with conservative measures, might benefit from PT and pain management intervention. contrasted LS MRI findings: reviewed. continue with GP (3) Shoulder pain, left: Status: Acute Assessment and plan: s/p drainage of hematoma fu with culture results.
[2025-07-01] MEDS: ATORVASTATIN CALCIUM 20 MG TABLET 80 MG PO (20:22)
[2025-07-02] VITALS: BP 93/60; PULSE 78; RESP 18; TEMP 36.5; O2SAT 97
[2025-07-02 04:00] VITALS: BP 118/67; PULSE 82; RESP 19; TEMP 36.3; O2SAT 98
[2025-07-02] MEDS: PIPER/TAZO 3.375 GM PREMIX 3.375 GM/50 ML BAG IV (05:22)
[2025-07-02] MEDS: GABAPENTIN 100 MG CAPSULE PO (05:23)
[2025-07-02] MEDS: LEVOTHYROXINE SODIUM 125 MCG, LEVOTHYROXINE SODIUM 25 MCG 150 MCG PO (05:23)
[2025-07-02] MEDS: CAPSAICIN CR 60 GM TUBE TOP (05:26)
[2025-07-02 06:00] VITALS: BMI 35.3
[2025-07-02 06:11] LABS: Basophils # (Auto) 0.0 Thou/mm3 (0.0-0.2); Basophils % (Auto) 1 % (0-2.5); Eosinophils # (Auto) 0.3 Thou/mm3 (0.0-0.5); Eosinophils % (Auto) 4 % (0-10); Hematocrit 27.6 % (41.0-53.0); Hemoglobin 9.2 g/dL (13.5-16.0); Immature Granulocytes Auto 0.56 Thou/mm3 (0.00-0.00); Lymphocytes # (Auto) 1.7 Thou/mm3 (1.0-4.8); Lymphocytes % (Auto) 21 % (10-50); Mean Corpuscular HGB Conc 33.3 g/dl (31.0-37.0); Mean Corpuscular Hemoglobin 28.0 pg (25.0-35.0); Mean Corpuscular Volume 84 fL (80-100); Monocytes # (Auto) 0.7 Thou/mm3 (0.0-0.8); Monocytes % (Auto) 9 % (0-12); Neutrophils # (Auto) 4.7 Thou/mm3 (1.8-7.7); Neutrophils % (Auto) 58 % (37-80); Nucleated Red Blood Cell # 0.00 Thou/mm3 (0.00-0.00); Nucleated Red Blood Cell % 0 /100 WBC (0); Platelet Count 281 Thou/mm3 (140-440); RDW Standard Deviation 48.3 fL (35.1-43.9); Red Blood Count 3.29 Miln/mm3 (4.50-5.90); White Blood Count 8.0 Thou/mm3 (3.8-10.6)
[2025-07-02 06:32] LABS: Alanine Aminotransferase 22 U/L (10-49); Albumin, Serum 3.6 gm/dL (3.4-4.8); Albumin/Globulin Ratio 1.4 (1.2-2.2); Alkaline Phosphatase 104 U/L (46-116); Anion Gap 12 (7-16); Aspartate Amino Transferase 35 U/L (0-34); BUN/Creatinine Ratio 22 Ratio (12-20); Bilirubin,Total 1.3 mg/dL (0.3-1.2); Blood Urea Nitrogen 28 mg/dL (9-23); Calcium 8.4 mg/dL (8.3-10.6); Calcium (Corrected) 8.7 mg/dL (8.5-10.1); Carbon Dioxide 22.5 mMol/L (20.0-31.0); Chloride 109 mMol/L (98-107); Creatinine (Component) 1.3 mg/dL (0.6-1.3); Estimated Creatinine Clearance 50.2 mL/min (>60); Globulin 2.5 gm/dL (2.3-3.5); Glucose 131 mg/dL (74-106); Magnesium 2.0 mg/dL (1.6-2.6); Osmolality,Calculated 292 (275-295); Phosphorous 2.8 mg/dL (2.4-5.1); Potassium 4.2 mMol/L (3.4-5.1); Sodium 143 mMol/L (136-145); Total Protein 6.1 gm/dL (5.7-8.2); eGFR 56 See Note
--- NOTE | 2025-07-02 06:35 | PC.NURSE ---
Patient refused to take his lactulose medication now but stated that he may want it later. Explained to him that his lactulose is scheduled for three times a day and can ask the nurse if she wants it later.
--- NOTE | 2025-07-02 06:41 | PC.NURSE ---
crm technical lead called this nurse around 638 am stating that patient had 2nd degree heart block and heart rate went to as low as 43, but back to 74 still 2nd deg heart block. ( ) made aware.
[2025-07-02 07:47] VITALS: BP 120/65; PULSE 72; RESP 19; TEMP 36.3; O2SAT 98
--- NOTE | 2025-07-02 08:02 | EKG_ITS ---
[facility] Test Date: 2025-07-02 Pat Name: JAIDEN TRAORE Department: Room: S358A Gender: Male [employer] Supervisor: BENNY : 1945 Requested By: Yakov Kim Order Number: [id number] Reading MD: Yakov Kim Measurements Intervals Pillow Rate: 73 P: 16 PA: 281 QRS: -48 QRSD: 102 T: -28 QT: 379 QTc: 419 Interpretive Statements SINUS RHYTHM WITH FIRST DEGREE AV BLOCK PATTERN CONSISTENT WITH PULMONARY DISEASE INFERIOR MYOCARDIAL INFARCTION , OF INDETERMINATE AGE Compared to ECG 06/29/2025 04:55:04 First degree AV block now present Myocardial infarct finding still present /[id number]
--- NOTE | 2025-07-02 08:49 | PD.RESPRO ---
Documentation for date of: 07/02/25 Subjective Subjective Interval history: Patient seen examined at bedside, no current complaints. Vitals and labs reviewed, hemoglobin stable. Resume aspirin and Plavix. Exam Vital Signs Temp Pulse Resp BP Pulse Ox O2 Del Method 97.3 F 72 19 120/65 98 Room Air 07/02/25 07:47 07/02/25 07:47 07/02/25 07:47 07/02/25 07:47 07/02/25 07:47 07/02/25 07:47 Narrative Exam Physical Exam General: Awake and in no acute distress. Conversational and non-toxic appearing. HEENT: Normocephalic, atraumatic, mucous membranes moist. Heart: Regular rate and rhythm, no murmurs. Lungs: Clear to auscultation with no wheezing or crackles. Abdomen: Soft, nondistended, nontender, positive bowel sounds. ?No guarding or rebound tenderness. Neurologic: Alert and oriented x3, no gross neurological deficit, and patient able to move all 4 extremities. Extremities: No edema. Dressing noted left shoulder. Skin: No rash or ecchymoses. Objective Labs 07/02/25 04:38 07/02/25 04:38 Labs: Laboratory Results - last 24 hr 07/01/25 07/02/25 14:23 04:38 WBC 8.0 RBC 3.29 L Hgb 9.2 L Hct 27.6 L MCV 84 MCH 28.0 MCHC 33.3 RDW Std Deviation 48.3 H Plt Count 281 D Neut % (Auto) 58 Lymph % (Auto) 21 Hamblen % (Auto) 9 Eos % (Auto) 4 Baso % (Auto) 1 Neut # (Auto) 4.7 Lymph # (Auto) 1.7 Hamblen # (Auto) 0.7 Eos # (Auto) 0.3 Baso # (Auto) 0.0 Immature Gran # (Auto) 0.56 H Absolute Nucleated RBC 0.00 Immature Gran % 7 H Nucleated RBC % 0 ESR 72 H Sodium 143 Potassium 4.2 Chloride 109 H Carbon Dioxide 22.5 Anion Gap 12 BUN 28 H Creatinine 1.3 Estim Creat Clear Calc 50.2 L eGFR 56 L BUN/Creatinine Ratio 22 H Glucose 131 H D Calculated Osmolality 292 Calcium 8.4 Corrected Calcium 8.7 Phosphorus 2.8 Magnesium 2.0 Total Bilirubin 1.3 H AST 35 H ALT 22 Alkaline Phosphatase 104 C-Reactive Prot, Quant 4.2 H Total Protein 6.1 Albumin 3.6 Globulin 2.5 Albumin/Globulin Ratio 1.4 Quality Measures Quality Measures stroke Suspected type of Stroke: Acute Ischemic (Right-sided) Last known well (date): 06/26/25 Tenecteplase given: within 60 min of arrival Rehab services: PT evaluation ordered and Speech Language Pathology eval ordered VTE Prophylaxis: not ordered (Not primary team, see their note for details) Antithrombotic by day 2:: not indicated (describe) (Not primary team, see their note for details) Statin ordered: >75 y/o moderate or high intensity dose Anticoagulation ordered for A-fib or flutter (current or hx): not indicated Advance care planning discussed with:: patient Assessment & Plan Assessment Current Active Medications: Generic Name Dose Route Start Last Admin Trade Name Freq PRN Reason Stop Dose Admin Acetaminophen 650 mg 06/26/25 03:33 06/26/25 11:57 Acetaminophen 325 Mg Tablet PO 07/26/25 03:32 650 mg Q4HR PRN Administration PAIN SCALE 1-3 (mild Aspirin 81 mg 06/28/25 09:00 06/29/25 09:45 Aspirin Ec 81 Mg Tabec PO 07/28/25 08:59 81 mg QDAY PAULINA Administration Atorvastatin Calcium 80 mg 06/26/25 21:00 07/01/25 20:22 Atorvastatin Calcium 20 Mg Tablet PO 07/26/25 20:59 80 mg QPM PAULINA Administration Capsaicin 0 gm 06/26/25 09:11 07/02/25 05:26 Capsaicin Cr 60 Gm Tube TOP 07/26/25 07:14 1 appln TID PAULINA Administration Clopidogrel Bisulfate 75 mg 06/27/25 09:00 06/29/25 09:45 Clopidogrel Bisulfate 75 Mg Tablet PO 07/27/25 08:59 75 mg On Hold: 06/29/25 11:55 QDAY PAULINA Administration Dextrose 25 ml 06/26/25 03:43 Dextrose 50%-Water Inj 50 Ml Syringe IV 07/26/25 03:42 Q15MIN PRN BG 50-70 responsive npo pt Dextrose 50 ml 06/26/25 03:43 Dextrose 50%-Water Inj 50 Ml Syringe IV 07/26/25 03:42 Q15MIN PRN BG <50 OR BG <70 & pt unresponsive Gabapentin 100 mg 06/27/25 14:00 07/02/25 05:23 Gabapentin 100 Mg Capsule PO 07/27/25 13:59 100 mg TID PAULINA Administration Piperacillin/Tazobactam/Dextrose 3.375 gm in 50 mls @ 100 mls/hr 07/02/25 00:00 07/02/25 05:22 Zosyn IV 07/06/25 08:44 100 mls/hr Q6HR PAULINA Administration Protocol Insulin Degludec 10 unit 07/01/25 09:00 07/01/25 09:55 Insulin Degludec 5 Unit/0.05 Ml (Per 5 Units) SC 07/31/25 08:59 10 unit QDAY PAULINA Administration Insulin Human Lispro 0 unit 06/28/25 10:02 07/01/25 20:22 Insulin Lispro (Admelog) 1 Unit/0.01 Ml Unit SC 07/27/25 07:29 2 unit ACHS PAULINA Administration Protocol Labetalol HCl 10 mg 06/26/25 01:59 Labetalol Inj 5 Mg/Ml Vial 4 Ml IVP Q15M PRN hypertension Lactulose 20 gm 06/28/25 16:00 07/02/25 07:20 Lactulose Syrup 20 Gm/30 Ml Udc PO 07/28/25 15:59 Not Given On Hold: 07/02/25 08:01 TID [facility] Protocol Levothyroxine Sodium 125 mcg/ 150 mcg 06/28/25 09:15 07/02/25 05:23 Levothyroxine Sodium 25 mcg PO 07/28/25 09:14 150 mcg ACBR PAULINA Administration Lidocaine 1 patch 06/30/25 18:29 06/30/25 18:46 Lidocaine 5% 1 Patch TOP 07/30/25 18:28 1 patch UD PRN Administration local shoulder pain 1-3 Protocol Ondansetron HCl 4 mg 06/26/25 01:59 Ondansetron Inj 2 Mg/Ml Inj 2 Ml IVP 07/26/25 01:58 Q4HR PRN NAUSEA OR VOMITING Oxybutynin Chloride 5 mg 06/26/25 09:00 07/01/25 09:54 Oxybutynin Chlor 5 Mg Tablet PO 07/26/25 08:59 5 mg QDAY PAULINA Administration Sennosides 1 tab 06/28/25 16:00 07/01/25 09:54 Senna Tablet PO 07/28/25 15:59 1 tab QDAY PAULINA Administration Protocol Tamsulosin HCl 0.4 mg 06/26/25 09:00 07/01/25 09:54 Tamsulosin Hcl 0.4 Mg Capsule PO 07/26/25 08:59 0.4 mg QDAY PAULINA Administration Plan Assessment and plan: Summary: Razia is a 79-year-old male with past medical history significant for recent coronary artery stent placed in March currently on aspirin and Plavix, shingles, diabetes mellitus, hypertension, BPH, thyroidectomy who presented to the ED with new onset left-sided upper and lower extremity weakness and admitted to ICU for further monitoring status post TNK administration in the setting of possible acute ischemic stroke. #Coronary artery disease, status post PCI LAD, RCA and recent PCI 04/05/2025 ramus intermedius #History of heart failure with reduced ejection fraction, EF 30 to 35% now improved to 50 to 55% #Hypertension, hyperlipidemia, by history Previous coronary stent placement in LAD, RCA who recently had angina pectoris and underwent stent placement in ramus intermedius on 04/05/2025. He has been on dual antiplatelet drug therapy, aspirin 81 mg daily and clopidogrel 75 mg daily, along with statin 40 mg atorvastatin and benazepril for hypertension and Lasix 40 mg daily. Patient's last echo taken 11/27 showed stage I diastolic dysfunction with estimated EF 35-40% Triglycerides 133, cholesterol 193, LDL 120, HDL 46. -ECHO (06/26/2025): 1. Left ventricle size is normal and systolic function is moderately reduced. Estimated ejection fraction is 50-55%. There is grade I diastolic dysfunction. 2. Right ventricle chamber size is normal and systolic function is normal. Estimated RVSP is 7 mmHg. 3. Trace MR, TR, AI. 4. The left atrium is normal. The right atrium is normal. 5. Normal IVC with estimated RA pressure 3 mmHg. 6. No evidence of PFO. Negative bubble study. Recommendations: - Resume aspirin and Plavix, can be resumed from cardiology standpoint. - Continue atorvastatin 80 mg at bedtime #Left supraspinatus and infraspinatus tear #Left-sided upper and lower weakness S/p TNK administration 06/26/25 #Status post left shoulder aspiration 06/29 #DM type II- well controlled #Hypothyroidism #Left upper arm pain #Post herpetic Neuralgia -Management per Primary Hospitalist team Thank you for the consult and allowing to participate in the care of the patient. Cardiology will continue to follow. Case discussed with Attending Physician Dr. Juventino Birmingham MD Internal Medicine PGY-2 Disclaimer: This note was dictated by speech recognition. Minor errors in cook apprentice may be present due to voice recognition software. Attending Provider Attestation/Addendum I reviewed the resident Kami Birmingham consultation progress note and agree with the resident findings and plan in the note above and have also edited the documentation to reflect my findings and plan. Juventino Kenney M.D. Interventional Cardiology
[2025-07-02] MEDS: ASPIRIN EC 81 MG TABEC PO (09:15)
[2025-07-02] MEDS: OXYBUTYNIN CHLOR 5 MG TABLET PO (09:15)
[2025-07-02] MEDS: TAMSULOSIN HCL 0.4 MG CAPSULE PO (09:15)
[2025-07-02] MEDS: INSULIN DEGLUDEC 5 UNIT/0.05 ML (PER 5 UNITS) 10 UNIT SC (09:15)
[2025-07-02 10:10] VITALS: PULSE 75
[2025-07-02] MEDS: ACETAMINOPHEN 325 MG TABLET 650 MG PO (11:08)
--- NOTE | 2025-07-02 13:04 | ESDS_ITS ---
<Statement entered by Yakov Kim MD - 07/03/25 13:41> Patient was seen and examined at bedside. I agree on the assessment and plan on this note. - Patient's plan and care discussed with my attending, Dr. Aisha Kim MD Internal Medicine PGY-3 Planned Discharge Date 07/02/25 DS: Providers Provider Date of admission: 06/26/25 03:34 Primary care physician: Physician No Primary/Family Admitting Provider: Chai Pedraza DO Attending Provider on Admission: Santa Salcedo DO Consults: 06/26/25 02:00 Consult to Neurology / Tele-Neurology Routine Comment: Consulting Provider: [facility] 06/26/25 03:39 Referral Speech Therapy Routine Comment: 06/26/25 06:50 PT [Referral Physical Therapy] Routine Comment: Physician Instructions: 06/26/25 07:23 Consult to Neurology / Tele-Neurology Routine Comment: post tnk Consulting Provider: Ollie Celestin 06/26/25 09:05 Consult to Cardiology Routine Comment: Consulting Provider: Henok Sorto Attending Provider on DC: Chan Leonard DO Discharging Provider: Chan Leonard DO DS: Diagnosis Problem List Completed Was Problem List Reviewed/Reconciled?: Yes Hospital Course Hospital Course Hospital course: Mr. Randle is a 79-year-old male with past medical history significant for recent coronary artery stent placed in March currently on aspirin and Plavix, shingles, diabetes mellitus, hypertension, BPH, thyroidectomy who presented to the ED at [facility] with new onset left-sided upper weakness. Per neuro exam in ED, patient noticed to have 3 out of 5 muscle strength at left shoulder, 4/5 muscle strength of left elbow and wrist. Patient was evaluated by teleneurologist, and NIH stroke scale found to be of 3, and administered TNK with patient permission after understanding the risks and benefits of medication. In addition to TNK, patient was given morphine 4 mg IV x 1, Tylenol 650 mg p.o. Q4 due to severe left upper arm pain. Head CT was negative for any acute hemorrhage and CT head negative for any large vessel occlusion. Patient was admitted to ICU for further monitoring status post TNK administration. Echo negative for PFO. Brain MRI negative for acute stroke but showed mild but definite dilatation of the extra-axial space overlying the frontal lobe convexities and anterior temporal lobes and sylvian cistern region consistent w/ mild atrophy. Lumbar spine MRI w/o contrast showed heterogeneous marrow signal involving all lumbar vertebral bodies concerning for osseous metastatic disease as well as severe overall spinal stenosis of L4-L5 including mild bilateral L4 ganglionic compression. Repeat head CT 24HR s/p TNK per protocol negative. Lumbar spine MRI w/ contrast planned, showed multiple foci of abnormal signal in the vertebral bodies again possibly suggestive of osteoblastic metastatic disease. PSA was ordered and was elevated at 17.48. Discussed with daughter possibility of prostate cancer given elevated PSA and bone lesion and recommended outpatient follow up with urologist. Patient was also found to have had ESBL growing on his urine culture and was given appropriate antibiotics inpatient and being prescribed outpatient antibiotics as well. Discharge Instructions - We are prescribing you antibiotic, Bactrim to take outpatient as prescribed - Follow up with school inspector within 1-2 weeks of discharge regarding restarting plavix - Follow up with your urologist outpatient within 1-2 weeks of discharge ? Continue taking all other home medications as prescribed ? Follow-up with PCP within 1-2 weeks of discharge ? If you do not have a PCP, you can follow-up at the [facility] (you can call [phone] to make an appointment) ? 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 Leonard & senior resident Dr. Julio Mcbride MD PGY-1 Time Spent with Patient Time attestation: Total time spent providing and/or coordinating discharge services: Time spent: Greater than 30 minutes Exam Vital Signs Temp Pulse Resp BP Pulse Ox O2 Del Method 97.3 F 75 19 120/65 98 Room Air 07/02/25 07:47 07/02/25 10:10 07/02/25 07:47 07/02/25 07:47 07/02/25 07:47 07/02/25 07:47 Narrative Exam General Appearance: Pt in no acute distress, conversational (Malay speaking). HEENT: NC/AT, no scleral icterus, no conjunctival pallor, MMM Lungs: CTAB, no wheezes or crackles appreciated CVS: RRR, S1/S2 heard, no murmurs or rubs appreciated ABD: Soft, non-tender, non-distended, BS + EXT: radial pulses 2+ BL, DP pulses 2 + BL SKIN: bruises on the lue/mid flank c/f hematoma violacious and deep maroon on the lateral scapula Neuro: A&O x 3. 5/5 in right upper and lower extremity. 5/5 to left lower extremity. proximal weakness of the lue, able to flex shoulder with passive range of motion, Psych: Appropriate mood and affect Discharge Plan Plan Patient Disposition: HOME (Self Care) Patient condition on transfer: Stable Care Plan Goals: - We are prescribing you antibiotic, Bactrim to take outpatient as prescribed - Follow up with school inspector within 1-2 weeks of discharge regarding restarting plavix - Follow up with your urologist outpatient within 1-2 weeks of discharge ? Continue taking all other home medications as prescribed ? Follow-up with PCP within 1-2 weeks of discharge ? If you do not have a PCP, you can follow-up at the [facility] (you can call [phone] to make an appointment) ? Return to ED if symptoms worsen or recur - Le recetamos el antibi?slade Bactrim para que lo tome en casa seg?n las indicaciones. - Acuda a harsh juliano de seguimiento con burton ur?logo en la consulta externa dentro de 1 a 2 semanas despu?s del deena. - Contin?e tomando todos los dem?s medicamentos que jazmín habitualmente seg?n lo recetado. - Acuda a harsh juliano de seguimiento con burton m?dico de cabecera dentro de 1 a 2 semanas despu?s del deena. - Si no tiene un m?dico de cabecera, puede acudir al [facility] armando (puede llamar al [phone] para programar harsh juliano). - Regrese a la yanira de emergencias si los s?ntomas empeoran o reaparecen. Prescriptions/Referrals Prescriptions/Med Rec: New sulfamethoxazole-trimethoprim [Bactrim DS] 800-160 mg tablet 1 tab PO BID 3 Days Qty: 6 0RF oxycodone-acetaminophen 7.5-325 mg tablet 1 tab PO Q8H MDD 22.5mg PRN (Reason: pain (scale score 4-6)) 6 Days Qty: 18 0RF Continued metformin [Glucophage] 500 MG tablet 500 mg PO BID Qty: 0 tamsulosin [Flomax] 0.4 MG capsule,extended release 24hr 0.4 mg PO QDAY Qty: 0 atorvastatin 40 mg tablet 40 mg PO QPM Qty: 30 0RF Jardiance 10 mg tablet 10 mg PO QAM Qty: 30 0RF levothyroxine 150 mcg Tablet 150 mcg PO QDAY aspirin 81 mg Tablet 81 mg PO QDAY benazepril [Lotensin] 10 mg Tablet 10 mg PO QDAY furosemide 20 mg tablet 20 mg PO QAM oxybutynin chloride 5 mg tablet 5 mg PO QDAY Held clopidogrel 75 mg Tablet 75 mg PO QDAY Hold Instructions: Resume on 07/09/25. To be resumed by PCP if no active bleed Referrals: No Primary/Family,Physician [Primary Care Provider] Patient/Caregiver Discharge Instructions Discharge Activity: as per physical therapy Education Materials: Intimacy After Stroke, The First Few Hours After a Stroke, Stroke: Taking Medicines, Stroke Mood Swings Depression, Preparing Your Home After Stroke, Stroke: Resources and Support, Stroke: Self-Care, Stroke: Tips for Swallowing, Discharge Instructions for Stroke, Risk Factors for Stroke, Stroke Regaining Movement, Stroke Self Care After, Stroke Prevent Another Caregiver, Stroke Prevention Activity, Arm Care After a Stroke, Good Positioning After a Stroke, Tests to Diagnose a Stroke Print Language: Malay Stand Alone Forms: Araceli Award Info., Patient Portal Info Letter Discharge Order Discharge Orders: Discharge (Routine); Ordered 07/02/25 Ordered By: Yakov Kim Quality Discharge Quality Measures VTE prophylaxis (held due to tnk administration) Attestestation MD Attestation I have discussed and was present for the essential components of the discharge history, physical examination, diagnosis, and discharge treatment plan with the resident. I agree with the patient's discharge care as documented by the resident and amended herein by me. Arias Leonard, DO. The patient understood all discharge instructions, all questions were answered satisfactorily. The patient was instructed to return to the Emergency Department is symptoms worsened or persisted. Patient will need close PCP follow-up, we did give the information to our [facility]. She will also need to follow-up with oncology and nephrology for further workup for suspected multiple myeloma. In regard to the patient's left shoulder synovial fluid analysis, culture resulted and Staphylococcus epidermidis which likely is a contaminant, it is more common in [place]. As such, antibiotics that we have had the patient on to include Zosyn and the Bactrim we will discharge on, would cover the infection. See resident note above for additional details in regards to hospital stay. All questions were answered satisfactorily, the patient was stable, afebrile tolerating p.o. intake and ambulatory at time of discharge home. Although this document has been carefully reviewed, there may still be some phonetic and other typographical errors. These errors are purely grammatical due to imperfections in the software program and should not be construed in any way to compromise the substance of the patient's medical care during this visit.
== END 2025-07-02 11:17 | disposition home or self-care (01) | DRG 948 ==
LOC: SERX 03:03 → S2SX 06-27 05:59 → SERHOLD 06-27 05:59 → S2SX 06-28 09:14 → S3NX 06-28 15:37
PROVIDERS: Internal Medicine; Student in an Organized Health Care Education/Training Program; Admitting Provider Internal Medicine; Emergency Provider Emergency Medicine; Visit Provider Student in an Organized Health Care Education/Training Program
DX: R53.1 Weakness (principal); I50.22 Chronic systolic (congestive) heart failure; I13.0 Hypertensive heart and chronic kidney disease with heart failure and stage 1 through stage 4 chronic kidney disease, or unspecified chronic kidney disease; B02.29 Other postherpetic nervous system involvement; D62 Acute posthemorrhagic anemia; Z16.12 Extended spectrum beta lactamase (ESBL) resistance; N39.0 Urinary tract infection, site not specified; N17.9 Acute kidney failure, unspecified; E11.22 Type 2 diabetes mellitus with diabetic chronic kidney disease; N18.9 Chronic kidney disease, unspecified; E89.0 Postprocedural hypothyroidism; I25.10 Atherosclerotic heart disease of native coronary artery without angina pectoris; N40.0 Benign prostatic hyperplasia without lower urinary tract symptoms; Z79.82 Long term (current) use of aspirin; Z95.5 Presence of coronary angioplasty implant and graft; Z79.02 Long term (current) use of antithrombotics/antiplatelets; E78.00 Pure hypercholesterolemia, unspecified; Z79.84 Long term (current) use of oral hypoglycemic drugs; Z79.899 Other long term (current) drug therapy; Z79.890 Hormone replacement therapy; Z85.850 Personal history of malignant neoplasm of thyroid; Z86.19 Personal history of other infectious and parasitic diseases; Z88.6 Allergy status to analgesic agent; S40.022A Contusion of left upper arm, initial encounter; W18.30XA Fall on same level, unspecified, initial encounter
CPT/HCPCS: 36415; 70450; 70496; 70498; 70544; 71045; 72148; 72149; 73030; 73060; 73221; 76604; 76998; 80053; 80061; 80069; 80307; 81001; 82270; 82550; 83036; 83735; 84100; 84153; 84484; 84703; 85014; 85018; 85025; 85379; 85610; 85652; 85730; 86140; 86850; 86900; 86901; 86923; 87070; 87075; 87077; 87081; 87086; 87186; 87205; 92610; 93005; 93225; 93306; 93971; 96374; 97162; 99285; A4649; A9577; J0696; J1171; J1815; J2270; J2543; J3101; J3490; J7050; P9016; Q9967; A9270

== ENCOUNTER → 2025-07-05 | Outpatient (CLI) | payer OTHER, MEDICAID, SELFPAY ==
--- NOTE | 2025-07-05 14:25 | XR_ITS ---
Examination: Lumbar spine, 5 views Technique: Lumbar spine AP, lateral, coned lateral lower lumbar spine, bilateral obliques 5 views Exam date and time: July 05, 2025, 1442 hours INDICATIONS: Lower back pain several years COMPARISON: February 11, 2025 FINDINGS: Prominent lumbar spondylosis Diffuse advanced facet arthropathy No lumbar fracture Mild to moderate diffuse lumbar disc narrowing, most prominent at L5-S1 L3-L4 Grade 1 anterolisthesis L4 on L5 IMPRESSION: Prominent lumbar spondylosis Mild to moderate diffuse lumbar degenerative disc disease most severe at L5-S1, L3-L4
== END | disposition home or self-care (01) ==
PROVIDERS: PCP Internal Medicine; Referring Provider Internal Medicine; Visit Provider Internal Medicine
DX: M47.816 Spondylosis without myelopathy or radiculopathy, lumbar region (principal); M51.370 Other intervertebral disc degeneration, lumbosacral region with discogenic back pain only; M51.360 Other intervertebral disc degeneration, lumbar region with discogenic back pain only
CPT/HCPCS: 72110